=== PATIENT | female | born 1965 | race Caucasian/White ===

== ENCOUNTER 2020-02-10 10:08 | Emergency (ER) | payer OTHER, SELFPAY ==
--- NOTE | ~2020-02-10 | XR_ITS ---
EXAMINATION: XR chest 2V DATE: 02/10/2020 10:33 INDICATION: Posterior back pain. TECHNIQUE: Frontal and lateral views of the chest were obtained. COMPARISON: Chest 2 views 04/06/2019 FINDINGS: There is mild scarring at the lung apices. There is mild atelectasis in lingula. There are lucencies in the lungs, consistent with emphysema. No pleural effusion or pneumothorax. The heart siz e is normal. Surgical clips in the right upper quadrant are likely from cholecystectomy. IMPRESSION: 1. Emphysema. 2. Mild scarring at the lung apices and mild atelectasis in lingula. Reviewed, dictated and finalized at location A.
[2020-02-10 10:16] VITALS: BP 138/84; PULSE 110; RESP 16; TEMP 36.4; O2SAT 99
--- NOTE | 2020-02-10 10:27 | ED.GENADULT ---
HPI - General Adult General Chief complaint: Upper Respiratory Infection Stated complaint: Upper Back Pain Time Seen by Provider: 02/10/20 10:32 Source: patient and RN notes reviewed Mode of arrival: ambulatory Limitations: no limitations History of Present Illness HPI narrative: 54-year-old female presents with complaints of upper respiratory symptoms, chest wall, and upper back tenderness, and intermittent dry cough for the past 7 days. Augmentin for the past 17 days for Sinus Infection, in which she has 3 more days to take, Flonase, and Tylenol (last one 02/09/20) with some relief. Recently completed a Medrol dose pack. Intermittent dry cough without chest congestion. History of COPD and Pneumonia. Denies rhinorrhea and nasal congestion. Denies sore throat. No drooling, neck or throat swelling. No cardiac chest pain, wheezing, or shortness of breath. Exacerbation factor consist of wearing surgical mask. Denies nausea, vomiting, and abdominal pain. Tolerating liquids well. Remains active. The patient reports she have not been diagnosed with COVID-19. The patient reports she is not waiting for the results of a COVID-19 lab test. The patient reports she do not have fever, chills, weakness, fatigue, myalgia, or facial swelling. The patient reports she do not have a new or worsening cough or shortness of breath. Denies chest pain. The patient reports she do not have any rhinorrhea, congestion, sore throat, nausea, vomiting, abdominal pain, and diarrhea. Tolerating po intake well. Denies recent traveling. Denies concerns for COVID-19 or exposures been home since [id number] order except for essential household needs, working, and return home. At this time, patient is not suspected of having COVID-19. Some parts of this dictation were generated by voice recognition software and may contain typographical and/or grammatical inaccuracies. Related Data Home Medications Medication Instructions Recorded Confirmed albuterol sulfate 2 inh INHALATION DIRECTED 02/10/20 02/10/20 Allergies Allergy/AdvReac Type Severity Reaction Status Date / Time pseudoephedrine AdvReac Palpitation Verified 02/10/20 10:23 [From EBD[employer]nik[employer]] s Review of Systems Review of Systems: Narrative: CONSTITUTIONAL: Denies fever, chills, sweats. EYES: Denies visual changes, redness, discharge. ENT: Denies rhinorrhea, congestion, sore throat, otalgia. CARDIOVASCULAR: Denies chest pain, palpitations, edema. RESPIRATORY: Denies dyspnea, wheezing. Complains of intermittent dry cough. GASTROINTESTINAL: Denies abdominal pain, nausea, vomiting, diarrhea. GENITOURINARY: Denies dysuria, hematuria, abnormal discharge. SKIN: Denies rash or itching. MUSCULOSKELETAL: Denies joint pain, myalgia. Complains of diffused chest wall and upper back tenderness. NEUROLOGIC: Denies numbness or focal weakness. PSYCHIATRIC: Denies anxiety or depression. All systems reviewed & are unremarkable except as noted in HPI and below. [facility] Past Medical History Medical History (Updated 02/14/20 @ 23:25 by JULIAN Rowland) Acute infection of sinus Colon abnormality History of colon infection 44 years ago COPD (chronic obstructive pulmonary disease) Nicotine abuse Quite 5 years ago Pneumonia frequent Umbilical hernia X2 Surgical History Surgical History (Updated 02/14/20 @ 23:25 by JULIAN Rowland) History of cholecystectomy History of colonoscopy History of hernia surgery X2 umbilical last repaired 08/2019 or 10/04 per [facility] History of hysterectomy History of shoulder surgery bilateral History of tonsillectomy Hx of appendectomy Family History Family History (Updated 02/14/20 @ 23:27 by JULIAN Rowland) Father Hypertension ETOH abuse Diabetes mellitus Mother AAA (abdominal aortic aneurysm) Social History Social History (Updated 02/14/20 @ 23:28 by JULIAN Rowland) Smoking status: Former smoker T
== END 2020-02-10 11:04 | disposition home or self-care (01) ==
PROVIDERS: Emergency Provider Nurse Practitioner Family; PCP Internal Medicine
DX: M94.0 Chondrocostal junction syndrome [Tietze] (principal); J43.9 Emphysema, unspecified; Z87.891 Personal history of nicotine dependence; R03.0 Elevated blood-pressure reading, without diagnosis of hypertension
CPT/HCPCS: 71046; 99213; G0463

== ENCOUNTER 2022-07-11 14:26 | Emergency (ER) | payer OTHER, SELFPAY ==
--- NOTE | ~2022-07-11 | XR_ITS ---
XR chest 2V 07/11/2022 15:06 Indication: Cough Procedure: 2 view chest Comparison: 02/10/2020 Findings: Heart size normal. There are nodular infiltrates in the left lung base. There is retrocardi ac atelectasis. No pleural effusion, edema or pneumothorax. Impression: 1: Nodular infiltrates left lung base. Recommend follow-up CT chest to exclude parenchymal nodules. 2: Retrocardiac atelectasis. Reviewed, dictated and finalized at location B. Impression: 1: Nodular infiltrates left lung base. Recommend follow-up CT chest to exclude parenchymal nodules. 2: Retrocardiac atelectasis.
--- NOTE | 2022-07-11 14:35 | ED.URI ---
HPI - URI/Sore Throat General Chief Complaint: Back Pain/Injury Stated Complaint: check fluid on lungs Time Seen by Provider: 07/11/22 14:36 Source: patient and RN notes reviewed History of Present Illness HPI Narrative: patient is a 56-year-old female who presents to urgent care with complaints of possible fluid on the lungs . Patient states that she has had a history of pneumonia. States that she is having a mid back pain that started on Friday and a chronic cough since her diagnosis of COVID in May. Patient does have a history of COPD and has been using her inhalers and nebulizers. Denies any fever chest pain not to complaints. No distress noted. Patient aware of the plan of care. Some parts of this dictation were generated by voice recognition software and may contain typographical and/or grammatical inaccuracies. Related Data Home Medications Medication Instructions Recorded Confirmed albuterol sulfate 90 mcg/actuation 2 inh inhalation DIRECTED 02/10/20 02/10/20 aerosol inhaler Allergies Allergy/AdvReac Type Severity Reaction Status Date / Time pseudoephedrine AdvReac Palpitation Verified 02/10/20 10:23 [From [employer]] s Review of Systems Review of Systems: CONSTITUTIONAL: Denies fever, chills, or sweats. EYES: Denies visual changes, redness, or discharge. ENT: Denies rhinorrhea, congestion, sore throat, or otalgia. CARDIOVASCULAR: Denies chest pain, palpitations, or edema. RESPIRATORY: Productive cough without dyspnea GASTROINTESTINAL: Denies abdominal pain, nausea, vomiting, or diarrhea. GENITOURINARY: Denies dysuria or hematuria. SKIN: Denies rash or itching. MUSCULOSKELETAL: reports of midback pain NEUROLOGIC: Denies headache, numbness, or weakness. All other systems reviewed are negative, except as documented in HPI. [facility] Past Medical History Medical History (Updated 07/11/22 @ 15:23 by JULIAN Ventura) Acute infection of sinus Colon abnormality History of colon infection 44 years ago COPD (chronic obstructive pulmonary disease) Nicotine abuse Quite 5 years ago Pneumonia frequent Umbilical hernia X2 Surgical History Surgical History (Updated 02/14/20 @ 23:25 by JULIAN Rowland) History of cholecystectomy History of colonoscopy History of hernia surgery X2 umbilical last repaired 08/2019 or 10/04 per [facility] History of hysterectomy History of shoulder surgery bilateral History of tonsillectomy Hx of appendectomy Family History Family History (Updated 02/14/20 @ 23:27 by JULIAN Rowland) Father Hypertension ETOH abuse Diabetes mellitus Mother AAA (abdominal aortic aneurysm) Social History Social History (Updated 02/14/20 @ 23:28 by JULIAN Rowland) Smoking status: Former smoker Tobacco type: cigarettes Second hand tobacco smoke exposure: No Smoking end date: 09/15/14 Alcohol intake: current Alcohol use details: Socially Substance use: never Gender identity (if verbalized by the patient): Female Comments At the time of my signature, I reviewed and agree with the nursing past medical, surgical, social, and family history. There is no relevant family history pertinent to the patient complaint. Exam Narrative: GENERAL: This is a well-nourished, well-developed patient, in no apparent distress. HEAD: normocephalic, atraumatic. EYES: PERRL. Sclera clear/white. Vision is grossly intact. EARS: External ears normal, auditory canals clear and without drainage, TMs normal without perforation. Hearing grossly intact. NOSE: External nose normal with no obvious nasal discharge, nares without redness, no rhinorrhea. THROAT: Mucous membranes moist, posterior pharynx clear. moderate postnasal drainage NECK: Neck supple, non-tender without lymphadenopathy, masses or thyromegaly. CARDIOVASCULAR: Regular rate and rhythm RESPIRATORY: expiratory wheezes throughout with diminished right lower lobe SKIN
[2022-07-11 14:38] VITALS: BP 151/68; PULSE 80; RESP 20; TEMP 36.9; O2SAT 99
== END 2022-07-11 15:22 | disposition home or self-care (01) ==
PROVIDERS: Emergency Provider Nurse Practitioner Family; PCP Nurse Practitioner Adult Health
DX: R91.1 Solitary pulmonary nodule (principal); Z87.891 Personal history of nicotine dependence; J44.9 Chronic obstructive pulmonary disease, unspecified
CPT/HCPCS: 71046; 99213; G0463

== ENCOUNTER 2024-05-07 10:51 | Emergency (ER) | payer OTHER, SELFPAY ==
[2024-05-07 10:57] VITALS: BP 124/80; PULSE 83; RESP 16; TEMP 36.7; O2SAT 99
--- NOTE | 2024-05-07 11:06 | ED.FEMALEGU ---
HPI - Female Genitourinary General Chief complaint: Urogenital-Female Stated complaint: poss bladder infection Time Seen by Provider: 05/07/24 11:37 Source: patient and RN notes reviewed Mode of arrival: ambulatory Limitations: no limitations History of Present Illness HPI Narrative: 58-year-old female presents with multiple complaints. She reports urine frequency for about 6 weeks. Reports however she has been increasing her fluid intake by quite a bit. She reports general malaise and fatigue. She reports upper back discomfort. She reports some shortness of breath, cough. She reports history of COPD. She reports feeling sweaty. She reports she used her albuterol inhaler and nebulizer today. MD elicited complaint: other (urine frequency) Related Data Home Medications Medication Instructions Recorded Confirmed albuterol sulfate 90 mcg/actuation 2 inh inhalation DIRECTED 02/10/20 05/07/24 aerosol inhaler carbamazepine 100 mg 100 mg PO DAILY 05/07/24 05/07/24 tablet,extended release,12 hr omeprazole 20 mg capsule,delayed 20 mg PO DAILY 05/07/24 05/07/24 release Allergies Allergy/AdvReac Type Severity Reaction Status Date / Time pseudoephedrine AdvReac Palpitation Verified 05/07/24 11:21 [From Taz] s Review of Systems Review of Systems: CONSTITUTIONAL: Reports malaise, fatigue, sweats. Denies fever. CARDIOVASCULAR: Denies chest pain, palpitations, or edema. RESPIRATORY: Reports cough, dyspnea. GASTROINTESTINAL: Reports intermittent lower abdominal discomfort, denies abdominal pain, nausea, vomiting, diarrhea GENITOURINARY: Denies dysuria, urgency, suprapubic pressure. Denies flank pain or hematuria. Reports urine frequency SKIN: Denies rash or itching. MUSCULOSKELETAL: Reports upper back pain, myalgia. All systems reviewed & are unremarkable except as noted in HPI and below PMFSH Past Medical History Medical History (Updated 05/07/24 @ 11:48 by Kim Ortiz NP) Acute infection of sinus Colon abnormality History of colon infection 44 years ago COPD (chronic obstructive pulmonary disease) Nicotine abuse Quite 5 years ago Pneumonia frequent Umbilical hernia X2 Surgical History Surgical History (Updated 02/14/20 @ 23:25 by JULIAN Rowland) History of cholecystectomy History of colonoscopy History of hernia surgery X2 umbilical last repaired 08/2019 or 1/20 per Terri History of hysterectomy History of shoulder surgery bilateral History of tonsillectomy Hx of appendectomy Family History Family History (Updated 02/14/20 @ 23:27 by JULIAN Rowland) Father Hypertension ETOH abuse Diabetes mellitus Mother AAA (abdominal aortic aneurysm) Social History Social History (Updated 02/14/20 @ 23:28 by JULIAN Rowland) Smoking status: Former smoker Tobacco type: cigarettes Second hand tobacco smoke exposure: No Smoking end date: 09/15/14 Alcohol intake: current Alcohol use details: Socially Substance use: never Living arrangements: with family Occupation/Education: occupation Gender identity (if verbalized by the patient): Female Comments At time of signature, agree with nursing past medical, surgical, social and family history. There is no relevant family history pertinent to the presenting complaint Exam Narrative: GENERAL: Well-appearing, well-nourished, and in no acute distress. HEAD: Normocephalic, atraumatic. EYES: PERRLA, sclera clear ENT: Nares clear, turbinates pink, no rhinorrhea or epistaxis. Mucous membranes moist. TM pearly stout with sharp light reflex bilaterally; no tragal tenderness. Oropharynx without erythema or lesions. Tonsils not enlarged and without exudate. NECK: Supple. CHEST: No respiratory distress. Scattered expiratory wheeze, scattered rhonchi. No bony deformities, no asymmetry. Speaks in full sentences. HEART: Regular rate and rhythm. No murmur heard. Normal periph
[2024-05-07 11:15] LABS: EDUAAPPEAR Clear; EDUABILI Negative; EDUABLOOD Negative; EDUACOLOR1 Yellow; EDUAGLUCOSE Negative; EDUAKETONE Negative; EDUALEUKO Negative; EDUANITRATE Negative; EDUAPH 5.5; EDUAPROTEIN Negative; EDUASPGRAVITY 1.015; EDUAUROBILI 0.2
== END 2024-05-07 11:50 | disposition home or self-care (01) ==
PROVIDERS: Emergency Provider Nurse Practitioner
DX: J44.1 Chronic obstructive pulmonary disease with (acute) exacerbation (principal); Z87.891 Personal history of nicotine dependence
CPT/HCPCS: 81003; 99213; G0463

== ENCOUNTER 2024-11-23 14:30 | Emergency (ER) | payer OTHER, SELFPAY ==
--- NOTE | ~2024-11-23 | XR_ITS ---
EXAMINATION: XR chest 2V DATE: 11/23/2024 15:09 INDICATION: Wheezing. Back pain. TECHNIQUE: Frontal and lateral views of the chest were obtained. COMPARISON: Chest 2 views 07/11/2022 FINDINGS: There is no pneumonia, pleural effusion, or pneumothorax. The heart size is normal. There a re surgical clips in the abdomen. IMPRESSION: 1. No acute cardiopulmonary disease. Reviewed, dictated and finalized at location B.
[2024-11-23 14:39] VITALS: BP 151/88; PULSE 94; RESP 18; TEMP 36.7; O2SAT 97
--- NOTE | 2024-11-23 14:52 | ED_ITS ---
HPI - URI/Sore Throat General Chief Complaint: Upper Respiratory Infection Stated Complaint: Back Pain Time Seen by Provider: 11/23/24 14:57 Source: patient, RN notes reviewed and old records reviewed Mode of arrival: ambulatory Limitations: no limitations History of Present Illness HPI Narrative: 59 year old female who presents to [facility] care with complaints of having influenza 3 weeks ago and continues to have cough and pain in her back over left lower lung stout. Patient has history of COPD and did quit smoking 1 year ago. Patient reports that she has been using her albuterol nebulizer taking Benadryl and started on Prednisone at 10mg tabs. Patient reports that she has not had any recent fevers MD elicited complaint: cough and other (pain in left back) Related Data Home Medications ?Medication ?Instructions ?Recorded ?Confirmed ?Last Taken ?Type albuterol sulfate 90 mcg/actuation 2 inh inhalation DIRECTED 02/10/20 05/07/24 Unknown History aerosol inhaler carbamazepine 100 mg 100 mg PO DAILY 05/07/24 05/07/24 Unknown History tablet,extended release,12 hr omeprazole 20 mg capsule,delayed 20 mg PO DAILY 05/07/24 05/07/24 Unknown History release prednisone 10 mg tablet mg 11/23/24 Unknown History Allergies Allergy/AdvReac Type Severity Reaction Status Date / Time pseudoephedrine (From AdvReac Palpitation Verified 05/07/24 11:21 Sudafelisbet) s Review of Systems Review of Systems: CONSTITUTIONAL: Denies malaise, chills, sweats, or fever. EYES: Denies visual changes, redness, or discharge. ENT: Reports rhinorrhea, congestion, no sinus pain, no otalgia and no sore throat. CARDIOVASCULAR: Denies chest pain, palpitations, or edema. RESPIRATORY: Reports cough.? Denies acute dyspnea, reports pain in left back over lower lung area. GASTROINTESTINAL: Denies abdominal pain, nausea, vomiting, diarrhea SKIN: Denies rash or itching. MUSCULOSKELETAL: Denies myalgia. NEUROLOGIC: Denies headache. All systems reviewed & are unremarkable except as noted in HPI and below PMFSH Past Medical History Medical History Colon abnormality History of colon infection 44 years ago Nicotine abuse Quite 5 years ago Umbilical hernia X2 Pneumonia frequent Acute infection of sinus COPD (chronic obstructive pulmonary disease) Surgical History Surgical History History of hernia surgery X2 umbilical last repaired 08/2019 or 10/04 dre [facility] History of colonoscopy History of tonsillectomy History of hysterectomy History of shoulder surgery bilateral History of cholecystectomy Hx of appendectomy Family History Family History Father Hypertension ETOH abuse Diabetes mellitus Mother AAA (abdominal aortic aneurysm) Social History Social History (Updated 11/26/24 @ 16:25 by Park Hunter NP) Smoking status: Former smoker Tobacco type: cigarettes Second hand tobacco smoke exposure: No Additional smoking assessment comments: Reports that she quit 1 year ago Alcohol intake: current Alcohol use details: Socially Substance use: never Living arrangements: with family Occupation/Education: occupation Gender identity (if verbalized by the patient): Female Comments At time of signature, agree with nursing past medical, surgical, social and family history. There is no relevant family history pertinent to the presenting complaint Exam Narrative: GENERAL: Well-appearing, well-nourished, and in no acute distress. HEAD: Normocephalic EYES: PERRLA, conjunctivae clear ENT: Nares clear, turbinates edematous and erythematous, clear discharge. Mucous membranes moist. TM pearly stout with dull light reflex bilaterally; no tragal tenderness. Oropharynx erythematous without lesions. Tonsils not enlarged and without exudate, no drooling, no hoarseness, no trismus, uvula midline.post nasal drainage NECK: Supple. No lymphadenopathy CHEST: scattered wheezing on auscultation, breath sounds equal.+ wheezing,no rhonchi, rales, or stridor. No respiratory distress, speaks in full sentences.cough productive at times, SAO2 97% on room air HEART: Regular rate and rhythm. No murmur heard. SKIN: Warm, dry, no rash. NEURO: Alert and oriented x3. PSYCH: Normal mood and affect Course Course Emergency Course: Patient is aware of diagnosis, understands and agrees to treatment plan.? Anticipatory guidance given.? Patient agrees to follow-up as directed and is aware of reasons to seek care at the emergency department. Portions of this record may have been created with voice recognition software Level of Care: Express Care Visit Vital Signs Vital signs: Vital Signs Temperature 36.7 C 11/23/24 14:39 Pulse Rate 94 11/23/24 14:39 Respiratory Rate 18 11/23/24 14:39 Blood Pressure 151/88 H 11/23/24 14:39 Pulse Oximetry 97 11/23/24 14:39 Oxygen Delivery Room Air 11/23/24 14:39 Temperature 36.7 C 11/23/24 14:39 Pulse Rate 94 11/23/24 14:39 Respiratory Rate 18 11/23/24 14:39 Blood Pressure 151/88 H 11/23/24 14:39 Pulse Oximetry 97 11/23/24 14:39 Oxygen Delivery Room Air 11/23/24 14:39 Reviewed MDM - URI/Sore Throat MDM Narrative Medical decision making narrative: Differential diagnosis considered: Roy virus, strep pharyngitis, allergic rhinitis, upper respiratory tract infection, sinusitis, rhinosinusitis, nasopharyngitis. viral pharyngitis, otitis media, otitis externa, pneumonia, bronchitis, viral cough syndrome, viral syndrome, and influenza, COPD Exacerbation..? Exam findings show no acute concerns or changes; patient is non- toxic appearing and is in no distress.? Patient is appropriate for outpatient treatment and follow-up. Differential Diagnosis Differential diagnosis: Likely upper respiratory infection, viral infection, bronchitis and other (exacerbation of COPD) Medical Records Attestation: I reviewed the patient's medical records. Lab Data Attestation: I reviewed the patient's lab results. Imaging Data Attestation: I personally reviewed and interpreted this imaging study as follows: My impression: no acute cardiopulmonary disease Radiologist's impression: [place] [id number] XRay Report Signed Patient: Terri Fajardo : 1965 MR#: [id number] Age: 59 Acct:[id number] Loc: [facility] ADM Date: 11/23/24Attending Dr: Ordering Physician: Park Hunter APRN Date of Service: 11/23/24 Procedure(s): XR chest 2V Accession Number(s): [id number] cc: Park Hunter APRN; [facility] EXAMINATION: XR chest 2V DATE: 11/23/2024 15:09 INDICATION: Wheezing. Back pain. TECHNIQUE: Frontal and lateral views of the chest were obtained. COMPARISON: Chest 2 views 07/11/2022 FINDINGS: There is no pneumonia, pleural effusion, or pneumothorax. The heart si ze is normal. There are surgical clips in the abdomen. IMPRESSION: 1. No acute cardiopulmonary disease. Reviewed, dictated and finalized at location B. Please be advised this is a medical document. It is intended for [id number] communication. It is written in medical language and may contain unfamiliar abbreviations or verbiage. Medical documents are intended to carry relevant information, facts as evident, and the clinical opinion of the practitioner at the time of the encounter. This report may have been done utilizing a voice recognition system. Attempts have been made to correct errors. However, there may be uncorrected grammatical, spelling, and recognition errors present. The file time of this note does not necessarily represent the time of service. Dictated By: Danilo De La Vega MD 11/23/24 1512 Signed By: <Electronically signed by Danilo De La Vega MD in OV> Critical Care Time Critical Care Time Critical Care Time: No Discharge Plan Discharge Clinical Impression: COPD (chronic obstructive pulmonary disease) Qualifiers: COPD type: emphysema Emphysema type: unspecified Qualified Code(s): J43.9 - Emphysema, unspecified Patient Disposition: Home, Self-Care Condition: Stable Instructions: Antibiotic Form, COPD (Chronic Obstructive Pulmonary Disease) (ED) Additional Instructions: Increase fluids especially juices and water [id number] cough and cold medicine of your choice for your symptoms Recommend Mucinex daily Continue your inhaler/nebulizer as directed Steroids as directed--take with food heat to the face 20-30 minutes 4-6 times a day for pain Salt water gargles, throat lozenges or throat sprays as desired If your symptoms persist, change or worsen significantly before you can contact your personal physician then please, without delay, go to the emergency department for further evaluation. Follow-up with PCP in 7-10 days or sooner if needed Follow up with PCP soon in regards to your blood pressure which is elevated above threshold for referral. Blood pressure above 120/80 may indicate pre- hypertension. 151/88 Patient Language: Kazakh Prescriptions: New prednisone 20 mg tablet 40 mg PO DAILY 5 Days Qty: 10 0RF No Action albuterol sulfate 90 mcg/actuation HFA aerosol inhaler 2 inh INHALATION DIRECTED carbamazepine 100 mg tablet extended release 12 hr 100 mg PO DAILY omeprazole 20 mg capsule,delayed release(DR/EC) 20 mg PO DAILY prednisone 10 mg tablet Follow-up/Referrals: [facility] [Primary Care Provider] - Time of Disposition: 15:29 Quality [place] Coma Scale Eyes: Open Verbal: Oriented and Alert Motor: Follows Commands [place] Coma Total Score: 15
--- OUTSIDE RECORDS SUMMARY | 2024-11-23 16:25 | XMS_ITS | Encounter Summary ---
Author Organization [facility] Address [address] [place] [address] Phone Care Team Providers Care Lumber Material Handler Name Role Phone Venkat Carrion MD Primary Care Provider [phone] Soni Dougherty APRN Primary Care Provider [phone] Diamond Coffman APRN, DYNAMICS AX CONSULTANT Primary Care Pro vider Jagdish Hightower MD Unavailable Dominique Bernstein MD Primary Care Provider [phone] Reason for Visit * Reason Comments Medication Refill Encounter Details Date Type Department Care Team (Late st Contact Info) Description 12/09/2019 Refill [facility] [place] [address] Jagdish Hightower MD [address] [place] [address] Medication Refill Social History Tobacco Use Types Packs/Day Years Used Date Smoking Tobacco: Former Cigarettes 0.3 35 0 03/03/1981 - 03/03/2016 Smokeless Tobacco: Never Comments:down to 1-2 cigaret gabriele today Alcohol Use Standard Drinks/Week Comments Yes 0 (1 standard drink = 0.6 oz pur e alcohol) OCCASSIONALLY SOCIALLY PHQ-2 Answer Date Recorded PHQ-2 Score 0 05/28/2019 Comments No Sex and Gender Information Value Date Recorded Sex Assigned at Not on file Legal Sex Female 9:39 PM CDT Gender Identity Not on file Sexual Orientation Not on file documented as of this encounter Plan of Treatment Upcoming Encounters Date Type Department Care Team (Late st Contact Info) Description 12/03/2024 10:45 AM CDT Office Visit [facility] - Pulmonology & Sleep Medicine [facility] [address] [place] [address] Jagdish Hightower MD [address] [place] [address] documented as of this encounter Visit Diagnoses Not on filedocumented in this encounter Additional Health Concerns Infection Onset Date Last Indicated Resolved Time COVID - 19 06/26/2020 06/26/2020 06/28/2020 4:37 PM CDT COVID - 19 08/22/2020 08/22/2020 08/26/2020 6:00 PM HOME MANAGER COVID - 19 05/25/2021 05/25/2021 06/14/2021 12:1 6 AM CDT Assessment Noted Time PHQ-9 Depression Total Score: 0 09/29/19 20 1:04 PM HOME MANAGER documented as of this encounter Care Teams Lumber Material Handler Relationship Specialty Start Date End Date Venkat Carrion MD [address] [facility] [place] [address] PCP - General Family Medicine 07/27/15 02/20/22 Soni Dougherty APRN [address] [facility] [place] [address] PCP - General Advanced Practice Nurse 02/21/22 09/18/22 Diamond Coffman APRN, DYNAMICS AX CONSULTANT [address] [place] [id number] PCP - General Certified Nurse Practitioner 09/19/22 01/21/24 Dominique Bernstein MD [address] [address] PCP - General Family Medicine 01/22/24 Jagdish Hightower MD [address] [place] [address] Consulting Physician Pulmonary Disease 07/25/22 documented as of this encounter
--- OUTSIDE RECORDS SUMMARY | 2024-11-23 16:25 | XMS_ITS | Data Portability ---
Author Organization [facility] Address [address] [place] [address] Assessment No assessment recorded. Plan of Treatment Reminders Order Date Submit Date Provider Last Modified By Organization Details Last Modified Time Details Appointments SONG ALCANTAR T 30 2024 10:15A M Richard Sanchez MD Not available Not available Not available Lab glucos e, finger stick, blood 2023 024 [email or web address] In-Office Order, Internal Use Only DO Not Attach Compendium DO Not Attach Compendium, Do Not Delete/merge, [id number] 04/26/2024 13:03:37 HbA1c (hemog lobin A1c), blood 2023 024 [facility], [address] [place] [address], [facility], [place], [address], 01/30/2024 11:14:38 CMP, serum or plasma 2023 024 [facility], [address] [place] [address], [facility], [place], [address], 01/30/2024 06:19:30 TSH, ultra- sensit chrissy, serum 2023 024 [facility], [address] [place] [address], [facility], [place], [address], 01/30/2024 11:14:37 CBC w/ auto diff 2023 024 [facility], [address] [facility], [facility], [place], [address], 01/30/2024 06:19:31 Hepati tis C IgG Ab, qual, serum 2023 024 [facility], [address] [facility], [place], [address], 01/30/2024 11:14:36 HIV 1 + 2, meanin gful use set 2023 024 [facility], [address] [facility], [facility], [place], [address], 01/30/2024 11:14:39 Referral behavi oral health referr vt 2023 024 [facility] Oma Reynoso [facility], 4 [facility] , [address], [place], [address], 04/16/2024 11:00:55 gastro entero logist referr vt 2023 024 [email or web address] [address] Gianna Silverman MD, [address] [place], [address], 05/31/2024 10:31:20 Procedures None record ed. Surgeries None record ed. Imaging MAMMO, screen ing, digita l, bilate ral 2023 024 [email or web address] [facility], [address] [facility] , [place], [address], 06/18/2024 09:38:14 Medication Orders Medrol (Schuyler) 4 mg tablet s in a dose pack 2023 [facility], [address], [place], [address], 04/26/2024 13:03:37 colchi cine 0.6 mg tablet 2023 024 [facility] [place], [address], [place], [address], 04/26/2024 13:03:38 nicoti ne 7 mg/24 hr daily transd ermal patch [email or web address], [address] [place], [address], 01/29/2024 18:08:45 carbam azepin e ER 100 mg tablet ,exten ded releas e,12 hr 2023 [facility], [address] [place], [address], 01/29/2024 09:48:30 Ford Nasal 0.65 % spray aeroso l 2023 [facility] [address] [place], [address], 11/27/2023 15:16:54 Patient TargetsNo targets recorded. Patient Instructions Encounter Date Encounter Id Patient Instructions Last Modified By Organization Details Last Modified Time 11/27/2023 [id number] A healthy lifestyle: care instructions [email or web address] Not available 11/27/2023 15:16:41 Attending Physician Addendum I did not personally see or examine the patient with the resident. I was physically present to provide indirect supervision through entire encounter. I have reviewed the documentation and agree with the history, physical findings, work-up, and medical decision making as recorded. Jacqui Lowe MD [email or web address] Not available 11/27/2023 15:29:58 01/29/2024 [id number] Quitting Tobacco : Care Instructions [email or web address] Not available 01/29/2024 09:48:23 smoking cessatio n counseling, greater than 3 minutes up to 10 minutes [email or web address] Not available 01/29/2024 09:48:23 Attending Physician Attestation I did not personally see or examine the patient with the resident. I was physically present to provide indirect supervision through entire encounter. I have reviewed the documentation and agree with the history, physical findings, work-up, and medical decision making as recorded. Pati Taylor MD [email or web address] Not available 01/29/2024 10:19:05 04/26/2024 [id number] Attending Physician Attestation I did not personally see or examine the patient with the resident. I was physically present to provide indirect supervision through entire encounter. I have reviewed the documentation and agree with the history, physical findings, work-up, and medical decision making as recorded. 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 METAB OLIC PANEL (14) glucose 104 mg/dL 70-99 above high normal Not Available [facility] Department [address] [place] [address], [address], 01/30/2024 06:19:30 01/29/20 24 01/29/2024 COMP. METAB OLIC PANEL (14) BUN 17 mg/dL 6-24 Not Available [facility] [address] [place], [address], 01/30/2024 06:19:30 01/29/20 24 01/29/2024 COMP. METAB OLIC PANEL (14) creatinine 0.81 mg/dL 0.76-1 .27 Not Available [facility] [address] [place], [address], 01/30/2024 06:19:30 01/29/20 24 01/29/2024 COMP. METAB OLIC PANEL (14) eGFR 85 >=60 Units for eGFR value s are mL/mi n/1.7 3 The eGFR Calcu latio n has not been valid ated for patie nts under the age of 18. If test resul ts are displ ayed for a patie nt under the age of 18, disre eliezer that value . Not Available [facility] Department [address] [place], [address], 01/30/2024 06:19:30 01/29/20 24 01/29/2024 COMP. METAB OLIC PANEL (14) BUN/creatini ne ratio 21 9-23 Not Available [facility] Department [address] [place], [address], 01/30/2024 06:19:30 01/29/20 24 01/29/2024 COMP. METAB OLIC PANEL (14) sodium 143 mmol/ L 134-14 4 Not Available [facility] Department [address] [place] [address], [address], 01/30/2024 06:19:30 01/29/20 24 01/29/2024 COMP. METAB OLIC PANEL (14) potassium 4.0 mmol/ L 3.5-5. 2 Not Available [facility] Department [address] [place] [address], [address], 01/30/2024 06:19:30 01/29/20 24 01/29/2024 COMP. METAB OLIC PANEL (14) chloride 102 mmol/ L 96-106 Not Available [facility] Department [address] [place], [address], 01/30/2024 06:19:30 01/29/20 24 01/29/2024 COMP. METAB OLIC PANEL (14) carbon dioxide, total 25 mmol/ L 20-29 Not Available [facility] Department [address] [place] [address], [address], 01/30/2024 06:19:30 01/29/20 24 01/29/2024 COMP. METAB OLIC PANEL (14) calcium 10.1 mg/dL 8.7-10 .2 Not Available [facility] Department [address] [place] [address], [address], 01/30/2024 06:19:30 01/29/20 24 01/29/2024 COMP. METAB OLIC PANEL (14) protein, total 7.3 g/dL 6.0-8. 5 Not Available [facility] Department [address] [place], [address], 01/30/2024 06:19:30 01/29/20 24 01/29/2024 COMP. METAB OLIC PANEL (14) albumin 4.6 g/dL 3.8-4. 9 Not Available [facility] Department [address] [place], [address], 01/30/2024 06:19:30 01/29/20 24 01/29/2024 COMP. METAB OLIC PANEL (14) globulin, total 2.7 g/dL 1.5-4. 5 Not Available [facility] [address] [place], [address], 01/30/2024 06:19:30 01/29/20 24 01/29/2024 COMP. METAB OLIC PANEL (14) A/G ratio 2.0 1.2-2. 2 Not Available [facility] [address] [place], [address], 01/30/2024 06:19:30 01/29/20 24 01/29/2024 COMP. METAB OLIC PANEL (14) bilirubin, total 0.5 mg/dL 0.0-1. 2 Not Available [facility] Department [address] [place], [address], 01/30/2024 06:19:30 01/29/20 24 01/29/2024 COMP. METAB OLIC PANEL (14) alkaline phosphatase 75 IU/L 44-121 Not Available [facility] Department [address] [place], [address], 01/30/2024 06:19:30 01/29/20 24 01/29/2024 COMP. METAB OLIC PANEL (14) AST (SGOT) 14 IU/L 0-40 Not Available [facility] Department [address] [place], [address], 01/30/2024 06:19:30 01/29/20 24 01/29/2024 COMP. METAB OLIC PANEL (14) ALT (SGPT) 13 IU/L 0-32 Not Available [facility] Department [address] [place], [address], 01/30/2024 06:19:30 01/29/20 24 01/29/2024 CBC WITH DIFFE RENTI AL/PL ATELE T WBC 6.4 x10e3 /uL 3.4-10 .8 Not Available [facility] Department [address] [place], [address], 01/30/2024 06:19:31 01/29/2001/29/2024 CBC WITH DIFFE RENTI AL/PL ATELE T RBC 5.07 x10e6 /uL 3.77-5 .28 Not Available [facility] Department [address] [place], [address], 01/30/2024 06:19:31 01/29/2001/29/2024 CBC WITH DIFFE RENTI AL/PL ATELE T hemoglobin 16.0 g/dL 11.1-1 5.9 above high normal Not Available [facility] Department [address] [place], [address], 01/30/2024 06:19:31 01/29/2001/29/2024 CBC WITH DIFFE RENTI AL/PL ATELE T hematocrit 48.5 % 34.0-4 6.6 above high normal Not Available [facility] Department [address] [place], [address], 01/30/2024 06:19:31 01/29/2001/29/2024 CBC WITH DIFFE RENTI AL/PL ATELE T MCV 96 fL 79-97 Not Available [facility] Department [address] [place], [address], 01/30/2024 06:19:31 01/29/2001/29/2024 CBC WITH DIFFE RENTI AL/PL ATELE T MCH 31.6 pg 26.6-3 3.0 Not Available [facility] Department [address] [place], [address], 01/30/2024 06:19:31 01/29/20 24 01/29/2024 CBC WITH DIFFE RENTI AL/PL ATELE T MCHC 33.0 g/dL 31.5-3 5.7 Not Available [facility] [address] [place], [address], 01/30/2024 06:19:31 01/29/20 24 01/29/2024 CBC WITH DIFFE RENTI AL/PL ATELE T RDW 12.4 % 11.5-1 4.5 Not Available [facility] Department [address] [place], [address], 01/30/2024 06:19:31 01/29/2001/29/2024 CBC WITH DIFFE RENTI AL/PL ATELE T platelets 238 x10e3 /uL 150-45 0 Not Available [facility] Department [address] [place], [address], 01/30/2024 06:19:31 01/29/2001/29/2024 CBC WITH DIFFE RENTI AL/PL ATELE T neutrophils 49 % notest b. Not Available [facility] Department [address] [place], [address], 01/30/2024 06:19:31 01/29/20 24 01/29/2024 CBC WITH DIFFE RENTI AL/PL ATELE T lymphs 38 % notest b. Not Available [facility] Department [address] [place], [address], 01/30/2024 06:19:31 01/29/2001/29/2024 CBC WITH DIFFE RENTI AL/PL ATELE T monocytes 10 % notest b. Not Available [facility] Department [address] [place], [address], 01/30/2024 06:19:31 01/29/20 24 01/29/2024 CBC WITH DIFFE RENTI AL/PL ATELE T eos 2 % notest b. Not Available [facility] Department [address] [place], [address], 01/30/2024 06:19:31 01/29/2001/29/2024 CBC WITH DIFFE RENTI AL/PL ATELE T basos 1 % notest b. Not Available [facility] Department [address] [place], [address], 01/30/2024 06:19:31 01/29/2001/29/2024 CBC WITH DIFFE RENTI AL/PL ATELE T neutrophils (absolute) 3.1 x10e3 /uL 1.4-7. 0 Not Available [facility] Department [address] [place], [address], 01/30/2024 06:19:31 01/29/20 24 01/29/2024 CBC WITH DIFFE RENTI AL/PL ATELE T lymphs (absolute) 2.4 x10e3 /uL 0.7-3. 1 Not Available [facility] Department [address] [place], [address], 01/30/2024 06:19:31 01/29/2001/29/2024 CBC WITH DIFFE RENTI AL/PL ATELE T monocytes(ab solute) 0.6 x10e3 /uL 0.1-0. 9 Not Available [facility] Department [address] [place], [address], 01/30/2024 06:19:31 01/29/2001/29/2024 CBC WITH DIFFE RENTI AL/PL ATELE T eos (absolute) 0.1 x10e3 /uL 0.0-0. 4 Not Available [facility] Department [address] [place], [address], 01/30/2024 06:19:31 01/29/20 24 01/29/2024 CBC WITH DIFFE RENTI AL/PL ATELE T baso (absolute) 0.1 x10e3 /uL 0.0-0. 2 Not Available [facility] Department [address] [place], [address], 01/30/2024 06:19:31 01/29/20 24 01/29/2024 CBC WITH DIFFE RENTI AL/PL ATELE T immature granulocytes 0.2 % notest b. Not Available [facility] Department [address] [place], [address], 01/30/2024 06:19:31 01/29/20 24 01/29/2024 CBC WITH DIFFE RENTI AL/PL ATELE T immature grans (abs) 0.0 x10e3 /uL 0.0-0. 1 Not Available [facility] Department [address] [place], [address], 01/30/2024 06:19:31 01/29/20 24 01/29/2024 CBC WITH DIFFE RENTI AL/PL ATELE T NRBC 0 % 0-0 Not Available [facility] Department [address] [place], [address], 01/30/2024 06:19:31 01/29/2001/30/2024 INTER PRETA TION: interpretati on: Commen t Not infec rashid with HCV unles s early or acute infec tion is suspe cted (whic h may be delay ed in an immun ocomp romis ed indiv idual ), or other evide nce exist s to indic ate HCV infec tion. Not Available [facility] ([facility]) [address] [facility], [place], [address], 01/30/2024 11:14:35 01/29/20 24 01/30/2024 HCV ANTIB ALFREDITO RFX TO QUANT PCR HCV Ab NON REACTI VE nonrea ctive Not Available [facility] ([facility]) [address] [facility], [place], [address], 01/30/2024 11:14:36 01/29/20 24 01/30/2024 TSH RFX ON ABNOR MAL TO FREE T4 TSH 3.210 uIU/m L 0.450- 4.500 Not Available [facility] ([facility]) [address] [facility], [place], [address], 01/30/2024 11:14:37 01/29/20 24 01/30/2024 HEMOG LOBIN A1C hemoglobin A1C 5.9 % 4.8-5. 6 above high normal Predi abete s: 5.7 - 6.4 Diabe gabriele: >6.4 Glyce jane contr ol for adult s with diabe gabriele: <7.0 Not Available [facility] ([facility]) [address] [facility], [place], [address], 01/30/2024 11:14:38 01/29/20 24 01/30/2024 HIV AB/P2 4 AG WITH REFLE X HIV Ab/P24 Ag screen NON REACTI VE nonrea ctive HIV Negat chrissy HIV-1 /HIV- 2 antib odies and HIV-1 p24 antig en were NOT detec rashid. There is no labor atory evide nce of HIV infec tion. Not Available [facility] ([facility]) [address] [facility], [place], [address], 01/30/2024 11:14:39 04/26/20 24 04/26/2024 gluco se, finge rstic k, blood Blood Glucose: mg/dl 121 Not Available In-Off ice Order Internal Use Only DO Not Attach Compendium DO Not Attach Compendium, Do Not Delete/merge, [id number] 04/26/2024 13:02:07 Result Notes None recorded. Problems Name Problem SNOMED Code Status Onset Date Resolution Date Notes Provider Name and Address Organization Details Recorded Time Hospital inpatient stay within past 30 days 4306888301389 Active 2023 Dominique Bernstein MD Attn: Accounting ,[address] [facility] [place], [address] , [facility] 4 14:56:49 Obesity 705836581 Active 2023 Dominique Bernstein MD Attn: Accounting ,[address] [facility], [place], [address] , [facility] 14:56:50 Hyperlipid emia 12330334 Active 2023 Dominique Bernstein MD Attn: Accounting ,[address] [facility], [place], [address] , [facility] 14:56:52 Chronic obstructiv e pulmonary disease 83582086 Active 2023 Dominique Bernstein MD Attn: Accounting ,[address] [facility], [place], [address] , [facility] 14:56:54 Postviral cough 772410937 Active 2023 Dominique Bernstein MD Attn: Accounting ,[address] [facility], [place], [address] , [facility] 14:56:55 Pain of ear 563439936 Active 2023 Dominique Bernstein MD Attn: Accounting ,[address] [facility], [place], [address] , [facility] 14:56:56 Problem Notes None recorded. Procedures Surgical History Date Name Laterality Status Provider Name and Address Organization Details Recorded Time thyroidectomy completed Sparkle Ca MA [facility] 11/27/2023 14:19:51 Hysterectomy/fatoumata e vagina completed AD [facility] 11/27/2023 14:19:58 repair of shoulder completed AD Jackson [facility] 11/27/2023 14:20:32 Appendectomy completed AD Clement [facility] 11/27/2023 14:20:38 Hernia Repair completed AD [facility] 11/27/2023 14:20:53 Imaging Results None recorded. Procedure Notes None recorded. Medical Equipment None Reported. Allergies Allergen ID Allergen Name Allergen Category Reaction Reaction Severity Criticality Documentation Date Start Date Code Code System Note Provider Name and Address Organization Details Recorded Time 383600 acetamino phen / oxycodone medicatio n Not available Not available Not available 11/27/2023 27032 3 RxNorm Not Available Not Available Not Available 499952 aspirin medicatio n Not available Not available Not available 11/27/2023 1191 RxNorm Not Available Not Available Not Available Medications Name Sig Start Date Stop Date Status Note LastModified by Organization Details LastModified Time atorvastati n 40 mg tablet TAKE 1 TABLET BY MOUTH ONCE DAILY 01/28 completed Not Available Not Available Not Available prednisone 10 mg tablet active Not Available Not Available Not Available ipratropium 0.5 mg-albutero l 3 mg (2.5 mg base)/3 mL nebulizatio n soln USE 1 AMPULE IN NEBULIZER 4 TIMES DAILY active Not Available Not Available No t Available azithromyci n 250 mg tablet TAKE 2 TABLETS BY MOUTH ON DAY 1, AND THEN TAKE 1 TABLET BY MOUTH ONCE A DAY ON DAY 2 THROUGH DAY 5 active Not Available Not Available No t Available carbamazepi ne ER 100 mg tablet,exte nded release,12 hr TAKE 1 TABLET BY MOUTH EVERY 12 HOURS active Not Available Not Available No t Available prednisone 20 mg tablet TAKE 3 TABLETS BY MOUTH ONCE DAILY FOR 5 DAYS active Not Available Not Available No t Available sulfamethox azole 800 mg-trimetho prim 160 mg tablet TAKE 1 TABLET BY MOUTH TWICE DAILY FOR 7 DAYS 04/26 completed Not Available Not Available Not Available omeprazole 40 mg capsule,del ayed release TAKE 1 CAPSULE BY MOUTH ONCE DAILY 11/26 completed Not Available Not Available Not Available lorazepam 0.5 mg tablet 11/26 completed Not Available Not Available Not Available lidocaine 5 % topical patch APPLY 1 PATCH TOPICALLY ONCE DAILY (MAY WEAR UP TO 12 HOURS) active Not Available Not Available No t Available omeprazole 20 mg capsule,del ayed release TAKE 1 CAPSULE BY MOUTH ONCE DAILY active Not Available Not Available No t Available methylpredn isolone 4 mg tablets in a dose pack take 6 tabs orally on day 1, than take 5 tabs orally on day 2, then take 4 tabs orally on day 3, then take 3 tabs orally on day 4, then take 2 tabs orally on day 5, then take 1 tab orally on day 6 active Not Available Not Available No t Available albuterol sulfate HFA 90 mcg/actuati on aerosol inhaler INHALE TWO (2) PUFF(S) BY INHALATIO N ROUTE EVERY FOUR (4) HOURS NEEDED WHEEZING active Not Available Not Available No t Available colchicine 0.6 mg tablet Take 2 tablets on day 1 then 1 hour later take 1 tablet, then take 1 tablet daily for 6 additiona l day 2023 active Not Available Not Available Not Avai lable ondansetron 4 mg disintegrat ing tablet DISSOLVE 1 TABLET IN MOUTH FOR MODERATE NAUSEA OR VOMITING OR 2 TABLETS FOR SEVERE NAUSEA OR VOMITING TWICE DAILY NEEDED 11/26 completed Not Available Not Available Not Available cefdinir 300 mg capsule 11/26 completed Not Available Not Available Not Available metformin ER 500 mg tablet,exte nded release 24 hr TAKE 1 TABLET BY MOUTH ONCE DAILY 04/26 completed Not Available Not Available Not Available nicotine 7 mg/24 hr daily transdermal patch Apply 1 patch(es) every day by transderm al route for 14 days. 2023 active Not Available Not Available Not Avai lable Ford Nasal 0.65 % spray aerosol Take 2 sprays as needed by nasal route as needed for 30 days. 2023 active Not Available Not Available Not Avai lable nitrofurant oin monohydrate /macrocryst als 100 mg capsule TAKE 1 CAPSULE BY MOUTH TWICE DAILY 04/26 completed Not Available Not Available Not Available omeprazole 20 mg tablet,mauricio yed release take one capsule by mouth once daily 01/28 completed Not Available Not Available Not Available Wixela Inhub 250 mcg-50 mcg/dose powder for inhalation INHALE 1 PUFF IN THE MORNING AND AT BEDTIME active Not Available Not Available No t Available Vitals Date Recorded Body height Body mass index (BMI) Body weight Body temperature Respiratory rate Oxygen saturation Oxygen saturation in Arterial blood by Pulse oximetry Heart rate Systolic blood pressure Diastolic blood pressure Provider Name and Address Organization Details Last Updated DateTime 4 157.48 cm 30 kg/m2 34958.8 5 g 98 [degF] 17 /min 98 % 98 % 67 /min 123 mm[Hg] 74 mm[Hg] Sparkle CaAD encarnacion [facility] 4 14:07:44 Date Recorded Body height Body mass index (BMI) Body weight Body temperature Respiratory rate Oxygen saturation Oxygen saturation in Arterial blood by Pulse oximetry Heart rate Systolic blood pressure Diastolic blood pressure Provider Name and Address Organization Details Last Updated DateTime 4 157.48 cm 30.6 kg/m2 59102.2 8 g 97.6 [degF] 18 /min 98 % 98 % 68 /min 127 mm[Hg] 90 mm[Hg] Sparkle Youngshashank AD [facility] 4 09:06:50 Date Recorded Body height Body mass index (BMI) Body weight Respiratory rate Body temperature Heart rate Oxygen saturation Oxygen saturation in Arterial blood by Pulse oximetry Systolic blood pressure Diastolic blood pressure Provider Name and Address Organization Details Last Updated DateTime 4 157.48 cm 30.7 kg/m2 44394.5 2 g 16 /min 97.5 [degF] 94 /min 98 % 98 % 132 mm[Hg] 85 mm[Hg] Lauren Mcgraw MA [facility] 4 11:55:37 Social History Question Answer Notes LastModified by Organizat ion Details LastModified Time Tobacco Smoking Status Former Smoker Sparkle AD Ca [facility], [facility] 11/27/2023 14:19:34 What Is Your Level Of Alcohol Consumption? None Information not available 11/27/2023 What Was The Date Of Your Most Recent Tobacco Screening? 04/26/2024 [email or web address] Information not available 04/26/2024 Do You Use Any Illicit Or Recreational Drugs? No Information not available 11/27/2023 Do You Or Have You Ever Used Any Other Forms Of Tobacco Or Nicotine? No Information not available 11/27/2023 Sex: Female Functional Status None recorded. Mental Status None recorded. Family History Relationship Description Onset Age of this Age Resolved Age Notes LastModified by Organization Details LastModified Time Father Diabetes mellitus [email or web address] Not available 11/26 14:12:40 Father Heart disease [email or web address] Not available 11/26 14:12:47 Mother Cholestanol storage disease [email or web address] Not available 11/26 14:13:34 Paternal Grandmother Aneurysm [email or web address] Not available 14:15:57 Notes:01/29/24 Medical History Condition Response Other Y Thyroid Problems Y Gynecological History Statement/Question Response Age at Menarche 36 Current Control Method Hysterectom y Obstetrics History GPAL:G 2 P 0 0 0 0 Immunizations Vaccine Type Date Status Note Provider Nam e and Address Organization Details Recorded Time Tdap 11/27/2023 completed Jacqui Lowe MD Attn: Accounting,[address] [facility], [place], [address], [facility] 11/27/2023 15:29:36 Past Encounters Encounter ID Performer Location Encounter Start Date Encounter Closed Date Diagnosis/Indication Diagnosis SNOMED-CT Code Diagnosis ICD10 Code Diagnosis Note [id number] Jacqui Lwoe MD [place] [facility] 4 [facility] [address] [place] [address] 11/27/2023 13:49:22 12/01/2023 09:10:22 Obesity 616036872 E66.9 bmi 30Discusse d diet at length including healthier food options, increase vegetable and fiber intake, reduce salt intake, incorporat e yoga/stret mark practices and exercise 30 min 5 x per week to improve cardiovasc ular health. goal 15 lb weight loss Hyperlipidemia 90260968 E78.5 total cholestero l 227, LDL 150, non HDL 175, TG 126, HDL 52 (done @ [facility] 11/2023) recently failed atorvastat in due to muscle aches - failed multiple statinscar diology is working on trying to get the PCKs9 inhibitor Chronic ob structive pulmonary disease 32267648 J44.9 wixela in AM and PM + albuterol sees pulmonolog ist Dr Escobar ssed with patient to add tiotropium for long acting effect - pt expressed understand ing and will discuss with pulmonolog ist to change medication Prediabetes 355703492 R7 3.03 a1c 5.9 with metformin 500 mg po QD once dailyintol erant of metformin (gi s/e) will try weight loss and lifestyle mods Postviral cough 56599780 4 R05.3 post viral URI - recently had flu virus last week and continued cough with associated reminent of congestion likely back pressure to earnormal saline Pain of ear 515676384 H9 2.09 post viral URI - recently had flu virus last week and continued cough with associated reminent of congestion likely back pressure to earnormal saline Hospital i npatient stay within past 30 days [id number] 106 Z76.89 Was in hospital forsepsis + copd exacerbati on + PNA + SIRS criteriamu ltiple hospitaliz ations for COPD exacerbati onPatient has stopped smoking since the hospital CP + HLDseveral days of coughtotal cholestero l 227, LDL 150, non HDL 175, TG 126, HDL 52. 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 27 2023 <-- will work on getting PCKS9 inhibitor since pt is statin intolerant Ex-smoker 3053150 Z87.89 1 Recently quit smoking - 44 days without a cigarette per patientcon tinue on encourage Administra tion of diphtheria, pertussis, and tetanus vaccine 241229807 Z23 tdap [id number] PATI TAYLOR MD [place] 14 IM 4 [facility] [address] [place] [address] 01/29/2024 08:57:55 01/30/2024 11:37:22 Screening mammography 27447158 Z12.31 HIV screening 923628342 Z11.4 Hepatitis C screening 41 7575543 Z11.59 Screening for malignant neoplasm of colon 520101399 Z12.11 Obese 347108844 E66.9 bmi 30.6Discus sed diet at length including healthier food options, increase vegetable and fiber intake, reduce salt intake, incorporat e yoga/stret mark practices and exercise 30 min 5 x per week to improve cardiovasc ular health.cur rently in midst of quitting smoking and making adjustment s to regular plan - a1c- cmp- TSH w reflex Smoker 66177030 F17.200 previous 44 yr smokertrie d wellbutrin (changed mood) and chantix (made her feel funny) pt not agreeable to either medication Discussed risks of smoking, including vascular, cardiac, pulmonary and increased cancer risk. Pt demonstrat es a clear understand ing without further questions or concerns at this time. prefers to continue to try to quit herself without medication is open to patches - 7 mg patch qd x2wk; Info: stop cigarette use at tx onset Fatigue 28850575 R53.83 recently quit smokingtro uble sleeping cbc Mixed anxi ety and depressive disorder 052434101 F41.8 phq9 - 5 , gad7 - 4currently going through significan t life changes and recently quit smoking and feels irritable, angry, mood dis regulated, feels ready to talk to someone due to stress - [facility] Left trige viviana neuralgia [id number] 6250203 G50.0 likely dx with sharp stabbing intermitte nt pain in left jaw carbamazap ine Er 100 mg po bidfollow up in 4 weeks [id number] MD Anne JANSEN 14 4 [facility] [address] [place] [address] 04/26/2024 11:46:24 05/12/2024 08:51:18 Gout 42999358 M10.9 Likely gout with swelling of 1st MTP joint and painful range of motion. Can not take NSAID due to hx of melena. Does have diabetes but is currently diet and exercised controled. Will give colchicine and medrol dose schuyler. If no improvemen t by the end of the 5 days will return for follow up. Offered nasuea mediation but declines at this time. Reports she will call if she needs it. Handout on gout and prevention given to patient in office. Health Concerns Section Related Observation LastModified by Organization Detai ls LastModified Time None Recorded Concern Status LastModified by Organization Details LastModified Time None Recorded Advance Directives Directive None Recorded Payers Encounter Date Sequence Insurance Name Policy Number Policy Grant Covered Member ID Grant Member ID Guarantor Name 11/27/2023 1 [employer] [place] 2020 (MEDICAID REPLACEMENT - HMO) Terri Fajardo [id number] Terri Fajardo 01/29/2024 1 [employer] [place]AC[place] - [place]MO) Terri Fajardo [id number] Terri Fajardo 04/26/2024 1 [employer] [place]AC[place] - [place]MO) Terri Fajardo [id number] Terri Fajardo Notes Date Note Type Note Provider Name and Address Organization Details Recorded Time 4 text/html 58 yo M presents to clinic for follow up visit hospital and establish care. 1) weight loss -- preDM - reverse preDM. Patient cannot tolerater metformin was taking 500 mg po qd. Patient is motivated to lose 15 lbs. 2) HLD -- undercare cardiology 3) COPD -- under care pulmonology 4) post viral LEFT ear pain - no discharge, no fever. Pain with coughing. -- HOSPITAL VISIT --- Was in hospital forsepsis + copd exacerbation + PNA + SIRS criteriamultiple hospitalizations for COPD exacerbationPatient has stopped smoking since the hospital CP + HLDseveral days of coughtotal cholesterol 227, LDL 150, non HDL 175, TG 126, HDL 52. 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 Patient endorses chewing and occasionally has jaw pain while trying to eat - patient endorses density of food does not change jaw pain. Patient endorses sharp pain only on left side but feels fullness of right jaw (diagnosed with nodules in jaw which have been address/assessed as benign). Endorses tinnitis. Denies teeth clenching, night time bruxism, ear discharge, ear pain. 2) anxiety - currently going through significant life changes and recently quit smoking and feels irritable, angry, mood dis regulated, feels ready to talk to someone due to stress. Denies SI or SA. 3) difficulty with quitting smoking -- weight loss -- preDM - reverse preDM. Patient cannot tolerate metformin was taking 500 mg po qd. Patient is motivated to lose 15 lbs. HLD -- undercare cardiology - patient wanted to discuss not being able to tolerate a statin however under care of cardiology who will manage cholesterol and cardiac risk factors in trying to get patient PCKS9 inhibitor. COPD -- under care pulmonology post viral LEFT ear pain - no discharge, no fever. Pain with coughing. HOSPITAL VISIT --- Was in hospital forsepsis + copd exacerbation + PNA + SIRS criteriamultiple hospitalizations for COPD exacerbationPatient has stopped smoking since the hospital CP + HLDseveral days of coughtotal cholesterol 227, LDL 150, non HDL 175, TG 126, HDL 52. 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 Reports pain is so bad it is causing nausea. Has not vomited. No injury to the foot.Pain is worse with movement and weight bearing. It is a sharp pain. Tylenol has not helped the pain. Reports she can not take ibuprofen due to hx of melena after taking NSAIDs. She did take 1 diclofenac tablet not realizing it was an NSAID. No fever or chills. No nausea or vomiting. No recent illness. Denies diet high in red meat or alcohol. 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 Status 11/27/19 24 1 CLOSED Fetus Data First Name Last Name Admitted to NICU Weight (g) Sex Living Outcome Pediatric Complications Fetus ID Race Codes Race Delivery Type [id number] Nick Calculation Initial Nick Date Initial Exam Date Initial Exam Provider Initial Ultrasound Date Last Menstrual Period Date Ultra Sound Weeks Gestation 0 Eighteen To Twenty Week Nick Update Ultra Sound Date Fundal Height At Umbil Quickening Date Ultra Sound Latest Weeks Gestation Final Nick Confirmed By Final Nick Confirmed Date Final Nick Date Ultra Sound Latest Days Gestation 0 0 Menstrual History Last Menstrual Date Menses Monthly On Bcp Conception Prior Menses Frequency Hcg Plus Date Menarche Onset Age Delivery Information Delivery Date Delivery Type Labor Anesthesia Weeks Gestation Incision Type Labor Labor Length Hrs Delivered By Post Complications Tubal Sterilization Discharge Date Comments 4 Discharge Information Feeding Method Contraceptive Method Maternal HG B and HCT Levels Ob Episode Information Episode Created Date Number of Fetuses Patient Bloodtype Patient rh Status Prepregnancy Weight lbs Domestic Partner Domestic Partner Phone Father Name 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 Status 11/27/19 24 1 CLOSED Fetus Data First Name Last Name Admitted to NICU Weight (g) Sex Living Outcome Pediatric Complications Fetus ID Race Codes Race Delivery Type [id number] Nick Calculation Initial Nick Date Initial Exam Date Initial Exam Provider Initial Ultrasound Date Last Menstrual Period Date Ultra Sound Weeks Gestation 0 Eighteen To Twenty Week Nick Update Ultra Sound Date Fundal Height At Umbil Quickening Date Ultra Sound Latest Weeks Gestation Final Nick Confirmed By Final Nick Confirmed Date Final Nick Date Ultra Sound Latest Days Gestation 0 0 Menstrual History Last Menstrual Date Menses Monthly On Bcp Conception Prior Menses Frequency Hcg Plus Date Menarche Onset Age Delivery Information Delivery Date Delivery Type Labor Anesthesia Weeks Gestation Incision Type Labor Labor Length Hrs Delivered By Post Complications Tubal Sterilization Discharge Date Comments 9 Discharge Information Feeding Method Contraceptive Method Maternal HG B and HCT Levels
--- OUTSIDE RECORDS SUMMARY | 2024-11-23 16:25 | XMS_ITS | Encounter Summary ---
Author Organization [facility] Address [address] [place] [address] Phone Care Team Providers Care Wood Planer Name Role Phone Diamond Coffman APRN, CNP Primary Care Pro vider Jagdish Hightower MD Unavailable Dominique Bernstein MD Primary Care Provider [phone] Reason for Visit * Reason Comments Medication Refill Encounter Details Date Type Department Care Team (Late st Contact Info) Description 03/15/2023 Refill [facility] - Pulmonology & Sleep Medicine [facility] [address] [place] [address] Jagdish Hightower MD [address] [place] [address] Medication Refill Social History Tobacco Use Types Packs/Day Years Used Date Smoking Tobacco: Former Cigarettes 0.3 35 0 03/01/1984 - 03/03/2016 Smokeless Tobacco: Never Comments:last cig Alcohol Use Standard Drinks/Week Comments Not Currently 0 (1 standard drink = 0.6 oz pur e alcohol) has not drank in 3-4 years PHQ-2 Answer Date Recorded Total Score - Questions 1-9 0 01/13 Education Answer Date Recorded What is the highest level of school you have completed or the highest degree you have received? 10th grade 08/21/2021 Sexually Active Control Partners Comments Not Currently Male Comments No Sex and Gender Information Value Date Recorded Sex Assigned at Not on file Legal Sex Female 9:39 PM CDT Gender Identity Not on file Sexual Orientation Not on file documented as of this encounter Miscellaneous Notes * Telephone Encounter - Yessica Kyle RN - 03/17/2023 8:51 AM CDT Medication [facility] and [facility] standing order for pediatric and adult patients. documented in this encounter Plan of Treatment Upcoming Encounters Date Type Department Care Team (Late st Contact Info) Description 12/03/2024 10:45 AM CDT [facility] [address] [place] [address] Jagdish Hightower MD [address] [place] [address] documented as of this encounter Visit Diagnoses Not on filedocumented in this encounter Additional Health Concerns Assessment Noted Time PHQ-9 Depression Total Score: 0 01/31/20 21 2:42 PM CDT documented as of this encounter Care Teams Wood Planer Relationship Specialty Start Date End Date Diamond Coffman APRN, OIL BURNER JOURNEYMAN [address] [place] [address] PCP - General Certified Nurse Practitioner 09/19/22 01/21/24 Dominique Bernstein MD [address] [place] [address] [place] [address] PCP - General Family Medicine 01/22/24 Jagdish Hightower MD [address] [place] [address] Consulting Physician Pulmonary Disease 07/25/22 documented as of this encounter
--- OUTSIDE RECORDS SUMMARY | 2024-11-23 16:25 | XMS_ITS | Encounter Summary ---
Author Organization [facility] Address [address] [place] [address] Phone Care Team Providers Care Treasury Manager Name Role Phone Diamond Coffman APRN, CNP Primary Care Pro vider Jagdish Hightower MD Unavailable Dominique Bernstein MD Primary Care Provider [phone] Reason for Visit * Reason Comments Medication Refill Encounter Details Date Type Department Care Team (Late st Contact Info) Description 10/21/2022 Refill [facility] - Pulmonology & Sleep Medicine [facility] [address] [place] [address] Jagdish Hightower MD [address] [place] [address] Medication Refill Social History Tobacco [...] Medical Group - Pulmonology & Sleep Medicine [facility] [address] [place] [address] Jagdish Hightower MD [address] [place] [address] documented as of this encounter Visit Diagnoses Not on filedocumented in this encounter Additional Health Concerns Assessment Noted Time PHQ-9 Depression Total Score: 0 01/31/20 21 2:42 PM CDT documented as of this encounter Care Teams Treasury Manager Relationship Specialty Start Date End Date Diamond Coffman APRN, SENIOR INFORMATICA ETL DEVELOPER [address] [place] [address] PCP - General Certified Nurse Practitioner 09/19/22 01/21/24 Dominique Bernstein MD [address] [place] [address] [place] [address] PCP - General Family Medicine 01/22/24 Jagdish Hightower MD [address] [place] [address] Consulting Physician Pulmonary Disease 07/25/22 documented as of this encounter
--- OUTSIDE RECORDS SUMMARY | 2024-11-23 16:25 | XMS_ITS | Encounter Summary ---
Author Organization [facility] Address [address] [place] [address] Phone Care Team Providers Care Customer Sales Distributor Name Role Phone Diamond Coffman APRN, CNP Primary Care Pro vider Jagdish Hightower MD Unavailable Dominique Bernstein MD Primary Care Provider [phone] Reason for Visit * Reason Comments Medication Refill Encounter Details Date Type Department Care Team (Late st Contact Info) Description 11/24/2023 Refill [facility] - Pulmonology & Sleep Medicine [facility] [address] [place] [address] Zainab Hawknis APRN, BRENDA [address] [address] Medication Refill Social History Tobacco Use Types [...] encounter Miscellaneous Notes * Telephone Encounter - Nighat Oliver RN - 11/24/2023 10:07 AM CDT Medication(s) refilled and signed per [facility] Chronic Medication Refill Standing Order for Pediatricand Adult Patients. Requested Prescriptions Pending Prescriptions Disp Refills Wixela Inhub 250-50 MCG/ACT AEROSOL POWDER, BREATH ACTIVATED [Pharmacy Med Name: Wixela Inhub 250-50 MCG/DOSE Inhalation Aerosol Powder Breath Activated] 60 Each 0 Sig: INHALE 1 PUFF IN THE MORNING AND AT BEDTIME Inhaled Combinations Protocol Passed - 11/24/2023 10:00 AM Passed - Visit with relevant provider in past 12 months or upcoming 90 days Recent Visits Date Type Provider Dept 10/31/23 Office Visit Jagdish Hightower MD [facility] [address] 07/31/23 Office Visit Jagdish Hightower MD [facility] [address] 05/05/23 Office Visit Jagdish Hightower MD [facility] [address] 01/30/23 Office Visit Jagdish Hightower MD [facility] [address] Showing recent visits within past 365 days and meeting all other requirements Future Appointments Date Type Provider Dept 01/30/24 Appointment Jagdish Hightower MD [facility] [address] Showing future appointments within next 90 days and meeting all other requirements Passed - Active short-acting beta agonist prescription documented in this encounter Plan of Treatment Upcoming Encounters Date Type Department Care Team (Late st Contact Info) Description 12/03/2024 10:45 AM CDT Office Visit [facility] - Pulmonology & [facility] Medicine - [place] [address] [place] [address] Jagdish Hightower MD [address] [place] [address] documented as of this encounter Visit Diagnoses Not on filedocumented in this encounter Additional Health Concerns Assessment Noted Time PHQ-9 Depression Total Score: 0 01/31/20 21 2:42 PM CDT documented as of this encounter Care Teams Customer Sales Distributor Relationship Specialty Start Date End Date Diamond Coffman APRN, ELECTRONICS DEPARTMENT MANAGER [address] [place] [address] PCP - General Certified Nurse Practitioner 09/19/22 01/21/24 Dominique Bernstein MD [address] [facility] [address] PCP - General Family Medicine 01/22/24 Jagdish Hightower MD [address] [place] [address] Consulting Physician Pulmonary Disease 07/25/22 documented as of this encounter
--- OUTSIDE RECORDS SUMMARY | 2024-11-23 16:25 | XMS_ITS | Clinical Summary ---
Author Organization [facility] Address [address] [place] [address] Phone Care Team Providers Care Telegraphic Typewriter Repairer Name Role Phone Jagdish Hightower MD Unavailable Dominique Bernstein MD Primary Care Provider [phone] Allergies Active Allergy Reactions Criticality Noted Date Comments Aspirin Palpitations Patient states she is now taking aspirin every for COVID Oxycodone-Acetaminophen Hallucinations Medium 07/01/20 16 Pseudoephedrine Palpitations 06/02/2019 Medications Acetaminophen (TYLENOL PO) Take by mouth as needed. Active omeprazole (PriLOSEC) 40 MG CAPSULE DELAYED RELEASE Take 20 mg by mouth daily. Active ondansetron (ZOFRAN-ODT) 4 MG TABLET DISPERSIBLE Take 1 Tablet by mouth every 8 hours as needed for Nausea - 1st line. 15 Tablet 11/16/19 Active Additional Information Patient not taking.Reported on 07/25/2022 dicyclomine (BENTYL) 20 MG Tablet Take 1 Tablet by mouth every 6 hours as needed for Other. 120 Tablet 1 11/24/19 22 Active Additional Information Patient not taking.Reported on 05/17/2024 metFORMIN (GLUCOPHAGE-XR) 500 MG TABLET SR 24 HR TAKE 1 TABLET BY MOUTH ONCE DAILY FOR 90 DAYS 11/28/19 22 Active atorvastatin (LIPITOR) 40 MG TabletIndicatio ns:Hyperlipidem ia Take 40 mg by mouth nightly. Indications: High Amount of Fats in the Blood Active Wixela Inhub 250-50 MCG/ACT AEROSOL POWDER, BREATH ACTIVATED INHALE 1 PUFF IN THE MORNING AND AT BEDTIME 60 Each 11/24/19 24 Active albuterol 108 (90 Base) MCG/ACT Aerosol Solution TAKE TWO (2) PUFFS BY INHALATION EVERY FOUR (4) HOURS NEEDED FOR WHEEZING. 8.5 g 2 10/08/19 25 Active albuterol (PROVENTIL, VENTOLIN) (2.5 MG/3ML) 0.083% Nebulizer Soln 3 mL by Nebulization route every 4 hours as needed for Shortness of Breath. 360 mL 2 11/19/19 25 Active albuterol (PROVENTIL, VENTOLIN) (2.5 MG/3ML) 0.083% Nebulizer Soln USE 1 VIAL IN NEBULIZER EVERY 4 HOURS NEEDED FOR WHEEZING FOR UP TO 30 DAYS 025 Discontin ued(Reord er) Active Problems Problem Noted Date Diagnosed Date Other hyperlipidemia 06/22/2024 Centrilobular emphysema 06/29/2018 Nodule of right lung 03/26/2018 Tobacco use disorder 03/26/2018 Dysuria 12/26/2017 Colitis 10/03/2017 Functional diarrhea 04/23/2017 Sprain of right rotator cuff capsule 05/22/2016 Bronchitis 04/29/2016 Acute pain of left shoulder 04/05/2016 Gastroesophageal reflux disease without esophagi tis 11/30/2015 Anxiety 11/30/2015 Calculus of gallbladder with other cholecystitis without obstruction Diabetes mellitus Resolved Problems Problem Noted Date Diagnosed Date Resolved Date Screening for colon cancer 04/23/2017 0 01/25/2020 Screening for breast cancer 12/13/2016 01/25/2020 Nausea and vomiting 05/22/2016 01/25/20 20 Physical exam 11/30/2015 01/25/2020 Encounters Date Type Department Care Team Description 11/18/2024 Refill [facility] - Pulmonology & Sleep Medicine [facility] [address] [place] [address] Jagdish Hightower MD 10/07/2024 Refill [facility] - Pulmonology & Sleep Medicine - [place] [address] [place] [address] Jagdish Hightower MD Medication Refill from Last 3 Months Immunizations Immunization Administration Dates Next Due DTAP VACCINE 09/15/2008 Influenza Vaccine greater than 3 yrs 05/22/2012, 08/15/2008 Influenza Vaccine, Quadrivalent, PF 08/20/2017,0 05/23/2016 Influenza, Seasonal, Injectable, Undefined 05/22 Pneumococcal Vaccine Adult - 23 Valent 5 TB Skin Test 07/13/2019 TDAP Vaccine 07/15/2019 Family History Medical History Relation Name Comments No Known Problems Brother No Known Problems Daughter 1 No Known Problems Daughter 2 Diabetes Father Heart Attack Father Heart Disease Father Stroke Father Ovarian Cancer Maternal Grandmother Aneurysm Mother AAA Diabetes Paternal Grandfather Diabetes Paternal Grandmother Heart Disease Paternal Grandmother Relation Name Status Comments Brother Alive Daughter 1 Alive Daughter 2 Alive Father Maternal Grandfather Maternal Grandmother Mother Alive Paternal Grandfather Paternal Grandmother Social History Tobacco Use Types Packs/Day Years Used Date Smoking Tobacco: Former Cigarettes 0.3 35 0 03/01/1984 - 03/03/2016 Smokeless Tobacco: Never Tobacco Cessation:Counseling Given: No Comments:last cig Alcohol Use Standard Drinks/Week Comments [...] on file Sexual Orientation Not on file Last Filed Vital Signs Vital Sign Reading Time Taken Comments Blood Pressure 102/74 06/22/2024 9:50 AM CDT Pulse 76 06/22/2024 9:50 AM CDT Temperature 36.3 C (97.3 F) 05/17/2024 11:56 AM CDT Respiratory Rate 19 06/22/2024 9:50 AM CDT Oxygen Saturation 96% 06/22/2024 9:50 AM CDT Inhaled Oxygen Concentration - - Weight 79.4 kg (175 lb) 06/22/2024 9:50 AM CDT Height 157.5 cm (5' 2 ) 06/22/2024 9:50 AM CDT Body Mass Index 32.01 06/22/2024 9:50 AM CDT Plan of Treatment Upcoming Encounters Date Type Department Care Team (Late st Contact Info) Description 12/03/2024 10:45 AM CDT Office Visit [facility] - Pulmonology & [facility] Medicine [facility] [address] [place] [id number] Jagdish Hightower MD [address] [place] [phone] Health Maintenance Due Date Last Done Comments Diabetes: Eye Exam 1966 Diabetes: Foot Exam 1966 Hepatitis B Immunization (1 of 3 - 19+ 3-dose series) 1985 Pneumococcal Immunization (50+ years) (2 of 2 - PCV) 06/24/2016 06/24/2015 Cologuard 2016 Zoster Immunization (1 of 2) 2016 Immunochemical Fecal Occult Blood 10/05/2018 10/05/2017 Mammogram 02/17/2022 02/17/2021, 03/02/2018 Colonoscopy 10/07/2022 10/07/2017 Colorectal Cancer Screening 10/07/2022 Diabetes: Hemoglobin A1c 12/19/2022 06/20/2022 Influenza Immunization (#1) 2024 12/0 02/2017, 05/23/2016, 05/22/2012, Additional history exists SARS-COV-2 Immunization ( season) 2024 Diabetes: Nephropathy Screening 10/19/2024 10/19/2023, 11/16/2021, 08/22/2021, Additional history exists Respiratory Syncytial Virus (RSV) Immunization (Adult) (1 - 1-dose 75+ series) 2041 10/07/2017 Pneumococcal Immunization Combined Discontinued 06/24/2015 Hepatitis C Virus (HCV) Screening Completed 06/20/2022 DTaP/Tdap/Td Immunization Discontinued 2023, 07/15/2019, 09/15/2008 Meningococcal Immunization (ACWY) Aged Out No longer eligible based on patient's age to complete this topic Rotavirus Immunization Aged Out No lo nger eligible based on patient's age to complete this topic Medical Devices Implanted Type Area Gas Station Attendant Device Identifier Shelf Expiration Date Model / Serial / Lot Mesh Srg Ventralight St Sepra Echo Ps 4.5in Mfl Ltwt Abs Loprfl Strl Seprafilm Polyp Hydrogel Egan - [id number] Implanted:Qty: 1 on 06/04/2019 by Virgilio Ocampo MD at [facility] IMPLANT N/A: Abdomen [employer] 10/12/2020 [id number] / [id number] / [id number] System Fix 5mm Sorbafix 30 Abs Fastener Loprfl Hollow Core Atraumatic Blunt Tip Hernia Repair Lf - [id number] Implanted:Qty: 1 on 06/04/2019 by Virgilio Ocampo MD at [facility] IMPLANT N/A: Abdomen [employer] 07/12/2020 [id number] / [id number] / [id number] Procedures Procedure Name Priority Date/Time Associated Diagnosis Comments CMP (COMPREHENSIVE METABOLIC PANEL) STAT 10/19/2023 12:37 PM RN LPN CNA NORMA SCREENING BILATERAL DIGITAL W CAD W ALIYA Routine 02/17/2021 10:22 AM CDT Encounter for screening mammogram for malignant neoplasm of breast STOOL, OCCULT BLOOD, DIAGNOSTIC, VIA GUAIAC Routine 10/05/2017 7:49 AM RN LPN CNA from Last 3 Months or Most Recently Relevant to Health Maintenance Results * CMP (Comprehensive Metabolic Panel) (10/19/2023 12:37 PM RN LPN CNA) SODIUM 140 136 - 145 mmol/L 10/19/2023 1:11 PM RN LPN CNA [facility] POTASSIUM 4.8 3.5 - 5.1 mmol/L 10/19/2023 1:11 PM RN LPN CNA [facility] CHLORIDE 103 98 - 107 mmol/L 10/19/2023 1:11 PM RN LPN CNA [facility] CO2, VENOUS 29 22 - 30 mmol/L 10/19/2023 1:11 PM [facility] ANION GAP 12.8 <18.0 mmol/L 10/19/2023 1:11 PM [facility] GLUCOSE 94 70 - 99 mg/dL 10/19/2023 1:11 PM [facility] BUN 13 10 - 20 mg/dL 10/19/2023 1:11 PM [facility] CREATININE, BLOOD 0.82 0.60 - 1.00 mg/dL 10/19/2023 1:11 PM [facility] BUN/CREATININE RATIO 16 12 - 20 ratio 10/19/2023 1:11 PM [facility] TOTAL PROTEIN 7.3 6.3 - 8.2 g/dL 10/19/2023 1:11 PM [facility] ALBUMIN 4.3 3.5 - 5.0 g/dL 10/19/2023 1:11 PM [facility] A/G RATIO 1.4 1.0 - 2.2 10/19/2023 1:11 PM [facility] CALCIUM 9.4 8.7 - 10.5 mg/dL 10/19/2023 1:11 PM [facility] T BILI 0.5 0.2 - 1.2 mg/dL 10/19/2023 1:11 PM [facility] SGOT (AST) 13 5 - 34 U/L 10/19/2023 1:11 PM [facility] SGPT (ALT) 14 0 - 55 U/L 10/19/2023 1:11 PM [facility] ALKALINE PHOSPHATASE 65 40 - 150 U/L 10/19/2023 1:11 PM [facility] GFR, ESTIMATED >60 >=60 10/19/2023 1:11 PM [facility] Comment: Creatinine Clearance is the preferred criteria for selecting drug dose adjustments in renally impaired patients. The GFR is provided as additional pertinent clinical information. GFR is reported in mL/min/1.73 sq m. Calculation based on the Chronic Kidney Disease Epidemiology Collaboration (CKD- EPI) equation refit without adjustment for race. GFR, EST. >60 >=60 024 1:11 PM RN LPN CNA [facility] GFR, EST. NONAFRICAN >60 >=60 10/19/2023 1:11 PM RN LPN CNA [facility] Blood Venipuncture / Unknown 10/19/2023 12:37 PM RN LPN CNA 10/19/2023 12:41 PM RN LPN CNA us Loree Light Page PAC CHEMISTRY ORDERABLES Final R esult [facility] [address] [place] [address] * NORMA SCREENING BILATERAL DIGITAL W CAD W ALIYA (02/17/2021 10:22 AM CDT) Anatomical Region Laterality Modality breast Bilateral Mammography 02/17/2021 10:1 7 AM CDT Narrative 02/19/2021 11:25 AM CDT - NORMA SCREENING BILATERAL DIGITAL W CAD W ALIYA BILATERAL DIGITAL SCREENING MAMMOGRAM 3D/2D WITH CAD WITH MEDIOLATERAL OBLIQUE CRANIOCAUDAL: 02/17/2021 The study was acquired using digital technology and interpreted from soft copy. Current study was also evaluated with ICAD version 7.2. 2D digital mammographic views, as well as 3D digital tomosynthesis were performed in the CC and MLO projections. CLINICAL: Routine screening. Patient has no complaints. Previous breast lift. Patient reports a weight increase of 45 pounds. No personal history of cancer. No family history of breast cancer. COMPARISONS: Comparison is made to exams dated: 03/02/2018, 06/17/2015, and 06/11/2014 [facility]. BREAST TISSUE:The tissue of both breasts is predominantly fatty. FINDINGS: No significant masses, calcifications, or other findings are seen in either breast. There has been no significant interval change. IMPRESSION: BI-RAD 1 NEGATIVE There is no mammographic evidence of malignancy. A 1 year screening mammogram is recommended. The patient has been or will be contacted. The patient will be entered into a reminder system with a target due date of 1 year for her next screening exam. Electronically signed by: Anne rain/penrad:02/19/2021 10:33:56 Curriculum Facilitator: Laverne JETT (R)), [facility] letter sent: Normal Exam Reading location: [place] BI-RADS: 1 Negative Procedure Note Anne Diamond MD - 02/19/2021 - NORMA SCREENING BILATERAL DIGITAL W CAD W ALIYA BILATERAL DIGITAL SCREENING MAMMOGRAM 3D/2D WITH CAD WITH MEDIOLATERAL OBLIQUE CRANIOCAUDAL: 02/17/2021 The study was acquired using digital technology and interpreted from soft copy. Current study was also evaluated with ICAD version 7.2. 2D digital mammographic views, as well as 3D digital tomosynthesis were performed in the CC and MLO projections. CLINICAL: Routine screening. Patient has no complaints. Previous breast lift. Patient reports a weight increase of 45 pounds. No personal history of cancer. No family history of breast cancer. COMPARISONS: Comparison is made to exams dated: 03/02/2018, 06/17/2015, and 06/11/2014 [facility]. BREAST TISSUE:The tissue of both breasts is predominantly fatty. FINDINGS: No significant masses, calcifications, or other findings are seen in either breast. There has been no significant interval change. IMPRESSION: BI-RAD 1 NEGATIVE There is no mammographic evidence of malignancy. A 1 year screening mammogram is recommended. The patient has been or will be contacted. The patient will be entered into a reminder system with a target due date of 1 year for her next screening exam. Electronically signed by: Anne rain/penrad:02/19/2021 10:33:56 Curriculum Facilitator: Laverne GALAN (R)(Altag[place]), [facility] letter sent: Normal Exam Reading location: [place] BI-RADS: 1 Negative Venkat Carrion MD IMG MAMMO ORDERABLES Final Re sult * Stool, Occult Blood, Diagnostic (10/05/2017 7:49 AM RN LPN CNA) OCCULT BLOOD DIAG, GI BLEED Negative Negative 10/05/2017 9:53 AM RN LPN CNA [facility] Stool specimen (specimen) STOOL SPECIMEN / Unknown Non-Phlebotomy Collection / Unknown 10/05/2017 7:49 AM RN LPN CNA 10/05/2017 9:45 AM RN LPN CNA Ankush Luevano MD BODY FLUIDS & STOOLS ORD ERABLES Final Result [facility] [place] [address] from Last 3 Months or Most Recently Relevant to Health Maintenance Insurance MEDICAID [employer]ET[employer] BET[employer] Advance Directives Documents on File Type Date Recorded 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 PRE-ARREST: Use entire range of life support measures to stabilize the patient. * Full Code Date Activated Date Inactivated Comments 05/22/2016 1:31 PM 05/24/2016 6:06 PM CPR-Full Treat ment: FULL ARREST: Attempt Resuscitation/CPR wit intubation and mechanical ventilation. PRE-ARREST: Use entire range of life support measures to stabilize the patient. Care Teams Telegraphic Typewriter Repairer Relationship Specialty Start Date End Date Govas, Dominique, MD 4 [facility] [address] [address] PCP - General Family Medicine 01/22/24 Jagdish Hightower MD [address] [place] [phone] Consulting Physician Pulmonary Disease 07/25/22
--- OUTSIDE RECORDS SUMMARY | 2024-11-23 16:25 | XMS_ITS | Encounter Summary ---
Author Organization [facility] Address [address] [place] [address] Phone Care Team Providers Care Oil Recovery Operator Name Role Phone Venkat Carrion MD Primary Care Provider [phone] Soni Dougherty APRN Primary Care Provider [phone] Diamond Coffman APRN, ARCHERY EQUIPMENT REPAIRER Primary Care Pro vider Jagdish Hightower MD Unavailable Dominique Bernstein MD Primary Care Provider [phone] Reason for Visit * Reason Comments Medication Refill Encounter Details Date Type Department Care Team (Late st Contact Info) Description 02/27/2020 Refill [facility] [address] [facility] [place] [place] [address] Jagdish Hightower MD [address] [place] [address] Medication Refill Social History Tobacco [...] on file Sexual Orientation Not on file COVID-19 Exposure Response Date Recorded In the last month, have you been in contact with someone who was confirmed or suspected to have Coronavirus / COVID-19? No / Unsure 02/10/2020 8:35 AM CDT documented as of this encounter Plan of Treatment Upcoming Encounters Date Type Department Care Team (Late st Contact Info) Description 12/03/2024 10:45 AM CDT Office Visit [facility] - Pulmonology & Sleep Medicine [facility] [address] [place] [address] Jagdish Hightower MD [address] [place] [address] documented as of this encounter Visit Diagnoses Not on filedocumented in this encounter Additional Health Concerns Infection Onset Date Last Indicated Resolved Time COVID - 19 06/26/2020 06/26/2020 06/28/2020 4:37 PM CDT COVID - 19 08/22/2020 08/22/2020 08/26/2020 6:00 PM DIRECTOR OF ACADEMIC COVID - 19 05/25/2021 05/25/2021 06/14/2021 12:1 6 AM CDT Assessment Noted Time PHQ-9 Depression Total Score: 0 09/29/19 20 1:04 PM DIRECTOR OF ACADEMIC documented as of this encounter Care Teams Oil Recovery Operator Relationship Specialty Start Date End Date Venkat Carrion MD [address] [address] PCP - General Family Medicine 07/27/15 02/20/22 Soni Dougherty APRN [address] [address] PCP - General Advanced Practice Nurse 02/21/22 09/18/22 Diamond Coffman, EDELMIRA, ARCHERY EQUIPMENT REPAIRER [address] [place] [address] PCP - General Certified Nurse Practitioner 09/19/22 01/21/24 Dominique Bernstein MD [address] [facility] [place] [address] PCP - General Family Medicine 01/22/24 Jagdish Hightower MD [address] [place] [phone] Consulting Physician Pulmonary Disease 07/25/22 documented as of this encounter
--- OUTSIDE RECORDS SUMMARY | 2024-11-23 16:25 | XMS_ITS | Encounter Summary ---
Author Organization [facility] Address [address] [place] [address] Phone Care Team Providers Care Medicaid Nurse Name Role Phone Soni Dougherty APRN Primary Care Provider [phone] Diamond Coffman APRN, WIRE INSULATOR Primary Care Pro vider Jagdish Hightower MD Unavailable Dominique Bernstein MD Primary Care Provider Reason for Visit * Reason Comments Medication Refill Encounter Details Date Type Department Care Team (Late st Contact Info) Description 03/28/2022 Refill [facility] - Family Medicine [facility] [address] [place] [phone] Venkat Carrion MD [address] [address] Medication Refill Social History Tobacco Use Types Packs/Day Years Used Date Smoking Tobacco: Former Cigarettes 0.3 35 0 03/01/1984 - 03/03/2016 Smokeless Tobacco: Never Comments:down to 1-2 cigaret gabriele today Alcohol Use Standard Drinks/Week Comments Not Currently [...] Medical Group - Pulmonology & Sleep Medicine [facility] [address] [place] [address] Jagdish Hightower MD [address] [place] [address] documented as of this encounter Visit Diagnoses Not on filedocumented in this encounter Additional Health Concerns Assessment Noted Time PHQ-9 Depression Total Score: 0 01/31/20 21 2:42 PM CDT documented as of this encounter Care Teams Medicaid Nurse Relationship Specialty Start Date End Date Soni Dougherty APRN PCP - General Advanced Practice Nurse 02/21/22 09/18/22 Diamond Coffman APRN, WIRE INSULATOR [address] [place] [address] PCP - General Certified Nurse Practitioner 09/19/22 01/21/24 Dominique Bernstein MD [address] [facility] [place] [address] PCP - General Family Medicine 01/22/24 Jagdish Hightower MD [address] [place] [address] Consulting Physician Pulmonary Disease 07/25/22 documented as of this encounter
--- OUTSIDE RECORDS SUMMARY | 2024-11-23 16:25 | XMS_ITS | Data Portability ---
Author Organization [facility] EDMdesigner, Main Office Address [address] [place] [address] Assessment Encounter Date Assessment Date Assessment LastModified by Organization Details LastModified Time 06/30/2023 06/30/2023 D/w pt about her findings and further plan of care. Explained about different options for her. Will refer pt to Pain clinic. Meds as directed. OTC symptomatic Rx explained in detail. OTC heat pack as directed prn. Educated about alarming symptoms to monitor at home and call us back Or get checked in ED if any concerns. Cont f/u with Ortho as per schedule. F/u with PCP in 3-4 weeks. [email or web address] Not available 06/30/2023 11:25:24 Plan of Treatment Reminders Order Date Submit Date Provider Last Modified By Organization Details Last Modified Time Details Appointments None recorded. Lab ESR (erythrocyt e sedimentati on rate), [facility] [address] [place], [address], 3 14:33:13 C-reactive protein, quantitativ e, serum or plasma 2022 023 [facility] (Lab), [address] [place], [address], 3 08:19:37 DUTCH (antinuclea r antibodies) screen, ifa, serum 2022 023 [email or web address] [facility] (Lab), [address] [place], [address], 3 10:46:26 uric acid, serum or plasma 2022 023 [facility] (Lab), [address] [place], [address], 3 13:47:08 glycohemogl obin, total, blood [address] (Lab), [address] [place], [address], 3 07:59:58 BMP, serum or plasma [address] (Lab), [address] [place], [address], 3 07:59:58 lipid panel, serum [address] (Lab), [address] [place], [address], 3 07:59:58 vitamin B12 + folate, serum or blood [address] (Lab), [address] [place], [address], 3 09:55:57 amylase + lipase, serum [address] (Lab), [address] [place], [address], 3 15:18:58 magnesium, serum or plasma 2022 023 [facility] (Lab), [address] [place], [address], 3 16:02:14 CMP, serum or plasma 2022 023 [facility] (Lab), [address] [place], [address], 3 14:57:18 glycohemogl obin, total, blood 2022 023 [facility] (Lab), [address] [place], [address], 3 19:56:15 lipid panel, serum 2022 023 [facility] (Lab), [address] [place], [address], 3 15:22:07 Referral pain management referral 2022 023 [email or web address] Maaglis Cueto, [address] [place], [address], 3 12:07:40 physical therapist referral - *Please call pt to schedule* 2022 023 [facility], [address] [place], [address], 3 17:47:[address] referral 2022 023 [email or web address] Dionicio Purcell MD, [address] [place] [address], [address], 3 16:22:59 Procedures None recorded. Surgeries None recorded. Imaging US, thyroid - *Please call pt to schedule* 2022 023 [email or web address] Not available 4 09:17:14 US, thyroid - specialist said to have scanned in 3 mo, and if grown from 08/2022, surgical removal necessary. 2022 023 [facility] ([facility]), [address] [place], [address], 4 07:53:24 MAMMO, screening, bilateral - *Please call patient to schedule* 2022 023 [email or web address] Not available 08:43:38 Medication Orders cyclobenzap rine 10 mg tablet 2022 023 [facility] [place], [address], 11:16:13 diclofenac sodium 75 mg tablet,mauricio yed release 2022 023 [email or web address] [facility], [address] [place], [address], 11:21:38 lidocaine 5 % topical patch 2022 023 [facility], [address] [place], [address], 11:18:08 Patient TargetsNo targets recorded. Patient Instructions Encounter Date Encounter Id Patient Instructions Last Modified By Organization Details Last Modified Time 01/06/2023 [id number] FU in in 3 mo, sooner as needed. Not available 01/09/2023 08:04:50 04/02/2023 [id number] 3 mo for thyroid nodule, copd, dm, gerd, b12 def, anxiety, nausea, uti. Not available 04/02/2023 12:38:07 07/22/2023 [id number] 6 mo for thyroid nodule, copd, dm, gerd, b12 def, anxiety, nausea, uti. Right hand numbness Not available 07/22/2023 11:24:57 Reason for Referral Physical Therapist Referral for Backache *Please call pt to schedule* Referring Physician: [facility], Encounter Date: 04/02/2023 Adult Neurologist Referral for S kin lesion Referring Physician: [facility], Encounter Date: 04/02/2023 Pain Management Referral for Chronic neck pain Chronic neck and middle back pain Referring Physician: [facility], Encounter Date: 06/30/2023 Results Created Date Observation Date Name Description Value Unit Range Abnormal Flag Note LastModifiedBy Organization Detail LastModifiedTime 09/03/20 22 09/03/2022 URINA LYSIS COMPL ETE, IRIS pH 5.5 pH_un its 5.0-9. [address] [facility] (Lab) [address] [place], [address], 09/03/2022 20:50:39 09/03/20 22 09/03/2022 URINA LYSIS COMPL ETE, IRIS color dark-o range abnormal Not Available [facility] (Lab) [address] [place], [address], 09/03/2022 20:50:39 09/03/20 22 09/03/2022 URINA LYSIS COMPL ETE, IRIS appear clear Not Available [facility] (Lab) [address] [place], [address], 09/03/2022 20:50:39 09/03/20 22 09/03/2022 URINA LYSIS COMPL ETE, IRIS specific gravity 1.011 1.001- 1.[address] [facility] (Lab) [address] [place], [address], 09/03/2022 20:50:39 09/03/20 22 09/03/2022 URINA LYSIS COMPL ETE, IRIS leukocytes negati ve ronald/u L negati ve- Not Available [facility] (Lab) [address] [place], [address], 09/03/2022 20:50:39 09/03/20 22 09/03/2022 URINA LYSIS COMPL ETE, IRIS nitrite 1+ negati ve- abnormal Not Available [facility] (Lab) [address] [place], [address], 09/03/2022 20:50:39 09/03/20 22 09/03/2022 URINA LYSIS COMPL ETE, IRIS protein negati ve mg/dL negati ve- Not Available [facility] (Lab) [address] [place], [address], 09/03/2022 20:50:39 09/03/20 22 09/03/2022 URINA LYSIS COMPL ETE, IRIS glucose normal mg/dL normal - Not Available [facility] (Lab) [address] [place], [address], 09/03/2022 20:50:39 09/03/20 22 09/03/2022 URINA LYSIS COMPL ETE, IRIS ketones negati ve mg/dL negati ve- Not Available [facility] (Lab) [address] [place], [address], 09/03/2022 20:50:39 09/03/20 22 09/03/2022 URINA LYSIS COMPL ETE, IRIS urobilinogen 3 mg/dL normal - abnormal Not Available [facility] (Lab) [address] [place], [address], 09/03/2022 20:50:39 09/03/20 22 09/03/2022 URINA LYSIS COMPL ETE, IRIS bilirubin 1 mg/dL negati ve- abnormal Not Available [facility] (Lab) [address] [place], [address], 09/03/2022 20:50:39 09/03/20 22 09/03/2022 URINA LYSIS COMPL ETE, IRIS blood negati ve mg/dL negati ve- Not Available [facility] (Lab) [address] [place], [address], 09/03/2022 20:50:39 09/03/20 22 09/03/2022 URINA LYSIS COMPL ETE, IRIS white blood cells 0-8 /i??h pfi?? 0-8 Not Available [facility] (Lab) [address] [place], [address], 09/03/2022 20:50:39 09/03/20 22 09/03/2022 URINA LYSIS COMPL ETE, IRIS red blood cells 0-4 /i??h pfi?? 0-4 Not Available [facility] (Lab) [address] [facility] [place], [address], 09/03/2022 20:50:39 09/03/20 22 09/03/2022 URINA LYSIS COMPL ETE, IRIS bacteria none Not Available [facility] (Lab) [address] [place], [address], 09/03/2022 20:50:39 09/03/20 22 09/03/2022 URINA LYSIS COMPL ETE, IRIS mucous occasi onal /i??l pfi?? abnormal Not Available [facility] (Lab) [address] [place], [address], 09/03/2022 20:50:39 09/03/20 22 09/03/2022 URINA LYSIS COMPL ETE, IRIS squamous epithelial occasi onal /i??l pfi?? abnormal Not Available [facility] (Lab) [address] [place], [address], 09/03/2022 20:50:39 09/12/20 22 09/12/2022 PROTI ME W/INR protime 9.1 secon ds 9.5-11 .5 low Not Available [facility] (Lab) [address] [place], [address], 09/12/2022 13:18:34 09/12/20 22 09/12/2022 PROTI ME W/INR INR 0.9 INR INDIC ATION S 2.0 - 3.0 PROPH YLAXI S: VENOU S THROM BOSIS (HIGH RISK SURGE RY) AND SYSTE KAILEY EMBOL ISM (TISS UE HEART VALVE S, AMI VALVU LAR HEART DISEA SE AND ATRIA L FIBRI LLATI ON). TREAT MENT: VENOU S THROM BOSIS AND PULMO NARY EMBOL ISM BILEA FLET MECHA NICAL VALVE S IN AORTI C POSIT ION. 2.5 - 3.5 MECHA NICAL PROST HETIC HEART VALVE S (TILT ING DISK VALVE S AND BILEA FLET MECHA NICAL VALVE S IN MEENU L POSIT ION). PREVE NTION OF RECUR RENT MYOCA RDIAL INFAR CTION . ANTIP HOSPH OLIPI D SYNDR OME. Not Available [facility] (Lab) [address] [place], [address], 09/12/2022 13:18:34 09/12/20 22 09/12/2022 PLATE LET COUNT platelets 227 x10'3 /uL 150-40 0 Not Available [facility] (Lab) [address] [place], [address], 09/12/2022 13:14:41 09/26/19 23 09/26/2022 TSH thyroid-stim ulating hormone 2.110 uIU/m L 0.465- 4.680 Not Available [facility] (Lab) [address] [place], [address], 09/26/2022 20:51:26 09/26/19 23 09/26/2022 T4 FREE free T4 0.86 NG/dL 0.78-2 .19 Not Available [facility] (Lab) [address] [place], [address], 09/26/2022 20:51:07 09/26/19 23 09/26/2022 LIPID PANEL cholesterol 242 mg/dL 140-19 9 high NIH NEIL NSUS RECOM MENDA TION FOR KIRAN STERO L: ADULT CHILD LOW RISK: <200 <170 BORDE RLINE : <200- 239 ----- HIGH RISK: >240 >200 Not Available [facility] (Lab) [address] [place], [address], 09/26/2022 19:48:08 09/26/19 23 09/26/2022 LIPID PANEL triglyceride s 147 mg/dL 0-150 NIH NEIL NSUS REPOR T RECOM MENDA TION FOR TRIGL YCERI JOY: ADULT CHILD LOW RISK: <150 ----- BODER LINE: 150-1 99 ----- HIGH RISK: >200 ----- Not Available [facility] (Lab) [address] [place], [address], 09/26/2022 19:48:08 09/26/19 23 09/26/2022 LIPID PANEL HDL cholesterol 62 mg/dL 40- Not Available [facility] (Lab) [address] [place], [address], 09/26/2022 19:48:08 09/26/19 23 09/26/2022 LIPID PANEL LDL cholesterol, calculated 151 mg/dL 0-130 high NIH NEIL NSUS REPOR T RECOM MENDA TIONS FOR LDL: ADULT CHILD LOW RISK <130 <110 (OPTI MAL LDL) <100 ----- BORDE RLINE : 130-1 59 ----- HIGH RISK: >160 >130 A TRIGL YCERI DE RESUL T >400 INVAL IDATE S THE CALCU LATIO N FOR LDL FRACT IONAT ION - THE LDL RESUL T WILL NOT BE REPOR RASHID. Not Available [facility] (Lab) [address] [place], [address], 09/26/2022 19:48:08 01/11/20 23 01/10/2023 COMPR EHENS JACOB METAB OLIC PANEL sodium 141 mmol/ L 137-14 5 Not Available [facility] (Lab) [address] [place], [address], 01/10/2023 14:57:18 01/11/20 23 01/10/2023 COMPR EHENS JACOB METAB OLIC PANEL potassium 4.6 mmol/ L 3.5-5. 1 Not Available [facility] (Lab) [address] [place], [address], 01/10/2023 14:57:18 01/11/20 23 01/10/2023 COMPR EHENS JACOB METAB OLIC PANEL chloride 103 mmol/ L 98-107 Not Available [facility] (Lab) [address] [place], [address], 01/10/2023 14:57:18 01/11/20 23 01/10/2023 COMPR EHENS JACOB METAB OLIC PANEL carbon dioxide 30 mmol/ L 22-30 Not Available [facility] (Lab) [address] [place], [address], 01/10/2023 14:57:18 01/11/20 23 01/10/2023 COMPR EHENS JACOB METAB OLIC PANEL anion gap 12.6 mmol/ L 14-22 low Not Available [facility] (Lab) [address] [place], [address], 01/10/2023 14:57:18 01/11/20 23 01/10/2023 COMPR EHENS JACOB METAB OLIC PANEL glucose 92 mg/dL 70-99 Not Available [facility] (Lab) [address] [place], [address], 01/10/2023 14:57:18 01/11/20 23 01/10/2023 COMPR EHENS JACOB METAB OLIC PANEL BUN 14 mg/dL 8-19 Not Available [facility] (Lab) [address] [place], [address], 01/10/2023 14:57:18 01/11/20 23 01/10/2023 COMPR EHENS JACOB METAB OLIC PANEL creatinine 0.95 mg/dL 0.66-1 .25 Not Available [facility] (Lab) [address] [place], [address], 01/10/2023 14:57:18 01/11/20 23 01/10/2023 COMPR EHENS JACOB METAB OLIC PANEL GFR >60 Refer ence Range : [place] ge GFR Healt hy Adult : >60 mL/mi n/1.7 3 m2 Chron ic Kidne y Disea se: 15-60 mL/mi n/1.7 3 m2 Kidne y Failu re: <15/m L/min /1.73 m2 www.n iddk. nih.g ov The MDRD study equat ion has not been valid ated in child rip <18 years of age; pregn ant women ; the elder ly >85 years of age; or in some racia l or ethni c subgr oups, such as Hispa nics. Outsi de the valid ated mian eters , estim ated GFR is less accur ate, requi ring clini yonas judgm ent on a case- by-ca se basis . Clini yonas inter preta tion for other races and ages must be made by the clini mayda. The MDRD study equat ion has not been valid ated for the evalu ation of serum creat inine relat ed to nutri raymond l statu s or medic ation usage . For perso ns <18 years of age, a pedia tric GFR calcu lator is avail able on the [facility] websi te: https ://maeve power.theresa donald.o rg/pr ofess ional s/kdo qi/gf r_cal culat or Not Available [facility] (Lab) [address] [place], [address], 01/10/2023 14:57:18 01/11/20 23 01/10/2023 COMPR EHENS JACOB METAB OLIC PANEL alkaline phosphatase 61 U/L 38-126 Not Available [facility] (Lab) [address] [place], [address], 01/10/2023 14:57:18 01/11/20 23 01/10/2023 COMPR EHENS JACOB METAB OLIC PANEL alanine aminotransfe rase 22 U/L 0-35 Not Available [facility] (Lab) [address] [place], [address], 01/10/2023 14:57:18 01/11/20 23 01/10/2023 COMPR EHENS JACOB METAB OLIC PANEL aspartate aminotransfe rase 24 U/L 15-37 Not Available [facility] (Lab) [address] [place], [address], 01/10/2023 14:57:18 01/11/20 23 01/10/2023 COMPR EHENS JACOB METAB OLIC PANEL bilirubin, total 0.60 mg/dL 0.20-1 .30 Not Available [facility] (Lab) [address] [place], [address], 01/10/2023 14:57:18 01/11/20 23 01/10/2023 COMPR EHENS JACOB METAB OLIC PANEL calcium 9.8 mg/dL 8.4-10 .2 Not Available [facility] (Lab) [address] [place], [address], 01/10/2023 14:57:18 01/11/20 23 01/10/2023 COMPR EHENS JACOB METAB OLIC PANEL total protein 7.9 g/dL 6.3-8. 2 Not Available [facility] (Lab) [address] [place], [address], 01/10/2023 14:57:18 01/11/20 23 01/10/2023 COMPR EHENS JACOB METAB OLIC PANEL albumin 4.7 g/dL 3.4-5. 0 Not Available [facility] (Lab) [address] [place], [address], 01/10/2023 14:57:18 01/11/20 23 01/10/2023 COMPR EHENS JACOB METAB OLIC PANEL globulin 3.2 g/dL 2.6-4. 2 Not Available [facility] (Lab) [address] [place], [address], 01/10/2023 14:57:18 01/11/20 23 01/10/2023 COMPR EHENS JACOB METAB OLIC PANEL A/G ratio 1.5 ratio 1.0-2. 0 Not Available [facility] (Lab) [address] [place], [address], 01/10/2023 14:57:18 01/11/20 23 01/10/2023 LIPID PANEL cholesterol 235 mg/dL 140-19 9 high NIH NEIL NSUS RECOM MENDA TION FOR KIRAN STERO L: ADULT CHILD LOW RISK: <200 <170 BORDE RLINE : <200- 239 ----- HIGH RISK: >240 >200 Not Available [facility] (Lab) [address] [place], [address], 01/10/2023 15:22:07 01/11/20 23 01/10/2023 LIPID PANEL triglyceride s 136 mg/dL 0-150 NIH NEIL NSUS REPOR T RECOM MENDA TION FOR TRIGL YCERI JOY: ADULT CHILD LOW RISK: <150 ----- BODER LINE: 150-1 99 ----- HIGH RISK: >200 ----- Not Available [facility] (Lab) [address] [place], [address], 01/10/2023 15:22:07 01/11/20 23 01/10/2023 LIPID PANEL HDL cholesterol 55 mg/dL 40- Not Available [facility] (Lab) [address] [place], [address], 01/10/2023 15:22:07 01/11/20 23 01/10/2023 LIPID PANEL LDL cholesterol, calculated 153 mg/dL 0-130 high NIH NEIL NSUS REPOR T RECOM MENDA TIONS FOR LDL: ADULT CHILD LOW RISK <130 <110 (OPTI MAL LDL) <100 ----- BORDE RLINE : 130-1 59 ----- HIGH RISK: >160 >130 A TRIGL YCERI DE RESUL T >400 INVAL IDATE S THE CALCU LATIO N FOR LDL FRACT IONAT ION - THE LDL RESUL T WILL NOT BE REPOR RASHID. Not Available [facility] (Lab) [address] [place], [address], 01/10/2023 15:22:07 01/11/20 23 01/10/2023 VITAM IN B12 (ANGELICA GAETANO ) vb12 440 pg/mL 239-93 1 Not Available [facility] (Lab) [address] [place], [address], 01/10/2023 16:01:54 01/11/20 23 01/10/2023 FOLAT E, SERUM /PLAS MA folate 9.05 NG/mL 2.76-2 0.0 Not Available [facility] (Lab) [address] [place], [address], 01/10/2023 16:01:56 01/11/20 23 01/10/2023 AMYLA SE SERUM amylase 57 U/L 30-110 Not Available [facility] (Lab) [address] [place], [address], 01/10/2023 16:02:06 01/11/20 23 01/10/2023 LIPAS E SERUM lipase 103 U/L 23-300 Not Available [facility] (Lab) [address] [place], [address], 01/10/2023 16:02:10 01/11/20 23 01/10/2023 MAGNE SIUM magnesium 1.7 mg/dL 1.6-2. 3 Not Available [facility] (Lab) [address] [place], [address], 01/10/2023 16:02:14 01/11/20 23 01/10/2023 HEMOG LOBIN A1C HA1C 6.0 % 4.0-6. 0 Diabe gabriele Scree junior Crite jacobo: <5.7% Consi stent with absen ce of diabe gabriele 5.7-6 .4% Consi stent with incre ased risk for diabe gabriele (pred iabet es) >OR=6 .5% Consi stent with diabe gabriele REFER ENCE: Diabe gabriele Care 2016, 39(Martin ppl.1 ):s13 -s22 Not Available [facility] (Lab) [address] [place], [address], 01/10/2023 19:56:15 07/23/2007/23/2023 C REACT JACOB PROTE IN,UL TRA SENS C-reactive protein 0.13 mg/dL 0.0-0. [address] [facility] (Lab) [address] [place], [address], 07/23/2023 13:46:49 07/23/2007/23/2023 BASIC METAB OLIC PANEL sodium 139 mmol/ L 137-[address] [facility] (Lab) [address] [place], [address], 07/23/2023 13:47:04 07/23/2007/23/2023 BASIC METAB OLIC PANEL potassium 4.7 mmol/ L 3.5-5. [address] [facility] (Lab) [address] [place], [address], 07/23/2023 13:47:04 07/23/2007/23/2023 BASIC METAB OLIC PANEL chloride 103 mmol/ L 98-[address] [facility] (Lab) [address] [place], [address], 07/23/2023 13:47:04 07/23/2007/23/2023 BASIC METAB OLIC PANEL carbon dioxide 31 mmol/ L 22-[address] [facility] (Lab) [address] [place], [address], 07/23/2023 13:47:04 07/23/2007/23/2023 BASIC METAB OLIC PANEL anion gap 9.7 mmol/ L 14-22 low Not Available [facility] (Lab) [address] [place], [address], 07/23/2023 13:47:04 07/23/20 23 07/23/2023 BASIC METAB OLIC PANEL glucose 86 mg/dL 70-[address] [facility] (Lab) [address] [place], [address], 07/23/2023 13:47:04 07/23/20 23 07/23/2023 BASIC METAB OLIC PANEL BUN 14 mg/dL 8-19 Not Available [facility] (Lab) [address] [facility] [place], [address], 07/23/2023 13:47:04 07/23/20 23 07/23/2023 BASIC METAB OLIC PANEL creatinine 0.71 mg/dL 0.66-1 .25 Not Available [facility] (Lab) [address] [place], [address], 07/23/2023 13:47:04 07/23/2007/23/2023 BASIC METAB OLIC PANEL GFR >60 Refer ence Range : [place] ge GFR Healt hy Adult : >60 mL/mi n/1.7 3 m2 Chron ic Kidne y Disea se: 15-60 mL/mi n/1.7 3 m2 Kidne y Failu re: <15/m L/min /1.73 m2 www.n iddk. nih.g ov The MDRD study equat ion has not been valid ated in child rip <18 years of age; pregn ant women ; the elder ly >85 years of age; or in some racia l or ethni c subgr oups, such as [facility] nics. Outsi de the valid ated mian eters , estim ated GFR is less accur ate, requi ring clini yonas judgm ent on a case- by-ca se basis . Clini yonas inter preta tion for other races and ages must be made by the clini mayda. The MDRD study equat ion has not been valid ated for the evalu ation of serum creat inine relat ed to nutri raymond l statu s or medic ation usage . For perso ns <18 years of age, a pedia tric GFR calcu lator is avail able on the F websi te: https ://maeve w.theresa donald.o rg/pr ofess ional s/kdo qi/gf r_cal culat or Not Available [facility] (Lab) [address] [place], [address], 07/23/2023 13:47:04 07/23/2007/23/2023 BASIC METAB OLIC PANEL calcium 9.7 mg/dL 8.4-10 .2 Not Available [facility] (Lab) [address] [place] [address], [address], 07/23/2023 13:47:04 07/23/2007/23/2023 LIPID PANEL cholesterol 246 mg/dL 140-19 9 high NIH NEIL NSUS RECOM MENDA TION FOR KIRAN STERO L: ADULT CHILD LOW RISK: <200 <170 BORDE RLINE : <200- 239 ----- HIGH RISK: >240 >200 Not Available [facility] (Lab) [address] [place], [address], 07/23/2023 13:47:06 07/23/2007/23/2023 LIPID PANEL triglyceride s 122 mg/dL 0-150 NIH NEIL NSUS REPOR T RECOM MENDA TION FOR TRIGL YCERI JOY: ADULT CHILD LOW RISK: <150 ----- BODER LINE: 150-1 99 ----- HIGH RISK: >200 ----- Not Available [facility] (Lab) [address] [place], [address], 07/23/2023 13:47:06 07/23/20 23 07/23/2023 LIPID PANEL HDL cholesterol 53 mg/dL 40- Not Available [facility] (Lab) [address] [place], [address], 07/23/2023 13:47:06 07/23/20 23 07/23/2023 LIPID PANEL LDL cholesterol, calculated 169 mg/dL 0-130 high NIH NEIL NSUS REPOR T RECOM MENDA TIONS FOR LDL: ADULT CHILD LOW RISK <130 <110 (OPTI MAL LDL) <100 ----- BORDE RLINE : 130-1 59 ----- HIGH RISK: >160 >130 A TRIGL YCERI DE RESUL T >400 INVAL IDATE S THE CALCU LATIO N FOR LDL FRACT IONAT ION - THE LDL RESUL T WILL NOT BE REPOR RASHID. Not Available [facility] (Lab) [address] [place], [address], 07/23/2023 13:47:06 07/23/20 23 07/23/2023 URIC ACID SERUM uric acid 4.9 mg/dL 2.5-6. 2 Not Available [facility] (Lab) [address] [place], [address], 07/23/2023 13:47:08 07/23/2007/23/2023 SEDIM ENTAT ION RATE erythrocyte sedimentatio n rate 15 mm/HR 0-20 Not Available [facility] (Lab) [address] [place], [address], 07/23/2023 14:33:13 07/23/20 23 07/23/2023 HEMOG LOBIN A1C HA1C 5.9 % 4.0-6. 0 Diabe gabriele Scree junior Crite jacobo: <5.7% Consi stent with absen ce of diabe gabriele 5.7-6 .4% Consi stent with incre ased risk for diabe gabriele (pred iabet es) >OR=6 .5% Consi stent with diabe gabriele REFER ENCE: Diabe gabriele Care 2016, 39(Martin ppl.1 ):s13 -s22 Not Available [facility] (Lab) [address] [place], [address], 07/23/2023 18:00:27 07/23/20 23 07/25/2023 DUTCH BY IFA RFX TITER /ОЬЛГА DANIE antinuclear antibodies, ifa Negati ve Negat jacob <1:80 Borde rline 1:80 Posit jacob >1:80 ICAP nomen clatu re: AC-0 For more infor syed n about Hep-2 cell patte rns use ANApa ttern s.org , the offic ial websi te for the Inter natio nal Conse nsus on Antin uclea r Antib [place] (DUTCH) Patte rns (ICAP ). Perfo rmed at: CB - [facility] [address] [facility], [place] [id number] [facility]8 Lab Direc tor: Madi moeller PhD, Phone : [phone] Not Available [facility] (Lab) [address] [facility], [place], [address], 07/25/2023 09:14:10 09/02/20 22 08/30/2022 US, thyro id No observ ation record ed. [id number] Not Available 11/14/2022 00:42:47 09/17/19 23 09/17/2022 US-fn a W img 1st les [facility] [facility] [address] [place] [address] Patien t Name: KANDIS ARREOLA Access ion #: [id number] Sex: F : 1965 0 Locati on: RAD Attend ing Physic delmer: VERO MOHAN Orderi ng Physic delmer: VERO MOHAN Exam Date: 09/17/19 23 8:28 AM Exam Name: US FNA W IMG 1ST LES Admitt ing Diagno sis(es ): RADIOL OGY REPORT - FINAL EXAM: US FNA W IMG 1ST LES HISTOR Y: US FNA W IMG 1ST LES 56-yea r-old female with multin odular thyroi d, left thyroi d TI-RAD S 4 nodule measur ing up to 1.6 cm, right hemith yroide ctomy about 23 years ago for goiter . COMPAR MAYCO: Outsid e thyroi d ultras ound examin ation dated 2021. TECHNI QUE: EXPLAN ATION: The risks and benefi ts of FNA were discus sed with the patien t, includ ing risks of bleedi ng and infect ion. The patien t agreed to procee d and gave inform ed consen t. The skin of the left side of the neck was marked , and the patien t agreed that the left side was the correc t side. Time-o ut was perfor med. Page 1 of 2 [facility] Joe forman Name: KANDIS ARREOLA Access ion #: [id number] Sex: F : 1965 0 Exam Date: 09/17/19 8:28 AM Exam Name: US FNA W IMG 1ST LES Admitt ing Diagno sis(es ): PROCED URE: The skin of the left neck was prepar ed and draped steril symone with Betadi ne. 1% lidoca ine withou t epinep hrine was used to anesth etize the skin and subcut aneous tissue s. An 18 gauge needle was attach ed to a small syring e and advanc ed into the mixed solid- cystic mass under ultras ound guidan ce. A jabbin g motion was utiliz ed to perfor m FNA. This was repeat ed for a total of 3 passes . The FNA aspira gabriele were given to the pathol ogist who was presen t during the proced ure. Follow ing comple tion of the FNA, pressu re was held over the biopsy site. The skin was cleans ed, and a small bandag e placed . The patien t tolera rashid the proced ure well, and there were no immedi ate compli cation s. Multip le perman ent sonogr aphic images were obtain ed before and during the proced ure. IMPRES LULI: 1. Succes sful ultras ound-g uided FNA of the left thyroi d nodule . 2. Histop atholo gical analys is is yuly Quintana d and electr onical ly signed by: Miguelito mcallister MD Signed Date: 09/17/19 9:50 AM (CT) Dictat ed by: Miguelito mcallister MD (CT) (CT) Page 2 of 2 [id number] [facility] (Imaging) [address] [place], [address], 11/14/2022 00:42:47 01/17/2009/17/2022 US-fn a W img 1st les [facility] [address], [place] [address] [phone] Joe forman Name: KANDIS ARREOLA Access ion #: [id number] Sex: F : 1965 0 Locati on: RAD Attend ing Physic delmer: VERO MOHAN LE Orderi ng Physic delmer: VERO MOHAN Exam Date: 09/17/19 8:28 AM Exam Name: US FNA W IMG 1ST LES Admitt ing Diagno sis(es ): RADIOL OGY REPORT - FINAL WITH ADDEND UM ADDEND UM: Pathol ogy addend um: The patien t underw ent left thyroi d FNA on 2022, which was negati ve for atypic al or malign ant cells. Given these benign findin gs, recomm end follow -up thyroi d ultras ound examin ation in 1-2 years to re-joseph luate left thyroi d 2.3 cm nodule . Follow -up ultras ound examin ation should not be perfor med prior to Decemb er 2022. Create d and electr onical ly signed by: Miguelito mcallister MD Signed Date: 01/17/20 3:11 PM (CT) Dictat ed by: Miguelito mcallister MD (CT) (CT) Page 1 of 3 [facility] Joe t Name: MAXWELL KANDISRAMSES Stewart Access ion #: [id number] Sex: F : 1965 0 Exam Date: 09/17/19 8:28 AM Exam Name: US FNA W IMG 1ST LES Admitt ing Diagno sis(es ): Report _ID: [id number] EXAM: US FNA W IMG 1ST LES HISTOR Y: US FNA W IMG 1ST LES 56-yea r-old female with multin odular thyroi d, left thyroi d TI-RAD S 4 nodule measur ing up to 1.6 cm, right hemith yroide ctomy about 23 years ago for goiter . COMPAR MAYCO: Outsid e thyroi d ultras ound examin ation dated 2021. TECHNI QUE: EXPLAN ATION: The risks and benefi ts of FNA were discus sed with the patien t, includ ing risks of bleedi ng and infect ion. The patien t agreed to procee d and gave inform ed consen t. The skin of the left side of the neck was marked , and the patien t agreed that the left side was the correc t side. Time-o ut was perfor med. PROCED URE: The skin of the left neck was prepar ed and draped steril symone with Betadi ne. 1% lidoca ine withou t epinep hrine was used to anesth etize the skin and subcut aneous tissue s. An 18 gauge needle was attach ed to a small syring e and advanc ed into the mixed solid- cystic mass under ultras ound guidan ce. A jabbin g motion was utiliz ed to perfor m FNA. This was repeat ed for a total of 3 passes . The FNA aspira gabriele were given to the pathol ogist who was presen t during the proced ure. Follow ing comple tion of the FNA, fly panda was held Page 2 of 3 [facility] KANDIS ARREOLA Access ion #: [id number] Sex: F : 1965 0 Exam Date: 09/17/19 23 8:28 AM Exam Name: US FNA W IMG 1ST LES Admitt ing Diagno sis(es ): over the biopsy site. The skin was cleans ed, and a small bandag e placed . The patien t tolera rashid the proced ure well, and there were no immedi ate compli cation s. Multip le perman ent sonogr aphic images were obtain ed before and during the proced ure. IMPRES LULI: 1. Succes sful ultras ound-g uided FNA of the left thyroi d nodule . 2. Histop atholo gical analys is is yuly Quintana d and electr onical ly signed by: Miguelito mcallister MD Signed Date: 09/17/19 9:50 AM (CT) Dictat ed by: Miguelito mcallister MD (CT) (CT) Page 3 of 3 [email or web address] [facility] (Imaging) [address] [place], [address], 01/21/2023 16:47:39 02/04/2002/03/2023 MAMMO , scree junior, bilat eral [facility] [address] [facility] [address], [place] [address] [phone] Joe forman Name: KANDIS ARREOLA L Access ion #: [id number] Sex: F : 1965 4 Locati on: RAD Attend ing Physic delmer: Orderi ng Physic delmer: VERO MOHAN Exam Date: 023 12:34 PM Exam Name: MG SCRN BREAST ALIYA BILAT Admitt ing Diagno sis(es ): MAMMOG LILIA REPORT - FINAL EXAM: MG SCRN BREAST ALIYA BILAT HISTOR Y: routin e mammog davi 57-yea r-old female with no curren t breast compla ints. The patien t has a histor y of bilate ral breast reduct ion surger y in 2009. COMPAR MAYCO: None availa ble. TECHNI QUE: Bilate ral CC and MLO views of the breast s were perfor med. Digita l Mammog lilia images were obtain ed. CAD (compu ter assist ed detect ion) was utiliz ed. 3D Digita l breast tomosy nthesi s was perfor med and used in the interp retati on of images . FINDIN GS: The breast s are almost entire ly fatty. Page 1 of 2 [facility] Joe forman Name: KANDIS ARREOLA L Access ion #: [id number] Sex: F : 1965 4 Exam Date: 12:34 PM Exam Name: MG MONTELONGO BREAST ALIYA BILAT Admitt ing Diagno sis(es ): No masses , asymme tries, suspic ious calcif icatio ns, or reina ectura l distor tion are seen. IMPRES LULI: BIRADS 1: Assess ment comple te. Negati ve. Recomm end annual screen ing mammog liila. Accord ing to the [employer], yearly mammog eleanor are recomm ended starti ng at age 40 and contin uing as long as the woman is in good health . Clinic al Breast Exam should be part of the period ic health exam-a bout every 3 years for women in their 20s and 30s and every year for women 40 and over. Breast self-e xam is an option for women in their 20s. Any breast change noted on the breast self-e xam she would be report ed prompt ly to the [facility]. A negati ve mammog lilia report should not discou rage follow -up or biopsy of a clinic ally signif icant findin g and/or abnorm ality. Dense breast tissue may obscur e small neopla sms. This joe forman has been entere d into a mammog lilia remind er system with a target date for her next mammog davi. Create d and electr onical ly signed by: Miguelito mcallister MD Signed Date: 2:13 PM (CT) Dictat ed by: Miguelito mcallister MD DD: 023 2:13 PM (CT) DT: 023 2:13 PM (CT) Page 2 of 2 [email or web address] [facility] (Imaging) [address] [place], [address], 02/05/2023 08:43:38 04/02/20 23 02/12/2023 XR, thora cic spine , 3 view No observ ation record ed. [email or web address] Not Available 2022 11:07:35 09/18/19 24 US, head + neck, soft tissu e [facility] [address] [place] [address] Patiiliana t Name: KANDIS ARREOLA Access ion #: [id number] Sex: F : 1965 0 Dictat ed By: Scotty Rodrigues Attend ing Physic delmer: VERO MOHAN Orderi ng Physic delmer: VERO MOHAN LE Exam Date: 2023 12:50 PM Exam Name: US NECK/H EAD SOFT TISSUE Admitt ing Diagno sis(es ): ULTRAS OUND SOFT TISSUE HEAD AND NECK CLINIC AL INDICA TION: Thyroi d nodule s TECHNI QUE: Multip le real time sonogr aphic images of the thyroi d were obtain ed. FINDIN GS: Right thyroi d gland is surgic ally remove d. Left thyroi d lobe measur es 4 x 1.4 x 1.4 cm. There is a comple x cyst/s olid 1.8 x 1.4 x 1.3 cm left thyroi d midpol e nodule . There is a 1 cm left inferi or comple x nodule . These were previo usly biopsi ed on 09/17/19. These are grossl y stable when compar ed to the prior study. IMPRES LULI: 1. Previo usly biopsi ed stable TI RADS 4 left thyroi d nodule s. Contin ued follow -up in one year. Electr onical ly Signed by: Scotty Rodrigues at 2023 16:44: 22 PM Page 1 [email or web address] [facility] (Imaging) [address] [place], [address], 09/23/2023 11:45:05 Result Notes None recorded. Problems Name Problem SNOMED Code Status Onset Date Resolution Date Notes Provider Name and Address Organization Details Recorded Time Chronic obstructiv e pulmonary disease 27644606 Active 2021 Not Available [facility] 3 00:38:35 Nausea and vomiting 64001065 Active 2021 Not Available [facility] 3 00:38:35 Hypomagnes emia 817232424 Active 2021 Not Available [facility] 3 00:38:35 Steatosis of liver 073715728 Active 2021 Not Available [facility] 3 00:38:36 Gastroesop hageal reflux disease 844245555 Active 2021 Not Available [facility] 3 00:38:36 Gastropare sis syndrome 549354027 Active 2021 Not Available [facility] 3 00:38:36 Thyroid nodule 208489761 Active 2021 Not Available [facility] 3 00:38:36 Mass of thyroid gland 209567586 Active 2022 Not Available [facility] 3 00:38:36 Gastroesop hageal reflux disease without esophagiti s 590004718 Active 2021 Not Available [facility] 3 00:38:36 Hypertrigl yceridemia 188561824 Active 2021 Not Available [facility] 3 00:38:36 Diverticul itis 667412585 Active 2021 Not Available [facility] 3 00:38:36 Type 2 diabetes mellitus without complicati on 301473331 Active 2021 Not Available [facility] 3 00:38:37 Diverticul ar disease of colon 620548380 Active 2021 Not Available [facility] 3 00:38:37 Radiologic increased density of lung 244012561 Active 2021 Not Available [facility] 3 00:38:37 Nausea 299547867 Active 2021 Not Available [facility] 3 00:38:37 Acute urinary tract infection 663482339 Active 2021 Not Available [facility] 3 00:38:37 Gastritis 4310183 Active 2021 Not Available [facility] 3 00:38:37 Anxiety 06883391 Active 2021 Not Available [facility] 3 00:38:37 Hyperlipid emia 84140994 Active 2021 Not Available [facility] 3 00:38:38 Vitamin B12 deficiency (non anemic) 09801506 Active 2021 Not Available [facility] 3 00:38:38 Diabetes mellitus 12869444 Active 2021 Not Available [facility] 3 00:38:38 Smoker 53175199 Active 2021 Not Available [facility] 3 00:38:38 Hyperglyce jenna 02872337 Active 2021 Not Available [facility] 3 00:38:38 Hepatomega ly 36700282 Active 2021 Not Available [facility] 3 00:38:38 Cramp in lower limb 683356253 Active 2022 Diamond Mohan NP [address], [place], [address] , [place] [facility] 3 12:34:26 Abdominal pain 75263976 Active 2022 Diamond Mohan NP [address], [place], [address] , [place] [employer] [facility] 3 12:35:27 Skin lesion 75644054 Active 2022 Diamond Mohan NP [address], [place], [address] , [employer] [facility] 3 13:13:07 Backache 178922128 Active 2022 Diamond Mohan NP [address], [place], [address] , [place] [facility] 3 12:23:54 Degenerati on of thoracic interverte bral disc 32134559 Active 2022 Diamond Mohan NP [address], [place], [address] , [place] [facility] [place] [facility] 3 12:36:27 Degenerati on of cervical interverte bral disc 42283130 Active 2022 Diamond Mohan NP [address], [place], [address] , [employer] [facility] 3 12:36:34 Chronic thoracic back pain 1529586024166 03 Active 2022 Sancho Poole MD [address], [place], [address] , [employer] [place] [employer] [facility] 3 11:09:03 Chronic neck pain 0801560466101 Active 2022 Sancho Poole MD [address], [place], [address] , [employer] [facility] 3 11:09:13 Cervical radiculopa thy 80441514 Active 2022 Sancho Poole MD [address], [place], [address] , [employer] 3 11:09:26 Overweight 092453148 Active 2022 Sancho Poole MD [address], [place], [address] , [employer] 3 11:10:12 Ex-smoker 4533012 Active 2022 Sancho Poole MD [address], [place], [address] , [employer] 3 11:10:20 Neuropathy 822619753 Active 2022 Sancho Poole MD [address], [place], [address] , [employer] 3 11:25:02 Multiple joint pain 83573266 Active 2022 Diamond Mohan NP [address], [place], [address] , [employer] 3 11:14:48 Problem Notes None recorded. Procedures Surgical History Date Name Laterality Status Provider Name and Address Organization Details Recorded Time 09/15/19 Hernia Repair completed Not Available [facility] 11/14/2022 00:35:37 09/15/19 13 Cholecystectomy completed Not Available [facility] 11/14/2022 00:35:37 09/15/18 98 tonsilectomy/adeno ids completed Not Available [facility] 11/14/2022 00:35:37 09/15/18 81 Appendectomy completed Not Available [facility] 11/14/2022 00:35:37 Hysterectomy completed Not Available [facility] 11/14/2022 00:35:37 Imaging Results Imaging Date Name Status LastModified by Organiz ation Details LastModified Time 09/17/2022 US-fna W img 1st les completed [id number] [facility] (Imaging) [address] [place], [address], 11/14/2022 00:42:47 08/30/2022 US, thyroid completed [id number] Information not available 11/14/2022 00:42:47 09/17/2022 US-fna W img 1st les completed [email or web address] [facility] (Imaging) [address] [place], [address], 01/21/2023 16:47:39 02/03/2023 MAMMO, screening, bilateral completed [email or web address] [facility] (Imaging) [address] [place], [address], 02/05/2023 08:43:38 02/12/2023 XR, thoracic spine, 3 view completed [email or web address] Information not available 06/30/2023 11:07:35 09/18/2023 US, head + neck, soft tissue completed [email or web address] [facility] (Imaging) [address] [place], [address], 09/23/2023 11:45:05 Procedure Notes None recorded. Medical Equipment None Reported. Allergies Allergen ID Allergen Name Allergen Category Reaction Reaction Severity Criticality Documentation Date Start Date Code Code System Note Provider Name and Address Organization Details Recorded Time 07946 acetamino phen / hydrocodo ne medicatio n Not available Not available Not available 11/14/2022 27338 2 RxNorm Not Available [facility] 3 00:42:20 00139 Sudafed medicatio n Not available Not available Not available 11/14/2022 06312 2 RxNorm Not Available [facility] 3 00:42:20 32173 acetamino phen / oxycodone medicatio n Not available Not available Not available 11/14/2022 69145 3 RxNorm Not Available [facility] 3 00:42:20 Medications Name Sig Start Date Stop Date Status Note LastModified by Organization Details LastModified Time cyclobenza ottoniel 10 mg tablet Take 1 tablet every 12 hours by oral route as needed for 30 days. active Not Available Not Available No t Available fluticason e 250 mcg-salmet shawn 50 mcg/dose blistr powdr for inhalation INHALE 1 DOSE BY MOUTH TWICE DAILY 07/22 completed Not Available Not Available Not Available prednisone 10 mg tablet TAKE 1 TABLET BY MOUTH ONCE DAILY 09/03 completed Not Available Not Available Not Available albuterol sulfate 2.5 mg/3 mL (0.083 %) solution for nebulizati on USE 1 VIAL IN NEBULIZE R EVERY 4 HOURS NEEDED FOR WHEEZING FOR UP TO 30 DAYS active Not Available Not Available No t Available fluconazol e 150 mg tablet TAKE ONE TABLET BY MOUTH A ONE-TIME DOSE 11/27 completed Not Available Not Available Not Available sucralfate 1 gram tablet TAKE 1 TABLET BY MOUTH EVERY 6 HOURS 11/27 completed Not Available Not Available Not Available ciprofloxa danette 500 mg tablet Take 1 tablet every 12 hours by oral route for 10 days. 08/22 completed Not Available Not Available Not Available omeprazole 40 mg capsule,de layed release TAKE 1 CAPSULE BY MOUTH ONCE DAILY 01/22 completed Not Available Not Available Not Available tramadol 50 mg tablet Take 1 tablet every 6 hours by oral route. 08/22 completed Not Available Not Available Not Available ondansetro n 8 mg disintegra ting tablet DISSOLVE 1 TABLET IN MOUTH TWICE DAILY NEEDED FOR 10 DAYS 08/22 completed Not Available Not Available Not Available dicyclomin e 20 mg tablet TAKE 1 TABLET BY MOUTH EVERY 6 HOURS NEEDED active Not Available Not Available No t Available amitriptyl ine 10 mg tablet TAKE 1 TABLET BY MOUTH NIGHTLY 11/27 completed Not Available Not Available Not Available doxycyclin e monohydrat e 100 mg capsule TAKE 1 CAPSULE BY MOUTH TWICE DAILY 08/22 completed Not Available Not Available Not Available cyanocobal isaac (vit B-12) 1,000 mcg/mL injection solution Inject 1 mL every month by subcutan eous route. 07/22 completed Not Available Not Available Not Available lidocaine 5 % topical patch APPLY 1 PATCH TOPICALL Y ONCE DAILY (MAY WEAR UP TO 12 HOURS) 2022 active Not Available Not Available Not Avai lable nicotine 21 mg/24 hr daily transderma l patch Apply 1 patch every day by transder mal route for 100 days. 06/30 completed Not Available Not Available Not Available omeprazole 20 mg capsule,de layed release TAKE 1 CAPSULE BY MOUTH ONCE DAILY active Not Available Not Available No t Available diclofenac sodium 75 mg tablet,del ayed release Take 1 tablet every 12 hours by oral route as needed for 30 days. active Not Available Not Available No t Available hydroxyzin e HCl 25 mg tablet Take 1 tablet 3 times a day by oral route as needed. 07/22 completed Not Available Not Available Not Available cefuroxime axetil 500 mg tablet TAKE 1 TABLET BY MOUTH TWICE DAILY FOR 6 DAYS 08/22 completed Not Available Not Available Not Available albuterol sulfate HFA 90 mcg/actuat ion aerosol inhaler INHALE 2 PUFFS BY MOUTH EVERY 4 HOURS NEEDED FOR WHEEZING active Not Available Not Available No t Available ondansetro n 4 mg disintegra ting tablet DISSOLVE 1 TABLET IN MOUTH FOR MODERATE NAUSEA OR VOMITING OR 2 TABLETS FOR SEVERE NAUSEA OR VOMITING TWICE DAILY NEEDED 06/30 completed Not Available Not Available Not Available metformin ER 500 mg tablet,ext ended release 24 hr TAKE 1 TABLET BY MOUTH ONCE DAILY active Not Available Not Available No t Available sertraline 50 mg tablet Take 1 tablet every day by oral route. active Not Available Not Available No t Available amoxicilli n 875 mg-potassi um clavulanat e 125 mg tablet TAKE 1 TABLET BY MOUTH EVERY 12 HOURS FOR 7 DAYS 11/27 completed Not Available Not Available Not Available Zetia 10 mg tablet Take 1 tablet every day by oral route for 30 days. 05/21 completed Not Available Not Available Not Available rosuvastat in 10 mg tablet Take 1 tablet every day by oral route at bedtime for 30 days. 05/07 completed Not Available Not Available Not Available nitrofuran toin monohydrat e/macrocry stals 100 mg capsule Take 1 capsule every 12 hours by oral route. 09/17 completed Not Available Not Available Not Available Symbicort 160 mcg-4.5 mcg/actuat ion HFA aerosol inhaler INHALE 2 PUFFS BY MOUTH TWICE DAILY 01/06 completed Not Available Not Available Not Available GaviLyte-G 236 gram-22.74 gram-6.74 gram-5.86 gram oral solution TAKE DIRECTED 01/21 completed Not Available Not Available Not Available ketorolac 30 mg/mL injection solution Inject 1 mL every day by intraven ous route for 1 day. 09/03 completed Not Available Not Available Not Available Livalo 2 mg tablet Take by oral route for 90 days. 10/03 completed PA denied Not Available Not Available Not Available BinaxNOW COVID-19 Ag Self Test kit Use as Directed on the Package 05/31 completed Not Available Not Available Not Available Paxlovid 300 mg (150 mg x 2)-100 mg tablets in a dose pack TAKE DIRECTED 08/22 completed Not Available Not Available Not Available Vitals Date Recorded Body mass index (BMI) Body height Oxygen saturation Oxygen saturation in Arterial blood by Pulse oximetry Heart rate Respiratory rate Body temperature Body weight Systolic blood pressure Diastolic blood pressure Provider Name and Address Organization Details Last Updated DateTime 3 28.3 kg/m2 157.48 cm 95 % 95 % 88 /min 16 /min 98.2 [degF] 30149.8 2 g 114 mm[Hg] 78 mm[Hg] Not Available [facility] 3 00:37:01 Date Recorded Body height Body mass index (BMI) Body weight Body temperature Heart rate Respiratory rate Oxygen saturation Oxygen saturation in Arterial blood by Pulse oximetry Pain severity - 0-10 verbal numeric rating [Score] - Reported Systolic blood pressure Diastolic blood pressure Provider Name and Address Organization Details Last Updated DateTime 3 157.48 cm 30.1 kg/m2 16252.9 g 98 [degF] 75 /min 16 /min 98 % 98 % 2 130 mm[Hg] 84 mm[Hg] Diamond De Souza RN [facility] [employer] [facility] 3 12:07:09 Date Recorded Body height Body mass index (BMI) Body weight Body temperature Heart rate Oxygen saturation Oxygen saturation in Arterial blood by Pulse oximetry Systolic blood pressure Diastolic blood pressure Provider Name and Address Organization Details Last Updated DateTime 3 157.48 cm 27.4 kg/m2 39408.4 1 g 98.7 [degF] 80 /min 97 % 97 % 109 mm[Hg] 83 mm[Hg] Rita eMrrill MA [facility] [employer] [facility] 3 12:10:39 Date Recorded Body height Body mass index (BMI) Body weight Body temperature Heart rate Respiratory rate Oxygen saturation Oxygen saturation in Arterial blood by Pulse oximetry Systolic blood pressure Diastolic blood pressure Provider Name and Address Organization Details Last Updated DateTime 3 157.48 cm 26.9 kg/m2 91930.4 3 g 97.1 [degF] 82 /min 16 /min 98 % 98 % 110 mm[Hg] 78 mm[Hg] Antonio Sherwood [facility] [employer] [facility] 3 10:52:07 Date Recorded Body height Body mass index (BMI) Body weight Body temperature Heart rate Respiratory rate Oxygen saturation Oxygen saturation in Arterial blood by Pulse oximetry Pain severity - 0-10 verbal numeric rating [Score] - Reported Systolic blood pressure Diastolic blood pressure Provider Name and Address Organization Details Last Updated DateTime 3 157.48 cm 27.1 kg/m2 63290.4 2 g 96.6 [degF] 58 /min 16 /min 98 % 98 % 3 122 mm[Hg] 80 mm[Hg] Diamond De Souza RN [facility] [employer] [facility] 3 10:55:36 Social History Question Answer Notes LastModified by Organization Details LastModified Time Tobacco Smoking Status Former Smoker using patches instead Not Available [facility] 11/14/2022 00:35:01 Do You Have An Advance Directive? No Information not available 01/06/2023 What Is Your Level Of Alcohol Consumption? None MIGRATION.0301 [id number] Information not available 11/14/2022 What Is Your Level Of Caffeine Consumption? Moderate MIGRATION.0301 [id number] Information not available 11/14/2022 What Is Your Code Status? Full Code Information not available 01/06/2023 In The 14 Days Before Symptom Onset, Have You Had Close Contact With A Laboratory-confi rmed COVID-19 While That Case Was Ill? No Information not available 01/06/2023 In The 14 Days Before Symptom Onset, Have You Had Close Contact With A Person Who Is Under Investigation For COVID-19 While That Person Was Ill? No Information not available 01/06/2023 Are You Currently Employed? No Information not available 01/06/2023 What Type Of Diet Are You Following? REGULAR MIGRATION.0301 [id number] Information not available 11/14/2022 Which Illicit Or Recreational Drugs Have You Used? Gummies MIGRATION.0301 [id number] Information not available 11/14/2022 How Many Days Of Moderate To Strenuous Exercise, Like A Brisk Walk, Did You Do In The Last 7 Days? 3 Information not available 07/22/2023 On Those Days That You Engage In Moderate To Strenuous Exercise, How Many Minutes, On Average, Do You Exercise? 10 Information not available 07/22/2023 Have There Been Any Changes To Your Family Or Social Situation? No MIGRATION.0301 [id number] Information not available 11/14/2022 Do You Use Insect Repellent Routinely? No MIGRATION.0301 [id number] Information not available 11/14/2022 Where Do You Live? [place]LevelHouse MIGRATION.0301 [id number] Information not available 11/14/2022 Do You Have A Medical Power Of Public Health Veterinarian? No Information not available 01/06/2023 What Was The Date Of Your Most Recent Tobacco Screening? 01/02/2022 MIGRATION.0301 [id number] Information not available 11/14/2022 Do You Have Any Pets? Yes Dog-- Yorkie MIGRATION.0301 [id number] Information not available 11/14/2022 What Is Your Relationship Status? MIGRATION.0301 [id number] Information not available 11/14/2022 Do You Use Your Seat Belt Or Car Seat Routinely? Yes Information not available 01/06/2023 Do You Have Smoke And Carbon Monoxide Detectors In Your Home? Yes MIGRATION.0301 277996 Information not available 11/14/2022 Are You Passively Exposed To Smoke? No MIGRATION.0301 220910 Information not available 11/14/2022 Are There Any Smokers In Your House? No MIGRATION.0301 951601 Information not available 11/14/2022 How Much Tobacco Do You Smoke? 1 PPW MIGRATION.0301 887436 Information not available 11/14/2022 What Types Of Sporting Activities Do You Participate In? Walk Information not available 07/22/2023 Do You Feel Stressed (tense, Restless, Nervous, Or Anxious, Or Unable To Sleep At Night)? [id number] Information not available 01/06/2023 Do You Use Any Illicit Or Recreational Drugs? Yes MIGRATION.0301 657286 Information not available 11/14/2022 Do You Use Sunscreen Routinely? Yes MIGRATION.0301 385941 Information not available 11/14/2022 Have You Recently Traveled Abroad? No MIGRATION.0301 798639 Information not available 11/14/2022 Have You Used IV Drugs? No MIGRATION.0301 821917 Information not available 11/14/2022 Do You Or Have You Ever Used Any Other Forms Of Tobacco Or Nicotine? No MIGRATION.0301 664046 Information not available 11/14/2022 Sex: Female Functional Status Question Answer Note LastModified by Organizat ion Details LastModified Time What is your exercise level? Occasional Information not available 07/22/2023 Mental Status None recorded. Family History Relationship Description Onset Age of this Age Resolved Age Notes LastModified by Organization Details LastModified Time Father Diabetes mellitus MIGRATION.942 [id number] Not available 11/14/2022 00:35:41 Mother Aortic aneurysm MIGRATION.729 [id number] Not available 11/14/2022 00:35:41 Mother Osteoporosis MIGRATION.0 30 [id number] Not available 11/14/2022 00:35:41 Medical History Condition Response ANXIETY DISORDER Y DIABETES, TYPE Y Abdominal Pain Y Gynecological History Statement/Question Response If Post Menopausal, Age at Menopause 51 Date of Last Mammogram 02/03/2023 Date of Last Colonoscopy Most Recent Mammogram Most Recent Bone Density Obstetrics History GPAL:G 0 P 0 0 0 0 Past Encounters Encounter ID Performer Location Encounter Start Date Encounter Closed Date Diagnosis/Indication Diagnosis SNOMED-CT Code Diagnosis ICD10 Code Diagnosis Note [id number] [facility] [address] [facility] [address] , [place] [address] 11/27/2021 00:00:00 11/27/2021 13:41:25 [id number] [facility] [address] , [place] [address] 12/04/2021 00:00:00 12/04/2021 10:39:53 [id number] _ATHENA_M IGRATION_ DEFAULT_1 _1 , 01/02/2022 00:00:00 01/02/2022 11:37:06 [id number] [facility] [address] [place] [address] y , [place] [address] 01/21/2022 00:00:00 01/21/2022 09:12:49 [id number] [facility] [address] [place] [address] [place] [address] 02/05/2022 00:00:00 02/05/2022 10:16:20 [id number] [facility] [address] [place] [address] [place] [address] 02/12/2022 00:00:00 02/12/2022 20:43:52 [id number] [facility] [address] [place] [address] [place] [address] 02/19/2022 00:00:00 02/19/2022 10:31:07 [id number] [facility] [address] [place] [address] [place] [address] 02/26/2022 00:00:00 02/26/2022 10:44:12 [id number] [facility] [address] [facility] [place] [address] 03/19/2022 00:00:00 03/19/2022 11:07:18 [id number] [facility] [address] , [place] [address] 04/23/2022 00:00:00 04/23/2022 13:30:02 [id number] [facility] [address] , [place] [address] 05/23/2022 00:00:00 05/23/2022 11:12:58 [id number] [facility] [address] [facility] [address] , [place] [address] 05/31/2022 00:00:00 05/31/2022 18:13:31 [id number] [facility] [place] [address] [facility] [address] , [place] [address] 07/04/2022 00:00:00 07/04/2022 10:45:36 [id number] [facility] [place] [address] [place] [address] y , [place] [address] 08/05/2022 00:00:00 08/05/2022 13:28:02 [id number] [facility] [address] [address] 09/03/2022 00:00:00 09/03/2022 17:02:03 [id number] [facility] [address] [address] 09/17/2022 00:00:00 09/17/2022 15:54:37 [id number] Diamond Mohan NP [facility] Family [address] [address] 01/06/2023 11:47:34 01/06/2023 13:02:01 Chronic obstructive pulmonary disease 84826397 J44.9 Albuterol Neb, albuterol inhaler.Luciano torres Gastroesop hageal reflux disease 111906156 K21.[address] Marah Stokes. Mass of thyroid gland 23 7541049 E04.9 US, thyroid needed. If enlarged will need to get surgical removal of lesions. Pt will need new referral to new surgeon if removal of anything needed. Type 2 jan betes mellitus without complication 537636839 E11.9 metformin ER 500 mg po daily. Hyperlipidemia 26188047 E78.5 low fat diet. Anxiety 31678564 F41.9 Hydroxyzin e HCL 25 mg po tid prn. Still anxious and tearful regarding health. Vitamin B1 2 deficiency (non anemic) 59619451 E53.8 B12 supplement Nausea and vomiting 1692 1999 R11.2 ondansetro n 4 mg.Omepraz ole 40 mg Cramp in lower limb 4499 32601 R25.2 Magnesium level. Abdominal pain 77321244 R10.9 Always- Back on dicyclomin e 20 mg po q 6 hours Screening for malignant neoplasm of breast 678739850 Z12.39 Mammogram ordered. [id number] Diamond Mohan NP [facility] [address] [address] 04/02/2023 11:53:50 04/02/2023 12:42:25 Chronic obstructive pulmonary disease 04430342 J44.9 Albuterol Neb, albuterol inhaler.Wi xelaSmokin g cessation. Type 2 jan betes mellitus without complication 744584691 E11.9 metformin ER 500 mg po daily. Gastroesop hageal reflux disease 830290174 K21.[address] Marah Stokes.Om eprazole 20 mg from 40 mg on 01/22/23 Vitamin B1 2 deficiency (non anemic) 78224759 E53.8 B12 supplement Smoker 98184905 F17.200 Anxiety 77135536 F41.9 Hydroxyzin e HCL 25 mg po tid prn. Still anxious and tearful regarding health. Nausea 310956382 R11.0 Off the zofran. treating with peppermint . Backache 224750590 M54.9 Referring to PT.Pt states she has been to chiro before.Sci atica bilateral at times. Skin lesion 96897506 L98 .9 Derm referral requested per pt case to get few lesions looked at. Hyperlipidemia 97690697 E78.5 low fat diet. 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 Has specialist appt 09/2023 Degenerati on of cervical intervertebral disc 24236339 M50.30 not interested in surgery. Has specialist appt 09/2023 [id number] Sancho Poole MD [address] [address] 06/30/2023 10:46:06 06/30/2023 11:34:49 Chronic thoracic back pain 0160786201 19859 M54.6 Chronic neck pain 224328 9726 107 M54.2 Cervical radiculopathy 41072318 M54.12 Degenerati on of thoracic intervertebral disc 25180428 M51.34 Ex-smoker 9810439 Z87.89 1 Overweight 985234490 E66 .3 Type 2 jan betes mellitus without complication 725752742 E11.9 Neuropathy 092938081 G62 .9 [id number] Diamond Mohan NP [address] [address] 07/22/2023 10:45:08 07/22/2023 11:25:41 Chronic obstructive pulmonary disease 61511684 J44.9 Albuterol Neb, albuterol inhaler.Wi xelaSmokin g cessation. Type 2 jan betes mellitus without complication 472307233 E11.9 metformin ER 500 mg po daily. Gastroesop hageal reflux disease 064173240 K21.[address] Marah Stokes.Om eprazole 20 mg from 40 mg on 01/22/23 Vitamin B1 2 deficiency (non anemic) 73695160 E53.8 B12 supplement Smoker 88934446 F17.200 cessation encouraged . 1 ppd Anxiety 73080997 F41.9 Hydroxyzin e HCL 25 mg po tid prn. Nausea 750314472 R11.0 Off the zofran. treating with peppermint . Backache 330622223 M54.9 Referring to PT.Pt states she has been to chiro before.Sci atica bilateral at times. Hyperlipidemia 63622828 E78.5 low fat diet. Degenerati on of thoracic intervertebral disc 90826268 M51.34 not interested in surgery. Has specialist appt 09/2023 Degenerati on of cervical intervertebral disc 33103838 M50.30 not interested in surgery. Has specialist appt 09/2023 Multiple joint pain 3567 8005 M25.50 seeing pain management .Will get arthritis panel. Thyroid nodule 696101977 E04.1 Health Concerns Section Related Observation LastModified by Organization Detai ls LastModified Time None Recorded Concern Status LastModified by Organization Details LastModified Time None Recorded Advance Directives Directive N: Payers Encounter Date Sequence Insurance Name Policy Number Policy Grant Covered Member ID Grant Member ID Guarantor Name 01/06/2023 1 [employer] [place] 2020 (MEDICAID REPLACEMENT - HMO) Terri Arreola [id number] Terri Arreola 04/02/2023 1 [employer] [place] REPLAC[place] - [place]MO) Terri Arreola [id number] Terri Arreola 06/30/2023 1 [employer] [place] 2020 [place]PLAC[place] - [place]MO) Terri Arreola [id number] Terri Arreola 07/22/2023 1 [employer] [place]AC[place] - [place]MO) Terri Arreola [id number] Terri Arreola Notes Date Note Type Note Provider Name and Address Organization Details Recorded Time 01/06/2023 text/html Here for 3 mo nelson up. Recently filed for disability. States she doesn't feel good. Feeling in an attack with stomach. Last week started green foamy vomit. Started back on dicyclomine tid-qid. Seeing GI. States she has a hard time eating. Has been trying to avoid carbs, sugar, fats. Only on liquids right now. Has been on 4 mg bid of zofran for the past 2 years.States she feels like she is worse because her nutrients are off from not being able to eat. States she is not bouncing back from Covid. Feeling like she was getting better, but then covid, and now everything going downhill. COPD- Dr. Hightower- on meds.GERD- Feeling hungry but getting sick when she does eat. Had 'severe' case of gastritis via scope. No stricture. Dr. Marah Stokes. Has been on zofran.Lipid- Raised in Sep 2022.Muscle aches- having cramps in muscles, legs, toes. Hard to function with muscle spasms.Thyroid- Will need new US thyroid- told to get in 3 mo, but last imaging done August 2022. Ahmed- lung doctor for physical formDoesn't have psych- has a disability form for mental health. Diamond Mohan NP [address] [facility], [place], [address], [employer] 01/09/2023 08:06:03 04/02/2023 text/html Here for follow up. Still having shoulder, neck and back pain.Having trouble walking at times. Has been from lower back pain.Down on weight 15 lbs. Changed diet. Drinking only water.Still forgetful and wheezing at times. TUna, cheese, milk., iced coffee. Tried protein shake- hurts stomach.Using natural supplements. Diamond Mohan NP [address] [facility], [address], [place], [address], [employer] 04/02/2023 12:40:36 06/30/2023 text/html ACV: C/o chronic middle back & neck area pain for last few yrs. Pt denies any trauma/injury in the past. Pt had few x-rays done in 02/04 and has done about 9 sessions of PT for it. Her pain over shoulders got better, but her neck and middle back area pain is still there. Pt is taking otc pain med for this, but its not helping her. Denies any workman's comp. For last month, she is getting random tingling and numbness over her Rt UE and few times over her Lt LE. Denies any incontinence. Pt has seen Ortho for her Rt shoulder pain and is doing well with it. H/o smoking in the past. Sancho Poole MD [address] [facility], [address], [place], [address], [employer] [facility] [employer] 06/30/2023 11:27:15 07/22/2023 text/html Here for follow up. Having hip right side pain. Lower back. Having pain into lower legs and right lateral hand. No longer having pain in back around bra strap. Did not get labs done- plans to get done this week Started back on bentyl- has been helping since restarted.Can't eat a lot of veggies as it flares colon. Always feeling hungry.Has been fasting intermittently to avoid gaining weight. Has been starving one time, and then too full and bloating. She is aware she doesn't eat right. Loves broccoli, but very gassy. Diamond Mohan, JIN [address] [facility], [facility] [address], [place], [address], [place] [employer] 07/22/2023 11:25:31 OBGyn Episode No OBEpisode recorded.
--- OUTSIDE RECORDS SUMMARY | 2024-11-23 16:25 | XMS_ITS | Referral Summary ---
Author Organization [facility] Address [address] [place] [address] Care Team Providers Care Cash Control Specialist Name Role Phone Augustus Diamond Hull DRILL PRESS OPERATOR HELPER Primary Care Provider + Dominique Bernstein MD Unavailable Carloz Padilla NP Unavailable [phone] Allergies Active Allergy Reactions Criticality Noted Date Comments Aspirin Palpitations Low 02/21/2022 Patient states she is now taking aspirin every for COVID Hydrocodone-Acetaminophe n Other (See comments) Low 02/21/2022 Oxycodone Oxycodone-Acetaminophen Hallucinations Medium 07/01/20 16 Pseudoephedrine Unknown Lkprotl-Fby-Gjp Reductase Inhibitors Muscle pain High 10/22/2023 Could not get out of bed Specifically tried Lipitor and Zocor Medications fluticasone propion-salmeteroL (Wixela Inhub) 250-50 mcg/dose diskus inhaler Inhale 1 puff 2 (two) times a day 08/28/20 21 Active acetaminophen (TYLENOL) 500 mg tablet Take by mouth as needed Active amitriptyline (ELAVIL) 10 mg tablet Take 1 tablet (10 mg total) by mouth nightly 30 tablet 11 09/24/19 22 Active Additional Information Patient not taking.Reported on 11/27/2023 dicyclomine (BENTYL) 20 mg tablet Take 1 tablet (20 mg total) by mouth every 6 (six) hours as needed (Crampy abdominal pain) 20 tablet 11/06/19 22 Active Additional Information Patient not taking.Reported on 11/27/2023 ondansetron ODT (ZOFRAN-ODT) 4 mg disintegrating tablet Dissolve 1 tablet for mild to moderate nausea or vomiting or 2 tablets for severe nausea or vomiting oral twice a day as needed. 15 tablet 06/06/20 Active Additional Information Patient not taking.Reported on 11/27/2023 omeprazole (PriLOSEC) 20 mg capsule Take 1 capsule (20 mg total) by mouth daily 01/24/20 23 Active nicotine (NICODERM CQ) 21 mg nicotine 21 mg/24 hr daily transdermal patch Active metFORMIN XR (GLUCOPHAGE XR) 500 mg 24 hr tablet Take 1 tablet (500 mg total) by mouth daily with breakfast 11/28/19 Active LORazepam (ATIVAN) 0.5 mg tabletIndications: anxiety Take 1 tablet (0.5 mg total) by mouth every 8 (eight) hours as needed for anxiety for up to 3 days 9 tablet 10/23/19 Active Additional Information Patient not taking.Reported on 11/27/2023 nicotine polacrilex (NICORETTE) 2 mg gum Chew 1 each (2 mg total) as needed for smoking cessation 100 each 1 10/23/19 Active Additional Information Patient not taking.Reported on 11/27/2023 albuterol HFA (PROVENTIL HFA,VENTOLIN HFA,PROAIR HFA) 90 mcg/actuation inhaler Inhale 2 puffs every 6 (six) hours as needed for wheezing 1 each 10/23/19 24 Active atorvastatin (LIPITOR) 40 mg tablet Take 1 tablet (40 mg total) by mouth daily 30 tablet 11 10/24/19 24 Active Additional Information Patient not taking.Reported on 11/27/2023 evolocumab (REPATHA) syringe syringeIndications :hypercholesterole jenna,With intolerance to statins Inject 1 mL (140 mg total) under the skin every 14 (fourteen) days 2 mL 11 11/05/19 24 Active Additional Information Patient not taking.Reported on 11/27/2023 Active Problems Patient Care Coordination No te Formatting of this note migh t be different from the original. Thyroid nodule Problem Noted Date Diagnosed Date Hypertension 11/24/2023 Chest pain 10/23/2023 Pneumonia of both lower lobes due to infectious organism 10/21/2023 Hyperlipidemia 10/21/2023 Palpitations 10/21/2023 Sepsis, due to unspecified o rganism, unspecified whether acute organ dysfunction present 10/20/2023 Thyroid nodule 09/26/2022 COPD with acute exacerbation 02/21/2022 Irritable bowel syndrome with diarrhea T2DM (type 2 diabetes mellitus) 02/21/2022 Mixed simple and mucopurulent chronic bronchitis 09/21/2021 Recurrent ventral hernia 06/01/2019 Gastroesophageal reflux disease without esophagi tis 11/30/2015 Impingement syndrome of shoulder region 10/19/19 16 Arthralgia of shoulder 10/18/2015 Resolved Problems Problem Noted Date Diagnosed Date Resolved Date SIRS (systemic inflammatory response syndrome) 10/21/2023 10/21/2023 Immunizations Immunization Administration Dates Next Due Influenza, Trivalent, Preservative Free, Intramu scular 08/15/2008 Social History Tobacco Use Types Packs/Day Years Used Date Smoking Tobacco: Former Cigarettes Smokeless Tobacco: Never Tobacco Cessation:Counseling Given: Not Answered Alcohol Use Standard Drinks/Week Comments Yes 0 (1 standard drink = 0.6 oz pur e alcohol) [facility] Utilities Answer Date Recorded In the past 12 months has [employer], gas, oil, or water [employer] threatened to shut off services in your home? No 10/21/2023 Social Connection and Isolat ion Panel [NHANES] Answer Date Recorded In a typical week, how many times do you talk on the phone with family, friends, or neighbors? More than three times a week 10/21/2023 How often do you get togethe r with friends or relatives? More than three times a week 10/21/2023 How often do you attend chur ch or yarsanism services? Never 10/21/2023 Do you belong to any clubs o r organizations such as adventist groups, unions, fraternal or athletic groups, or school groups? No 10/21/2023 How often do you attend meet ings of the clubs or organizations you belong to? Never 10/21/2023 Are you , , di vorced, , never , or living with a partner? 10/21/2023 Overall Financial Resource Strain (CARDIA) Answe r Date Recorded How hard is it for you to pa y for the very basics like food, housing, medical care, and heating? Not hard at all 10/21/2023 Hunger Vital Sign Answer Date Recorded Within the past 12 months, y ou worried that your food would run out before you got the money to buy more. Never true 10/21/19 24 Within the past 12 months, t he food you bought just didn't last and you didn't have money to get more. Never true 10/21/2023 PRAPARE - Transportation Answer Date Re corded In the past 12 months, has l ack of transportation kept you from medical appointments or from getting medications? No 02/2024 In the past 12 months, has l ack of transportation kept you from meetings, work, or from getting things needed for daily living? No 10/21/2023 Housing Stability Vital Sign Answer Papi e Recorded In the last 12 months, was t here a time when you were not able to pay the mortgage or rent on time? No 10/21/2023 In the last 12 months, how many places have you lived? 1 10/21/2023 In the last 12 months, was t here a time when you did not have a steady place to sleep or slept in a usp (including now)? No 10/21/2023 Personal Safety Answer Date Recorded Have you ever been in or are you currently in a harmful physical or emotional relationship or is someone making you feel afraid or unsafe? Denies 10/20/2023 Education Answer Date Recorded What is the highest level of school you have completed or the highest degree you have received? 10th grade 10/21/2023 Comments No Sex and Gender Information Value Date Recorded Sex Assigned at Not on file Legal Sex Female 1:02 AM COST ESTIMATING MANAGER Gender Identity Not on file Sexual Orientation Not on file Last Filed Vital Signs Vital Sign Reading Time Taken Comments Blood Pressure 101/70 11/27/2023 9:48 AM CDT Pulse 70 11/27/2023 9:48 AM CDT Temperature 36.1 C (96.9 F) 10/23/2023 7:35 AM COST ESTIMATING MANAGER Respiratory Rate 18 11/27/2023 9:48 AM CDT Oxygen Saturation 94% 10/23/2023 8:34 AM COST ESTIMATING MANAGER Inhaled Oxygen Concentration - - Weight 74.4 kg (164 lb) 11/27/2023 9:48 AM CDT Height 152.4 cm (5') 11/27/2023 9:48 AM CDT Body Mass Index 32.03 11/27/2023 9:48 AM CDT Plan of Treatment Not on file Procedures Procedure Name Priority Date/Time Associated Diagnosis Comments EGFR Routine 10/23/2023 3:15 AM COST ESTIMATING MANAGER LIPID PANEL Routine 10/21/2023 3:19 AM COST ESTIMATING MANAGER from Last 3 Months or Most Recently Relevant to Health Maintenance Results * eGFR (10/23/2023 3:15 AM COST ESTIMATING MANAGER) eGFR 87 mL/min/1. 73 m2 [facility] P[facility] ([place]) Comment: Interpretive Data Reference Interval Normal >/= 90 mL/min/1.73m2 Mildly decreased* 60 - 89 mL/min/1.73m2 Mildly to moderately decreased 45 - 59 mL/min/1.73m2 Moderately to severely decreased 30 - 44 mL/min/1.73m2 Severely decreased 15 - 29 mL/min/1.73m2 Kidney Failure < 15 mL/min/1.73m2 *Relative to young adult level Estimated glomerular filtration rate is determined by the 2020 CKD-EPI equation recommended by the National Kidney Foundation (A Unifying Approach to GFR Estimation: Recommendations of the NKF-ASK Task Force on Reassessing the Inclusion of Race in Diagnosing Kidney Disease, JASN 202). The CKD-EPI equation should not be used for patients with unstable renal function and has not been validated in children and those over 70. Current interpretive data was last reviewed 2021. Blood 10/23/2023 3:15 AM COST ESTIMATING MANAGER 10/23/2023 4:54 AM COST ESTIMATING MANAGER us Ashia Balderas MD LAB BLOOD ORDERABLES Fi nal Result [facility]IG[facility] P[facility] ([place]) 1 [facility] Department [place] [address] * (ABNORMAL) Lipid panel (10/21/2023 3:19 AM COST ESTIMATING MANAGER) Cholesterol 227(H) 30 - 199 mg/dL [facility]IG[facility] P[facility] ([place]) Comment: Interpretive Data Ages < or = 19 years Acceptable: <170 mg/dL Borderline high: 170-199 mg/dL High: >or= 200 mg/dL Ages > or = 20 years Desirable: <200 mg/dL Borderline high: 200-239 mg/dL High: >or= 240 mg/dL Literature References: 1. Expert Panel on Integrated Guidelines for Cardiovascular Health and Risk Reduction in Children and Adolescents. Pediatrics 2011;128:S213 2. NCEP Expert Panel. Circulation 2004;110:227 Current Interpretive Data was last revised on 2018. Triglycerides 126 <=149 mg/dL [facility] PEREYRA ([place]) Comment: Interpretive Data Ages < or = 9 years Acceptable: <75 mg/dL Borderline high: 75-99 mg/dL High: >or= 100 mg/dL Ages 10 to 20 years Acceptable: <90 mg/dL Borderline high: 90-129 mg/dL High: >or= 130 mg/dL Ages > or = 20 years Desirable: <150 mg/dL Borderline high: 150-199 mg/dL High: 200-499 mg/dL Very high: >or= 499 mg/dL Literature References: 1. Expert Panel on Integrated Guidelines for Cardiovascular Health and Risk Reduction in Children and Adolescents. Pediatrics 2011;128:S213 2. NCEP Expert Panel. Circulation 2004;110:227 Current Interpretive Data was last revised on 2018. HDL 52 >=40 mg/dL [facility] PERE[facility] ([place]) Comment: Interpretive Data Ages < or = 19 years Acceptable: >45 mg/dL Borderline low: 40-45 mg/dL Low: <40 mg/dL Ages > or = 20 years Desirable: >or= 60 mg/dL Low: <40 mg/dL Literature References: 1. Expert Panel on Integrated Guidelines for Cardiovascular Health and Risk Reduction in Children and Adolescents. Pediatrics 2011;128:S213 2. NCEP Expert Panel. Circulation 2004;110:227 Current Interpretive Data was last revised on 2018. LDL, calculated 150(H) <=129 mg/dL [facility] PERE[facility] ([place]) Comment: Interpretive Data Ages < or = 19 years Acceptable: <110 mg/dL Borderline high: 110-129 mg/dL High: >or= 130 mg/dL Ages > or = 20 years Optimal: <100 mg/dL Near optimal: 100-129 mg/dL Borderline high: 130-159 mg/dL High: >160 mg/dL Literature References: 1. Expert Panel on Integrated Guidelines for Cardiovascular Health and Risk Reduction in Children and Adolescents. Pediatrics 2011;128:S213 2. NCEP Expert Panel. Circulation 2004;110:227 Current Interpretive Data was last revised on 2018. Non-HDL Cholesterol 175 mg/dL [facility] ([place]) Comment: Interpretive Data Ages < or = 19 years Acceptable: <120 mg/dL Borderline high: 120-144 mg/dL High: >145 mg/dL Ages > or = 20 years When triglycerides are >200 mg/dL, Non-HDL cholesterol is a secondary target of therapy with treatment goals that are 30 mg/dL greater than the LDL cholesterol target. Literature References: 1. Expert Panel on Integrated Guidelines for Cardiovascular Health and Risk Reduction in Children and Adolescents. Pediatrics 2011;128:S213 2. NCEP Expert Panel. Circulation 2004;110:227 Current Interpretive Data was last revised on 2018. Chol/HDL ratio 4 PRISCILA PEREYRA ([place]) Blood 10/21/2023 3:19 AM COST ESTIMATING MANAGER 10/21/2023 7:55 AM COST ESTIMATING MANAGER Baldemar Smith MD LAB BLOOD ORDERABLES Final Re sult [facility] ([place]) 1 [facility] [place] [address] from Last 3 Months or Most Recently Relevant to Health Maintenance Insurance [facility] Advance Directives For more information, please contact: [phone] * Full Code (Latest Code Status on File) Date Activated Date Inactivated Comments 10/20/2023 7:39 PM 10/23/2023 3:17 PM Care Teams Cash Control Specialist Relationship Specialty Start Date End Date Diamond Coffman NP [address] [facility] [place] [address] PCP - General Nurse Practitioner 01/28/23 Dominique Bernstein MD [address] [facility] [address] [place] [address] Resident Family Medicine 10/23/23 Carloz Padilla NP [address] [facility] [address] [place] [address] Nurse Practitioner Cardiovascular Disease 10/23/23
--- OUTSIDE RECORDS SUMMARY | 2024-11-23 16:25 | XMS_ITS | Clinical Summary ---
Author Organization [facility] Address [address] [place] [id number] Care Team Providers Care Health Advocate Name Role Phone Augustus Diamond Hull MERCHANT SEAMAN Primary Care Provider + Dominique Bernstein MD Unavailable [phone] Carloz Padilla NP Unavailable [phone] Allergies Active Allergy Reactions Criticality Noted Date Comments Aspirin Palpitations Low 02/21/2022 Patient states she is now taking aspirin every for COVID Hydrocodone-Acetaminophe n Other (See comments) Low 02/21/2022 Oxycodone Oxycodone-Acetaminophen Hallucinations Medium 07/01/20 16 Pseudoephedrine Unknown Hjbhezg-Oqc-Obl Reductase Inhibitors Muscle pain High 10/22/2023 Could [...] Influenza, Trivalent, Preservative Free, Intramu scular 08/15/2008 Surgical History Surgery Date Site/Laterality Comments CHOLECYSTECTOMY gallbladder removed ROTATOR CUFF REPAIR Rotator cuff repair CARPAL TUNNEL RELEASE Carpal tunnel release HERNIA REPAIR Hernia repair APPENDECTOMY Appendectomy THYROIDECTOMY Thyroidectomy TONSILLECTOMY Tonsillectomy ROTATOR CUFF REPAIR Left Rotator cuff repair Medical History Medical History Date Comments Arthritis Arthritis; Comme nts: [facility] 04/10/2016 - Hx Other Medical Hysterectomy pl anned; Comments: [facility] 04/10/2016 - Anxiety Diverticulitis Hypercholesteremia Gastric reflux Emphysema of lung (HCC) Thyroid disease Family History Medical History Relation Name Comments Alcohol abuse Other 1 Cervical cancer Other 1 Cancer, cerv ical; Diabetes Other 1 Heart disease Other 1 Diabetes type II Other 2 Diabetes me llitus type 2; Hyperlipidemia Other 3 High choleste rol; Heart failure Other 4 Congestive hea rt failure; Hypertension Other 5 Hypertension; Osteoporosis Other 6 Osteoporosis; Stroke Other 7 Stroke; Thyroid disease Other 8 Thyroid diso rder; Relation Name Status Comments Other 1 Other 2 Other 3 Other 4 Other 5 Other 6 Other 7 Other 8 Social History Tobacco Use Types Packs/Day Years Used Date Smoking Tobacco: Former Cigarettes Smokeless Tobacco: Never Tobacco Cessation:Counseling Given: Not Answered Alcohol Use Standard Drinks/Week Comments Yes 0 (1 standard drink = 0.6 oz pur e alcohol) [facility] Utilities Answer Date Recorded In the past 12 months has [facility] [employer], gas, oil, or water [employer] threatened to shut off services in your [...] often do you attend chur ch or yazdanism services? Never 10/21/2023 Do you belong to any clubs o r organizations such as baptism groups, unions, fraternal or athletic groups, or [...] place to sleep or slept in a chcf (including now)? No 10/21/2023 Personal Safety Answer [...] on file Legal Sex Female 1:02 AM ORTHOTIC TECHNICIAN Gender Identity Not on file Sexual Orientation Not on file Obstetrics History Last Filed Vital Signs Vital Sign Reading Time Taken Comments Blood Pressure 101/70 11/27/2023 9:48 AM CDT Pulse 70 11/27/2023 9:48 AM CDT Temperature 36.1 C (96.9 F) 10/23/2023 7:35 AM ORTHOTIC TECHNICIAN Respiratory Rate 18 11/27/2023 9:48 AM CDT Oxygen Saturation 94% 10/23/2023 8:34 AM ORTHOTIC TECHNICIAN Inhaled Oxygen Concentration - - Weight 74.4 kg (164 lb) 11/27/2023 9:48 AM CDT Height 152.4 cm (5') 11/27/2023 9:48 AM CDT Body Mass Index 32.03 11/27/2023 9:48 AM CDT Plan of Treatment Health Maintenance Due Date Last Done Comments Albumin Creatinine Ratio, Urine 1966 Colon Cancer Screening-Colonoscopy 1966 Depression Screening 1966 Hepatitis C Screening 1966 Dilated Eye Exam 1966 Foot Exam 1966 Hepatitis B Screening 1984 Regular Well Visit/Exam 18-64 1984 Pneumococcal vaccine <65 (2 of 2 - PCV) 06/24/2016 06/24/2015 Zoster Vaccine (1 of 2) 2016 Hemoglobin A1C 12/19/2022 06/20/2022 Breast Cancer Screening-Mammogram 02/04/2024 02/03/2023, 02/17/2021, 02/17/2021, Additional history exists Influenza Vaccine (#1) 2024 7, 05/23/2016, 05/22/2012, Additional history exists Lipid Panel 10/21/2024 10/21/2023, 06/20/2022 eGFR 10/23/2024 10/23/2023, 02/03/2024, 10/21/2023, Additional history exists DTaP/Tdap/Td Vaccine (3 - Td or Tdap) 07/15/2029 07/15/2019, 09/15/2008 Procedures Procedure Name Priority Date/Time Associated Diagnosis Comments EGFR Routine 10/23/2023 3:15 AM ORTHOTIC TECHNICIAN LIPID PANEL Routine 10/21/2023 3:19 AM ORTHOTIC TECHNICIAN from Last 3 Months or Most Recently Relevant to Health Maintenance Results * eGFR (10/23/2023 3:15 AM ORTHOTIC TECHNICIAN) eGFR 87 mL/min/1. 73 m2 [facility] ([place]) Comment: Interpretive Data Reference Interval Normal >/= [...] of Race in Diagnosing Kidney Disease, JASN 2020). The CKD-EPI equation should not be used for patients with unstable renal function and has not been validated in children and those over 70. Current interpretive data was last reviewed 2021. Blood 10/23/2023 3:15 AM ORTHOTIC TECHNICIAN 10/23/2023 4:54 AM ORTHOTIC TECHNICIAN us Ashia Balderas MD LAB BLOOD ORDERABLES Fi nal Result [facility] ([place]) 1 [facility] Department [place] [address] * (ABNORMAL) Lipid panel (10/21/2023 3:19 AM ORTHOTIC TECHNICIAN) Cholesterol 227(H) 30 - 199 mg/dL PAIGE [...] 2018. Non-HDL Cholesterol 175 mg/dL [facility] PEREYRA ([place]) Comment: Interpretive Data Ages < or = [...] on 2018. Chol/HDL ratio 4 PRISCILA PEREYRA ([place]) Blood 10/21/2023 3:19 AM ORTHOTIC TECHNICIAN 10/21/2023 7:55 AM ORTHOTIC TECHNICIAN Baldemar Smith MD LAB BLOOD ORDERABLES Final Re sult [facility] ([place]) 1 [facility] Department [place] [address] from Last 3 Months or Most Recently Relevant to Health Maintenance Insurance [facility] AETNA [facility] AETNA [facility] Advance Directives For more information, please contact: [phone] * Full Code (Latest Code Status on File) Date Activated Date Inactivated Comments 10/20/2023 7:39 PM 10/23/2023 3:17 PM Care Teams Health Advocate Relationship Specialty Start Date End Date Diamond Coffman NP [address] [facility] [place] [address] PCP - General Nurse Practitioner 01/28/23 Dominique Bernstein MD [address] [place] [address] [address] [place] [address] Resident Family Medicine 10/23/23 Carloz Padilla NP [address] [place] [address] [address] [place] [address] Nurse Practitioner Cardiovascular Disease 10/23/23
--- OUTSIDE RECORDS SUMMARY | 2024-11-23 16:25 | XMS_ITS | Encounter Summary ---
Author Organization [facility] Address [address] [place] [address] Phone Care Team Providers Care Heater Helper Forge Name Role Phone Venkat Carrion MD Primary Care Provider [phone] Soni Dougherty APRN Primary Care Provider [phone] Diamond Coffman APRN, ACDS BLOCK 1 OPERATOR Primary Care Pro vider Jagdish Hightower MD Unavailable Dominique Bernstein MD Primary Care Provider [phone] Reason for Visit * Reason Comments Medication Refill Encounter Details Date Type Department Care Team (Late st Contact Info) Description 07/08/2020 Refill [facility]UL[facility] [address] [facility] [place] [address] Jagdish Hightower MD [address] [place] [address] Medication Refill Social History Tobacco [...] have Coronavirus / COVID-19? No / Unsure 07/02/2020 10:15 AM CDT documented as of this encounter Plan of Treatment Upcoming Encounters Date Type Department Care Team (Late st Contact Info) Description 12/03/2024 10:45 AM CDT Office Visit [facility] - Pulmonology & Sleep Medicine [facility] [address] [place] [address] Jagdish Hightower MD [address] [place] [address] documented as of this encounter Visit Diagnoses Not on filedocumented in this encounter Additional Health Concerns Infection Onset Date Last Indicated Resolved Time COVID - 19 08/22/2020 08/22/2020 08/26/2020 6:00 PM RED CAP COVID - 19 05/25/2021 05/25/2021 06/14/2021 12:1 6 AM CDT Assessment Noted Time PHQ-9 Depression Total Score: 0 09/29/19 20 1:04 PM RED CAP documented as of this encounter Care Teams Heater Helper Forge Relationship Specialty Start Date End Date Venkat Carrion MD [address] [address] PCP - General Family Medicine 07/27/15 02/20/22 Soni Dougherty APRN [address] [address] PCP - General Advanced Practice Nurse 02/21/22 09/18/22 Diamond Coffman APRN, ACDS BLOCK 1 OPERATOR [address] [place] [address] PCP - General Certified Nurse Practitioner 09/19/22 01/21/24 Dominique Bernstein MD [address] [place] [address] [address] PCP - General Family Medicine 01/22/24 Jagdish Hightower MD [address] [place] [address] Consulting Physician Pulmonary Disease 07/25/22 documented as of this encounter
--- OUTSIDE RECORDS SUMMARY | 2024-11-23 16:25 | XMS_ITS | Encounter Summary ---
Author Organization [facility] Address [address] [place] [address] Phone Care Team Providers Care Special Education Math Teacher Name Role Phone Diamond Coffman APRN, CNP Primary Care Pro vider Jagdish Hightower MD Unavailable Dominique Bernstein MD Primary Care Provider [phone] Reason for Visit * Reason Comments Medication Refill Encounter Details Date Type Department Care Team (Late st Contact Info) Description 11/18/2022 Refill [facility] - Pulmonology & Sleep Medicine [facility] [address] [place] [address] Jagdish Hightower MD [address] [place] [address] Medication Refill Social History Tobacco [...] Exposure Response Date Recorded In the last 10 days, have yo u been in contact with someone who was confirmed or suspected to have Coronavirus/COVID-19? No / Unsure 10/29/2022 10:04 AM COOK SPECIALTY documented as of this encounter Miscellaneous Notes * Telephone Encounter - Yessica Kyle RN - 11/19/2022 9:01 AM [facility] SPECIALTY Medication refused due to duplicate request. Reviewed to ensure medication was already refilled at same pharmacy currently requesting refill. SPECIALTY documented in this encounter Plan of Treatment Upcoming Encounters Date Type Department Care Team (Late st Contact Info) Description 12/03/2024 10:45 AM CDT Office Visit [facility] - Pulmonology & Sleep Medicine - [place] [address] [place] [address] Jagdish Hightower MD [address] [place] [address] documented as of this encounter Visit Diagnoses Not on filedocumented in this encounter Additional Health Concerns Assessment Noted Time PHQ-9 Depression Total Score: 0 01/31/20 21 2:42 PM CDT documented as of this encounter Care Teams Special Education Math Teacher Relationship Specialty Start Date End Date Diaomnd Coffman APRN, WHEAT COMBINE DRIVER [address] [place] [address] PCP - General Certified Nurse Practitioner 09/19/22 01/21/24 Dominique Bernstein MD [address] [place] [address] [place] [address] PCP - General Family Medicine 01/22/24 Jagdish Hightower MD [address] [place] [address] Consulting Physician Pulmonary Disease 07/25/22 documented as of this encounter
--- OUTSIDE RECORDS SUMMARY | 2024-11-23 16:26 | XMS_ITS | Encounter Summary ---
Author Organization [facility] Address [address] [place] [address] Phone Care Team Providers Care Forklift Technician Name Role Phone Venkat Carrion MD Primary Care Provider [phone] Soni Dougherty APRN Primary Care Provider [phone] Diamond Coffman APRN, PRODUCT SALES ENGINEER Primary Care Pro vider Jagdish Hightower MD Unavailable Dominique Bernstein MD Primary Care Provider [phone] Reason for Visit * Reason Onset Date Comments Medication Refill 09/06/2020 Encounter Details Date Type Department Care Team (Late st Contact Info) Description 09/06/2020 Refill [facility] - Family Medicine [facility] [address] [place] [address] Venkat Carrion MD [address] [address] Medication Refill Social History Tobacco Use Types [...] have Coronavirus / COVID-19? No / Unsure 08/22/2020 1:34 PM CASE PICKER documented as of this encounter Plan of Treatment Upcoming Encounters Date Type Department Care Team (Late st Contact Info) Description 12/03/2024 10:45 AM CDT Office Visit [facility] - Pulmonology & Sleep Medicine [facility] [address] [place] [address] Jagdish Hightower MD [address] [place] [address] documented as of this encounter Visit Diagnoses Not on filedocumented in this encounter Additional Health Concerns Infection Onset Date Last Indicated Resolved Time COVID - 19 05/25/2021 05/25/2021 06/14/2021 12:1 6 AM CDT Assessment Noted Time PHQ-9 Depression Total Score: 0 09/29/19 20 1:04 PM CASE PICKER documented as of this encounter Care Teams Forklift Technician Relationship Specialty Start Date End Date Venkat Carrion MD [address]2 [facility] [place] [address] PCP - General Family Medicine 07/27/15 02/20/22 Soni Dougherty APRN [address]2 [facility] [place] [address] PCP - General Advanced Practice Nurse 02/21/22 09/18/22 Diamond Coffman APRN, PRODUCT SALES ENGINEER [address] [place] [address] PCP - General Certified Nurse Practitioner 09/19/22 01/21/24 Dominique Bernstein MD [address] [address] PCP - General Family Medicine 01/22/24 Jagdish Hightower MD [address] [place] [address] Consulting Physician Pulmonary Disease 07/25/22 documented as of this encounter
--- OUTSIDE RECORDS SUMMARY | 2024-11-23 16:26 | XMS_ITS | Encounter Summary ---
Author Organization [facility] Address [address] [place] [address] Phone Care Team Providers Care Consulting Project Director Name Role Phone Venkat Carrion MD Primary Care Provider [phone] Soni Dougherty APRN Primary Care Provider [phone] Diamond Coffman APRN, GENERAL LABOR Primary Care Pro vider Jagdish Hightower MD Unavailable Dominique Bernstein MD Primary Care Provider [phone] Reason for Visit * Reason Comments Medication Refill Encounter Details Date Type Department Care Team (Late st Contact Info) Description 01/20/2021 Refill [facility] - Pulmonology & Sleep Medicine [facility] [address] [place] [address] Jagdish Hightower MD [address] [place] [address] Medication Refill Social History Tobacco [...] have Coronavirus / COVID-19? No / Unsure 01/23/2021 3:39 PM CDT documented as of this encounter Plan of Treatment Upcoming Encounters Date Type Department Care Team (Late st Contact Info) Description 12/03/2024 10:45 AM CDT Office Visit [facility] - Pulmonology & Sleep Medicine [facility] [address] [place] [address] Jagdish Hightower MD [address] [place] [address] documented as of this encounter Visit Diagnoses Not on filedocumented in this encounter Additional Health Concerns Infection Onset Date Last Indicated Resolved Time COVID - 19 05/25/2021 05/25/2021 06/14/2021 12:1 6 AM CDT Assessment Noted Time PHQ-9 Depression Total Score: 0 09/29/19 20 1:04 PM COMMERCIAL CARPET INSTALLER documented as of this encounter Care Teams Consulting Project Director Relationship Specialty Start Date End Date Venkat Carrion MD [address]2 [facility] [place] [address] PCP - General Family Medicine 07/27/15 02/20/22 Soni Dougherty APRN [address] [facility] [place] [address] PCP - General Advanced Practice Nurse 02/21/22 09/18/22 Diamond Coffman APRN, GENERAL LABOR [address] [place] [address] PCP - General Certified Nurse Practitioner 09/19/22 01/21/24 Dominique Bernstein MD [address] [address] PCP - General Family Medicine 01/22/24 Jagdish Hightower MD [address] [place] [address] Consulting Physician Pulmonary Disease 07/25/22 documented as of this encounter
--- OUTSIDE RECORDS SUMMARY | 2024-11-23 16:26 | XMS_ITS | Encounter Summary ---
Author Organization [facility] Address [address] [place] [address] Phone Care Team Providers Care Wood Engraver Name Role Phone Venkat Carrion MD Primary Care Provider [phone] Soni Dougherty APRN Primary Care Provider [phone] Diamond Coffman APRN, DAM WORKER Primary Care Pro vider Jagdish Hightower MD Unavailable Dominique Bernstein MD Primary Care Provider Reason for Visit * Reason Comments Medication Refill Encounter Details Date Type Department Care Team (Late st Contact Info) Description 04/09/2021 Refill [facility] - Pulmonology & Sleep Medicine [facility] [address] [place] [address] Jagdish Hightower MD [address] [place] [address] Medication Refill Social History Tobacco Use Types Packs/Day Years Used Date Smoking Tobacco: Light Smoker Cigarettes 0.3 35 Started: 984; Last attempted to quit: 03/03/2016 Smokeless Tobacco: Never Comments:down to 1-2 cigaret gabriele today Alcohol Use Standard Drinks/Week Comments Yes 0 (1 standard drink = 0.6 oz pur e alcohol) OCCASSIONALLY SOCIALLY PHQ-2 Answer Date Recorded Total Score - Questions 1-9 0 01/13 Sexually Active Control Partners Comments Not Currently [...] have Coronavirus / COVID-19? No / Unsure 03/30/2021 8:52 AM CDT documented as of this encounter Plan of Treatment Upcoming Encounters Date Type Department Care Team (Late st Contact Info) Description 12/03/2024 10:45 AM CDT Office Visit [facility] - Pulmonology & Sleep Medicine [facility] [address] [place] [address] Jagdish Hightower MD [address] [place] [address] documented as of this encounter Visit Diagnoses Not on filedocumented in this encounter Additional Health Concerns Infection Onset Date Last Indicated Resolved Time COVID - 19 05/25/2021 05/25/2021 06/14/2021 12:1 6 AM CDT Assessment Noted Time PHQ-9 Depression Total Score: 0 01/31/20 21 2:42 PM CDT documented as of this encounter Care Teams Wood Engraver Relationship Specialty Start Date End Date Venkat Carrion MD #[address] [address] PCP - General Family Medicine 07/27/15 02/20/22 Soni Dougherty APRN #[address] [address] PCP - General Advanced Practice Nurse 02/21/22 09/18/22 Diamond Coffman APRN, DAM WORKER [address] [place] [address] PCP - General Certified Nurse Practitioner 09/19/22 01/21/24 Dominique Bernstein MD [address] [facility] [address] [place] [address] PCP - General Family Medicine 01/22/24 Jagdish Hightower MD [address] [place] [address] Consulting Physician Pulmonary Disease 07/25/22 documented as of this encounter
== END 2024-11-23 15:35 | disposition home or self-care (01) ==
PROVIDERS: Emergency Provider Registered Nurse
DX: J43.9 Emphysema, unspecified (principal); Z87.891 Personal history of nicotine dependence
CPT/HCPCS: 71046; 99213; G0463

== ENCOUNTER 2025-03-14 12:09 | Emergency (ER) | payer OTHER, SELFPAY ==
--- OUTSIDE RECORDS SUMMARY | 2025-03-14 12:11 | XMS_ITS | Encounter Summary ---
Author Organization [facility] Address [address] [place] [address] Phone Care Team Providers Care Hand Tapper Name Role Phone Diamond Coffman APRN, CNP Primary Care Pro vider Jagdish Hightower MD Unavailable Dominique Bernstein MD Primary Care Provider [phone] Reason for Visit * Reason Comments Medication Refill Encounter Details Date Type Department Care Team (Late st Contact Info) Description 11/18/2022 Refill [facility] - Pulmonology & Sleep Medicine [facility] [address] [place] [address] Jagdish Hightower MD [address] [place] [address] Medication Refill Social History Tobacco [...] Coronavirus/COVID-19? No / Unsure 10/29/2022 10:04 AM EDGE INKER documented as of this encounter Miscellaneous Notes * Telephone Encounter - Yessica Kyle RN - 11/19/2022 9:01 AM EDGE INKER Medication refused due to duplicate request. Reviewed to ensure medication was already refilled at same pharmacy currently requesting refill. INKER documented in this encounter Plan of Treatment Upcoming Encounters Date Type Department Care Team (Late st Contact Info) Description 06/10/2025 10:45 AM CDT Office Visit [facility] - Pulmonology & Sleep Medicine - [place] [address] [place] [address] Jagdish Hightower MD [address] [place] [address] documented as of this encounter Visit Diagnoses Not on filedocumented in this encounter Additional Health Concerns Assessment Noted Time PHQ-9 Depression Total Score: 0 01/31/20 21 2:42 PM CDT documented as of this encounter Care Teams Hand Tapper Relationship Specialty Start Date End Date Diamond Coffman APRN, CREDIT SPECIALIST [address] [place] [address] PCP - General Certified Nurse Practitioner 09/19/22 01/21/24 Dominique Bernstein MD [address] [place] [address] [place] [address] PCP - General Family Medicine 01/22/24 Jagdish Hightower MD [address] [place] [address] Consulting Physician Pulmonary Disease 07/25/22 documented as of this encounter
--- OUTSIDE RECORDS SUMMARY | 2025-03-14 12:11 | XMS_ITS | Clinical Summary ---
Author Organization [facility] Address [address] [place] [address] Phone Care Team Providers Care Electronic Components Assembler Name Role Phone Jagdish Hightower MD Unavailable Dominique Bernstein MD Primary Care Provider [phone] Allergies Active Allergy Reactions Criticality Noted Date [...] Nausea - 1st line. 15 Tablet 11/16/19 22 Active dicyclomine (BENTYL) 20 MG Tablet Take 1 Tablet by mouth every 6 hours as needed for Other. 120 Tablet 1 11/24/19 22 Active Additional Information Patient not taking.Reported on 05/17/2024 metFORMIN (GLUCOPHAGE-XR ) 500 MG TABLET SR 24 HR TAKE 1 TABLET BY MOUTH ONCE DAILY FOR 90 DAYS 11/28/19 22 Active atorvastatin (LIPITOR) 40 MG TabletIndicati ons:Hyperlipid emia Take 40 mg by mouth nightly. Indications: High Amount of Fats in the Blood Active Wixela Inhub 250-50 MCG/ACT AEROSOL POWDER, BREATH ACTIVATED INHALE 1 PUFF IN THE MORNING AND AT BEDTIME 60 Each 11/24/19 24 Active albuterol 108 (90 Base) MCG/ACT Aerosol Solution TAKE TWO (2) PUFFS BY INHALATION EVERY FOUR (4) HOURS NEEDED FOR WHEEZING. 18 g 2 02/09/20 25 Active albuterol (PROVENTIL, VENTOLIN) (2.5 MG/3ML) 0.083% Nebulizer Soln THREE (3) ML BY NEBULIZATION ROUTE EVERY FOUR (4) HOURS NEEDED FOR SHORTNESS OF BREATH. 360 mL 2 02/15/20 25 Active albuterol (PROVENTIL, VENTOLIN) (2.5 MG/3ML) 0.083% Nebulizer Soln 3 mL by Nebulization route every 4 hours as needed for Shortness of Breath. 360 mL 2 11/19/19 25 025 Discontinued Active Problems Problem Noted Date Diagnosed Date [...] Encounters Date Type Department Care Team Description 02/12/2025 Refill [facility] - Pulmonology & Sleep Medicine - [place] [address] [place] [address] Jagdish Hightower MD Medication Refill 02/07/2025 Refill [facility] - Pulmonology & Sleep Medicine - [place] [address] [place] [address] Jagdish Hightower MD Medication Refill 02/04/2025 Results Follow-Up [facility] - Pulmonology & Sleep Medicine - [place] [address] [place] [address] Jagdish Hightower MD Complete PFT W + W/O Bronchodilator 01/26/2025 3:49 PM CDT - 01/26/2025 11:59 PM CDT Hospital [facility] Mammography [address] [place] [address] Dominique Bernstein MD Discharge Disposition: Discharged to home or Selfcare 01/26/2025 2:27 PM CDT - 01/26/2025 3:48 PM CDT Hospital Encounter [facility] Respiratory Therapy [address] [place] [address] Jagdish Hightower MD Discharge Disposition: Discharged to home or Selfcare 01/26/2025 Travel 12/24/2024 Transcribe Orders [facility] Central Scheduling [address] [place] [address] Dominique Bernstein MD Visit for screening mammogram (Primary Dx) from Last 3 Months Immunizations Immunization Administration Dates Next Due DTAP VACCINE 09/15/2008 Influenza Vaccine greater than 3 yrs 05/22/2012, 08/15/2008 Influenza Vaccine, Quadrivalent, PF 08/20/2017,0 05/23/2016 Influenza, Seasonal, Injectable, Undefined 05/22 Influenza,Split Virus,Trivalent,Injectable,PF (Deferred: Other) Pneumococcal Vaccine Adult - 23 Valent 5 [...] Sign Reading Time Taken Comments Blood Pressure 140/98 12/03/2024 10:51 AM CDT Pulse 75 12/03/2024 10:51 AM CDT Temperature 36.3 C (97.3 F) 05/17/2024 11:56 AM CDT Respiratory Rate 19 06/22/2024 9:50 AM CDT Oxygen Saturation 98% 12/03/2024 10:51 AM CDT Inhaled Oxygen Concentration - - Weight 81.6 kg (180 lb) 12/03/2024 10:51 AM CDT Height 157.5 cm (5' 2) 12/03/2024 10:51 AM CDT Body Mass Index 32.92 12/03/2024 10:51 AM CDT Plan of Treatment Upcoming Encounters Date Type Department Care Team (Late st Contact Info) Description 06/10/2025 10:45 AM CDT Office Visit [facility] - Pulmonology & [facility] Medicine [facility] [address] [place] [address] Jagdish Hightower MD [address] [place] [address] Health Maintenance Due Date Last Done Comments Diabetes: Eye Exam 1966 Diabetes: Foot Exam 1966 Hepatitis B Immunization (1 of 3 - 19+ 3-dose series) 1985 Cologuard 2011 Pneumococcal Immunization (50+ years) (2 of 2 - PCV) 06/24/2016 06/24/2015 Zoster Immunization (1 of 2) 2016 Immunochemical Fecal Occult Blood 10/05/2018 10/05/2017 Colonoscopy 10/07/2022 10/07/2017 Colorectal Cancer Screening 10/07/2022 Diabetes: Hemoglobin A1c 12/19/2022 06/20/2022 SARS-COV-2 Immunization ( season) 2024 Diabetes: Nephropathy Screening 10/19/2024 10/19/2023, 11/16/2021, 08/22/2021, Additional history exists Influenza Immunization (Season Ended) 2025 08/20/2017, 05/23/2016, 05/22/2012, Additional history exists Mammogram 01/26/2026 01/26/2025, 0601/2021, 03/02/2018 Respiratory Syncytial Virus (RSV) Immunization (Adult) (1 - 1-dose 75+ series) 2041 Pneumococcal Immunization Combined Discontinued 06/24/2015 Hepatitis C Virus (HCV) Screening Completed 06/20/2022 DTaP/Tdap/Td Immunization Discontinued 2023, 07/15/2019, 09/15/2008 Human Papillomavirus (HPV) Immunization Aged Out No longer eligible based on patient's age to complete this topic Meningococcal Immunization (ACWY) Aged Out No longer eligible based on patient's age to complete this topic Rotavirus Immunization Aged Out No lo nger eligible based on patient's age to complete this topic Medical Devices Implanted Type Area Front Attendant Device Identifier Shelf Expiration Date Model / Serial / Lot Mesh Srg Ventralight St Sepra Echo Ps 4.5in Mfl Ltwt Abs Loprfl Strl Seprafilm Polyp Hydrogel [place] - [id number] Implanted:Qty: 1 on 06/04/2019 by Virgilio Ocampo MD at [facility] IMPLANT N/A: Abdomen [employer] 10/12/2020 [id number] / [id number] / [id number] System Fix 5mm Sorbafix 30 Abs Fastener Loprfl Hollow Core Atraumatic Blunt Tip Hernia Repair Lf - [id number] Implanted:Qty: 1 on 06/04/2019 by Virgilio Ocampo MD at [facility] IMPLANT N/A: Abdomen [employer] 07/12/2020 [id number] / [id number] / [id number] Procedures Procedure Name Priority Date/Time Associated Diagnosis Comments [facility] SCREENING BILATERAL DIGITAL W CAD W ALIYA Routine 01/26/2025 4:11 PM CDT Visit for screening mammogram COMPLETE PFT W + W/O BRONCHODILATOR Routine 01/26/2025 Centrilobular emphysema (HCC) CMP (COMPREHENSIVE METABOLIC PANEL) STAT 10/19/2023 12:37 PM SCRAP DEALER STOOL, OCCULT BLOOD, DIAGNOSTIC, VIA GUAIAC Routine 10/05/2017 7:49 AM SCRAP DEALER from Last 3 Months or Most Recently Relevant to Health Maintenance Results * [facility] SCREENING BILATERAL DIGITAL W CAD W ALIYA (01/26/2025 4:11 PM CDT) Anatomical Region Laterality Modality breast Bilateral Mammography 01/26/2025 4:09 PM CDT Narrative 01/28/2025 10:39 AM CDT - [facility] SCREENING BILATERAL DIGITAL W CAD W ALIYA BILATERAL DIGITAL SCREENING MAMMOGRAM 3D/2D WITH CAD WITH MEDIOLATERAL OBLIQUE CRANIOCAUDAL: 01/26/2025 The study was acquired using digital technology and interpreted from soft copy. Current study was also evaluated with ICAD version 7.2. 2D digital mammographic views, as well as 3D digital tomosynthesis were performed in the CC and MLO projections. CLINICAL: Routine screening. Patient has no complaints. She reports a 15 pound decrease in weight since last mammogram. No personal history of cancer. No family history of breast cancer. COMPARISONS: Comparison is made to exams dated: 02/17/2021, 03/02/2018, and 06/17/[address] [facility]. BREAST TISSUE:The breasts are almost entirely fatty. FINDINGS: No significant masses, calcifications, or other findings are seen in either breast. There has been no significant interval change. IMPRESSION: NEGATIVE There is no mammographic evidence of malignancy. A 1 year screening mammogram is recommended. A letter will be sent to the patient with these results. The patient will be entered into a reminder system with a target due date of 1 year for her next screening exam. Electronically signed by: Anne Diamond M.D. ll/penrad:01/27/2025 21:23:55 Fingerprint Expert(s): RT Brandon(R)(M), [facility] letter sent: Normal Exam Reading location: [place] Mammogram BI-RADS: Category 1: Negative Procedure Note Anne Diamond MD - 01/28/2025 - [facility] SCREENING BILATERAL DIGITAL W CAD W ALIYA BILATERAL DIGITAL SCREENING MAMMOGRAM 3D/2D WITH CAD WITH MEDIOLATERAL OBLIQUE CRANIOCAUDAL: 01/26/2025 The study was acquired using digital technology and interpreted from soft copy. Current study was also evaluated with ICAD version 7.2. 2D digital mammographic views, as well as 3D digital tomosynthesis were performed in the CC and MLO projections. CLINICAL: Routine screening. Patient has no complaints. She reports a 15 pound decrease in weight since last mammogram. No personal history of cancer. No family history of breast cancer. COMPARISONS: Comparison is made to exams dated: 02/17/2021, 03/02/2018, and 06/17/[address] [facility]. BREAST TISSUE:The breasts are almost entirely fatty. FINDINGS: No significant masses, calcifications, or other findings are seen in either breast. There has been no significant interval change. IMPRESSION: NEGATIVE There is no mammographic evidence of malignancy. A 1 year screening mammogram is recommended. A letter will be sent to the patient with these results. The patient will be entered into a reminder system with a target due date of 1 year for her next screening exam. Electronically signed by: Anne Diamond M.D. ll/penrad:01/27/2025 21:23:55 Fingerprint Expert(s): RT Brandon(R)(M), [facility] letter sent: Normal Exam Reading location: [place] Mammogram BI-RADS: Category 1: Negative Dominique Bernstein MD IMG MAMMO ORDERABLES Final Re sult * Complete PFT W + W/O Bronchodilator (01/26/2025) FVC 2.82 L FVC %Predicted 99 % FVC Post-Bronchodila tor 2.87 (L) FEV1 1.66 L FEV1 %Predicted 72 % FEV1 Post-Bronchodila tor 1.67 (L) FEV1/FVC 74 % FEF 25-75% 29 L/sec TLC 5.81 L TLC %Predicted 124 (Pleth) (L) RV 1.09 L RV %Predicted 151 (Pleth) (L) Airway Resistance 3.68 cmH2O/L/s DLCO 17.08 ml/min/mmH g DLCO %Predicted 78 (ml/min/mm Hg) Jagdish Hightower MD PFT ORDERABLES Final Result * CMP (Comprehensive Metabolic Panel) (10/19/2023 12:37 PM SCRAP DEALER) SODIUM 140 136 - 145 mmol/L 10/19/2023 1:11 PM SCRAP DEALER [facility] POTASSIUM 4.8 3.5 - 5.1 mmol/L 10/19/2023 1:11 PM SCRAP DEALER [facility] CHLORIDE 103 98 - 107 mmol/L 10/19/2023 1:[address] [facility] CO2, VENOUS 29 22 - 30 mmol/L 10/19/2023 1:[address] [facility] ANION GAP 12.8 <18.0 mmol/L 10/19/2023 1:[address] [facility] GLUCOSE 94 70 - 99 mg/dL 10/19/2023 1:[address] [facility] BUN 13 10 - 20 mg/dL 10/19/2023 1:[address] [facility] CREATININE, BLOOD 0.82 0.60 - 1.00 mg/dL 10/19/2023 1:[address] [facility] BUN/CREATININE RATIO 16 12 - 20 ratio 10/19/2023 1:[address] [facility] TOTAL PROTEIN 7.3 6.3 - 8.2 g/dL 10/19/2023 1:[address] [facility] ALBUMIN 4.3 3.5 - 5.0 g/dL 10/19/2023 1:[address] [facility] A/G RATIO 1.4 1.0 - 2.2 10/19/2023 1:[address] [facility] CALCIUM 9.4 8.7 - 10.5 mg/dL 10/19/2023 1:[address] [facility] T BILI 0.5 0.2 - 1.2 mg/dL 10/19/2023 1:[address] [facility] SGOT (AST) 13 5 - 34 U/L 10/19/2023 1:[address] [facility] SGPT (ALT) 14 0 - 55 U/L 10/19/2023 1:[address] [facility] ALKALINE PHOSPHATASE 65 40 - 150 U/L 10/19/2023 1:[address] [facility] GFR, ESTIMATED >60 >=60 10/19/2023 1:[address] [facility] Comment: Creatinine Clearance is the preferred criteria for selecting drug dose adjustments in renally impaired patients. The GFR is provided as additional pertinent clinical information. GFR is reported in mL/min/1.73 sq m. Calculation based on the Chronic Kidney Disease Epidemiology Collaboration (CKD- EPI) equation refit without adjustment for race. GFR, EST. >60 >=60 024 1:[address] [facility] GFR, EST. NONAFRICAN >60 >=60 10/19/2023 1:[address] [facility] Blood Venipuncture / Unknown 10/19/2023 12:37 PM SCRAP DEALER 10/19/2023 12:41 PM SCRAP DEALER Loree Light Page PAC CHEMISTRY ORDERABLES Final R esult Performing Organization Address City/[facility]/ZIP Co de Phone Number [facility] [address] [place] [address] * Stool, Occult Blood, Diagnostic (10/05/2017 7:49 AM SCRAP DEALER) OCCULT BLOOD DIAG Negative Negative 10/05/2017 9:53 AM SCRAP DEALER [facility] Stool specimen (specimen) STOOL SPECIMEN / Unknown Non-Phlebotomy Collection / Unknown 10/05/2017 7:49 AM SCRAP DEALER 10/05/2017 9:45 AM SCRAP DEALER Ankush Luevano MD BODY FLUIDS & STOOLS ORD ERABLES Final Result Performing Organization Address [facility] Co de Phone Number [facility] [address] [place] [address] from Last 3 Months or Most Recently Relevant to Health Maintenance Insurance [address] [address] MEDICAID [employer] Advance Directives Documents on File Type Date Recorded Patient Teacher Vocal Expl anation Power of Sergeant At Arms for Health Care 10/06/2017 9:51 AM POA-HC [...] measures to stabilize the patient. Care Teams Electronic Components Assembler Relationship Specialty Start Date End Date Dominique Bernstein MD [address] [place] [address] PCP - General Family Medicine 01/22/24 Jagdish Hightower MD [address] [place] [address] Consulting Physician Pulmonary Disease 07/25/22
--- OUTSIDE RECORDS SUMMARY | 2025-03-14 12:11 | XMS_ITS | Encounter Summary ---
Author Organization [facility] Address [address] [place] [address] Phone Care Team Providers Care Supervisor Fish Bait Processing Name Role Phone Diamond Coffman APRN, CNP Primary Care Pro vider Jagdish Hightower MD Unavailable Dominique Bernstein MD Primary Care Provider [phone] Reason for Visit * Reason Comments Medication Refill Encounter Details Date Type Department Care Team (Late st Contact Info) Description 10/21/2022 Refill [facility] - Pulmonology & Sleep Medicine [facility] [address] [place] [address] Jagdish Hightower MD [address] [place] [address] Medication Refill Social History Tobacco [...] Medical Group - Pulmonology & Sleep Medicine [facility] #2 [place] [address] Jagdish Hightower MD [address] [place] [address] documented as of this encounter Visit Diagnoses Not on filedocumented in this encounter Additional Health Concerns Assessment Noted Time PHQ-9 Depression Total Score: 0 01/31/20 21 2:42 PM CDT documented as of this encounter Care Teams Supervisor Fish Bait Processing Relationship Specialty Start Date End Date Diamond Coffman APRN, PLUGGER MAN [address] [place] [address] PCP - General Certified Nurse Practitioner 09/19/22 01/21/24 Dominique Bernstein MD [address] [place] [address] [place] [address] PCP - General Family Medicine 01/22/24 Jagdish Hightower MD [address] [place] [address] Consulting Physician Pulmonary Disease 07/25/22 documented as of this encounter
--- OUTSIDE RECORDS SUMMARY | 2025-03-14 12:11 | XMS_ITS | Encounter Summary ---
Author Organization [facility] Address [address] [place] [address] Phone Care Team Providers Care Armature Varnisher Name Role Phone Jagdish Hightower MD Unavailable Dominique Bernstein MD Primary Care Provider [phone] Encounter Details Date Type Department Care Team (Latest Contact Info) Description 02/04/2025 Results Follow-Up [facility] - Pulmonology & Sleep Medicine - [employer] [address] [place] [address] Jagdish Hightower MD [address] [place] [address] Complete PFT W + W/O Bronchodilator Social History Tobacco Use Types Packs/Day Years [...] Group - Pulmonology & Sleep Medicine [facility] #[address] [place] [address] Jagdish Hightower MD [address] [place] [address] documented as of this encounter Visit Diagnoses Not on filedocumented in this encounter Additional Health Concerns Assessment Noted Time PHQ-9 Depression Total Score: 0 01/31/20 21 2:42 PM CDT documented as of this encounter Care Teams Armature Varnisher Relationship Specialty Start Date End Date Dominique Brenstein MD [address] [place] [address] [place] [address] PCP - General Family Medicine 01/22/24 Jagdish Hightower MD [address] [place] [address] Consulting Physician Pulmonary Disease 07/25/22 documented as of this encounter
--- OUTSIDE RECORDS SUMMARY | 2025-03-14 12:11 | XMS_ITS | Encounter Summary ---
Author Organization [facility] Address [address] [place] [address] Phone Care Team Providers Care Clinical Outcomes Manager Name Role Phone Diamond Coffman APRN, CNP Primary Care Pro vider Jagdish Hightower MD Unavailable Dominique Bernstein MD Primary Care Provider [phone] Reason for Visit * Reason Comments Medication Refill Encounter Details Date Type Department Care Team (Late st Contact Info) Description 11/24/2023 Refill [facility] - Pulmonology & Sleep Medicine [facility] #2 [place] [address] Zainab Hawkins APRN, BRENDA [address] [address] Medication Refill Social History Tobacco Use Types [...] Jagdish Hightower MD [facility] [address] 07/31/23 Office Visit Jagdish Hightower MD [facility] [address] 05/05/23 Office Visit Jagdish Hightower MD [facility] [address] 01/30/23 Office Visit Jagdish Hightower MD [facility] [address] Showing recent visits within past 365 days and meeting all other requirements Future Appointments Date Type Provider Dept 01/30/24 Appointment Jagdish Hightower MD [facility] [address] Showing future appointments within next 90 days and meeting all other requirements Passed - Active short-acting beta agonist prescription documented in this encounter Plan of Treatment Upcoming Encounters Date Type Department Care Team (Late st Contact Info) Description 06/10/2025 10:45 AM CDT [facility] Visit [facility] - [facility]monology & [facility] Medicine - [place] [address] [place] [address] Jagdish Hightower MD [address] [place] [address] documented as of this encounter Visit Diagnoses Not on filedocumented in this encounter Additional Health Concerns Assessment Noted Time PHQ-9 Depression Total Score: 0 01/31/20 21 2:42 PM CDT documented as of this encounter Care Teams Clinical Outcomes Manager Relationship Specialty Start Date End Date Diamond Coffman APRN, DAMPER WORKER [address] [place] [address] PCP - General Certified Nurse Practitioner 09/19/22 01/21/24 Dominique Bernstein MD [address] [facility] [place] [address] [place] [address] PCP - General Family Medicine 01/22/24 Jagdish Hightower MD [address] [place] [address] Consulting Physician Pulmonary Disease 07/25/22 documented as of this encounter
--- OUTSIDE RECORDS SUMMARY | 2025-03-14 12:11 | XMS_ITS | Encounter Summary ---
Author Organization [facility] Address [address] [place] [address] Phone Care Team Providers Care Adjunct History Instructor Name Role Phone Venkat Carrion MD Primary Care Provider [phone] Soni Dougherty APRN Primary Care Provider [phone] Diamond Coffman APRN, PAGE TECHNICIAN Primary Care Pro vider Jagdish Hightower MD Unavailable Dominique Bernstein MD Primary Care Provider [phone] Reason for Visit * Reason Comments Medication Refill Encounter Details Date Type Department Care Team (Late st Contact Info) Description 07/08/2020 Refill [facility] P[facility] #1 [facility] [place] [address] Jagdish Hightower MD [address] [place] [address] Medication Refill Social History Tobacco [...] Medical Group - Pulmonology & Sleep Medicine [facility] #2 [place] [address] Jagdish Hightower MD [address] [place] [address] documented as of this encounter Visit Diagnoses Not on filedocumented in this encounter Additional Health Concerns Infection Onset Date Last Indicated Resolved Time COVID - 19 08/22/2020 08/22/2020 08/26/2020 6:00 PM BUSINESS EMPLOYMENT SPECIALIST COVID - 19 05/25/2021 05/25/2021 06/14/2021 12:1 6 AM CDT Assessment Noted Time PHQ-9 Depression Total Score: 0 09/29/19 20 1:04 PM BUSINESS EMPLOYMENT SPECIALIST documented as of this encounter Care Teams Adjunct History Instructor Relationship Specialty Start Date End Date Venkat Carrion MD [address] [address] PCP - General Family Medicine 07/27/15 02/20/22 Soni Dougherty APRN [address] [address] PCP - General Advanced Practice Nurse 02/21/22 09/18/22 Diamond Coffman APRN, PAGE TECHNICIAN [address] [place] [address] PCP - General Certified Nurse Practitioner 09/19/22 01/21/24 Dominique Bernstein MD [address] [place] [address] [address] PCP - General Family Medicine 01/22/24 Jagdish Hightower MD [address] [place] [address] Consulting Physician Pulmonary Disease 07/25/22 documented as of this encounter
--- OUTSIDE RECORDS SUMMARY | 2025-03-14 12:11 | XMS_ITS | Encounter Summary ---
Author Organization [facility] Address [address] [place] [address] Phone Care Team Providers Care Syruper Name Role Phone Soni Dougherty APRN Primary Care Provider [phone] Diamond Coffman APRN, INSURANCE WRITER Primary Care Pro vider Jagdish Hightower MD Unavailable Dominique Bernstein MD Primary Care Provider [phone] Reason for Visit * Reason Comments Medication Refill Encounter Details Date Type Department Care Team (Late st Contact Info) Description 03/28/2022 Refill [facility] - Family Medicine [facility] #2 [place] [address] Venkat Carrion MD [address] [address] Medication Refill Social History Tobacco Use Types [...] - Pulmonology & Sleep Medicine [facility] #2 [place] [address] Jagdish Hightower MD [address] [place] [address] documented as of this encounter Visit Diagnoses Not on filedocumented in this encounter Additional Health Concerns Assessment Noted Time PHQ-9 Depression Total Score: 0 01/31/20 21 2:42 PM CDT documented as of this encounter Care Teams Syruper Relationship Specialty Start Date End Date Soni Dougherty APRN PCP - General Advanced Practice Nurse 02/21/22 09/18/22 Diamond Coffman APRN, INSURANCE WRITER [address] [place] [address] PCP - General Certified Nurse Practitioner 09/19/22 01/21/24 Dominique Bernstein MD [address] [facility] [place] [address] PCP - General Family Medicine 01/22/24 Jagdish Hightower MD [address] [place] [address] Consulting Physician Pulmonary Disease 07/25/22 documented as of this encounter
--- OUTSIDE RECORDS SUMMARY | 2025-03-14 12:11 | XMS_ITS | Encounter Summary ---
Author Organization [facility] Address [address] [place] [address] Phone Care Team Providers Care Case Assembler Name Role Phone Diamond Coffman APRN, CNP Primary Care Pro vider Jagdish Hightower MD Unavailable Dominique Bernstein MD Primary Care Provider [phone] Reason for Visit * Reason Comments Medication Refill Encounter Details Date Type Department Care Team (Late st Contact Info) Description 03/15/[address] [facility] - Pulmonology & Sleep Medicine [facility] [address] [place] [address] Jagdish Hightower MD [address] [place] [address] Medication Refill Social History Tobacco [...] AM CDT Medication refilled and signed per [facility] medication standing order for pediatric and adult patients. documented in this encounter Plan of Treatment Upcoming Encounters Date Type Department Care Team (Late st Contact Info) Description 06/10/2025 10:45 AM CDT [facility] [address] [place] [phone] Jagdish Hightower MD [address] [place] [phone] documented as of this encounter Visit Diagnoses Not on filedocumented in this encounter Additional Health Concerns Assessment Noted Time PHQ-9 Depression Total Score: 0 01/31/20 21 2:42 PM CDT documented as of this encounter Care Teams Case Assembler Relationship Specialty Start Date End Date Diamond Coffman APRN, CUSTOM FURRIER [address] [place] [address] PCP - General Certified Nurse Practitioner 09/19/22 01/21/24 Dominique Bernstein MD [address] [place] [address] [place] [address] PCP - General Family Medicine 01/22/24 Jagdish Hightower MD [address] [place] [address] Consulting Physician Pulmonary Disease 07/25/22 documented as of this encounter
--- OUTSIDE RECORDS SUMMARY | 2025-03-14 12:11 | XMS_ITS | Encounter Summary ---
Author Organization [facility] Address [address] [place] [address] Phone Care Team Providers Care Medical Collector Name Role Phone Jagdish Hightower MD Unavailable Dominique Bernstein MD Primary Care Provider [phone] Reason for Referral * Radiology Services (Routine) - Closed Specialty Diagnoses / Procedures Referred By Keya forman Referred To Contact Radiology Diagnoses Visit for screening mammogram Procedures NORMA SCREENING BILATERAL DIGITAL W CAD W ALIYA Dominique Bernstein MD [address] [place] [address] [address] [place] [address] Phone: tel: fax: Referral ID Status Reason Start Date Expiration Date Visits Re quested Visits Authorized [id number] Closed 12/24/2024 1 1 Encounter Details Date Type Department Care Team (Late st Contact Info) Description 12/24/2024 Transcribe Orders [facility] Scheduling [address] [place] [address] Dominique Bernstein MD [address] [place] [address] [address] [place] [address] Visit for screening mammogram (Primary Dx) Social History Tobacco Use Types Packs/Day Years [...] Description 06/10/2025 10:45 AM CDT [facility] [address] [place] [address] Jagdish Hightower MD [address] [place] [address] documented as of this encounter Results * [facility] SCREENING BILATERAL DIGITAL W CAD W ALIYA (01/26/2025 4:11 PM CDT) Anatomical Region Laterality Modality breast Bilateral Mammography 01/26/2025 4:09 PM CDT Narrative 01/28/2025 10:39 AM CDT - NORMA SCREENING BILATERAL DIGITAL [...] to exams dated: 02/17/2021, 03/02/2018, and 06/17/2015 [facility]. BREAST TISSUE:The breasts are almost entirely fatty. [...] signed by: Anne Diamond M.D. ll/penrad:01/27/2025 21:23:55 Manager Of Internal Audit(s): RT Brandon(R)(M), [facility] letter sent: Normal Exam Reading location: [place] [...] to exams dated: 02/17/2021, 03/02/2018, and 06/17/2015 [facility]. BREAST TISSUE:The breasts are almost entirely fatty. [...] next screening exam. Electronically signed by: Anne rain/kassi:01/27/2025 21:23:55 Manager Of Internal Audit(s): RT Brandon(R)(M), [facility] letter sent: Normal Exam Reading location: [place] Mammogram BI-RADS: Category 1: Negative Dominique Bernstein MD IMG MAMMO ORDERABLES Final Re sult documented in this encounter Visit Diagnoses Diagnosis Visit for screening mammogram- Primary Other screening mammogram Visit for screening mammogram Other screening mammogram documented in this encounter Additional Health Concerns Assessment Noted Time PHQ-9 Depression Total Score: 0 01/31/20 21 2:42 PM CDT documented as of this encounter Care Teams Medical Collector Relationship Specialty Start Date End Date Dominique Bernstein MD 4 [facility] [address] [address] PCP - General Family Medicine 01/22/24 Jagdish Hightower MD [address] [place] [address] Consulting Physician Pulmonary Disease 07/25/22 documented as of this encounter
--- OUTSIDE RECORDS SUMMARY | 2025-03-14 12:12 | XMS_ITS | Encounter Summary ---
Author Organization [facility] Address [address] [place] [address] Phone Care Team Providers Care Wet Mixer Name Role Phone Venkat Carrion MD Primary Care Provider [phone] Soni Dougherty APRN Primary Care Provider [phone] Diamond Coffman APRN, QUALITY ASSURANCE CLERK Primary Care Pro vider Jagdish Hightower MD Unavailable Dominique Bernstein MD Primary Care Provider [phone] Reason for Visit * Reason Onset Date Comments Medication Refill 09/06/2020 Encounter Details Date Type Department Care Team (Late st Contact Info) Description 09/06/2020 Refill [facility] - Family Medicine [facility] [address] [place] [phone] Venkat Carrion MD [address] [address] Medication Refill Social History Tobacco Use Types [...] COVID-19? No / Unsure 08/22/2020 1:34 PM IT PROJECT LEAD documented as of this encounter Plan of Treatment Upcoming Encounters Date Type Department Care Team (Late st Contact Info) Description 06/10/2025 10:45 AM CDT Office Visit [facility] - Pulmonology & Sleep Medicine [facility] [address] [place] [address] Jagdish Hightower MD [address] [place] [address] documented as of this encounter Visit Diagnoses Not on filedocumented in this encounter Additional Health Concerns Infection Onset Date Last Indicated Resolved Time COVID - 19 05/25/2021 05/25/2021 06/14/2021 12:1 6 AM CDT Assessment Noted Time PHQ-9 Depression Total Score: 0 09/29/19 20 1:04 PM IT PROJECT LEAD documented as of this encounter Care Teams Wet Mixer Relationship Specialty Start Date End Date Venkat Carrion MD #[address] [facility] [place] [address] PCP - General Family Medicine 07/27/15 02/20/22 Soni Dougherty APRN #[address] [facility] [place] [address] PCP - General Advanced Practice Nurse 02/21/22 09/18/22 Diamond Coffman APRN, QUALITY ASSURANCE CLERK [address] [place] [address] PCP - General Certified Nurse Practitioner 09/19/22 01/21/24 Dominique Bernstein MD [address] [address] PCP - General Family Medicine 01/22/24 Jagdish Hightower MD [address] [place] [phone] Consulting Physician Pulmonary Disease 07/25/22 documented as of this encounter
--- OUTSIDE RECORDS SUMMARY | 2025-03-14 12:12 | XMS_ITS | Referral Summary ---
Author Organization [facility] Address [address] [place] [address] Care Team Providers Care Tool Radial Drill Press Set Up Operator Name Role Phone Augustus Diamond Hull HOT BLAST WORKER Primary Care Provider + Dominique Bernstein MD Unavailable [phone] Carloz Padilla NP Unavailable [phone] Allergies Active Allergy Reactions Criticality Noted Date Comments Aspirin Palpitations Low 02/21/2022 Patient states she is now taking aspirin every for COVID Hydrocodone-Acetaminophe n Other (See comments) Low 02/21/2022 Oxycodone Oxycodone-Acetaminophen Hallucinations Medium 07/01/20 16 Pseudoephedrine Unknown Skwptdb-Yje-Afp Reductase Inhibitors Muscle pain High 10/22/2023 Could [...] total) by mouth daily with breakfast 11/28/19 22 Active LORazepam (ATIVAN) 0.5 mg tabletIndications: anxiety [...] drink = 0.6 oz pur e alcohol) [facility] Utilities Answer Date Recorded In the past 12 months has [employer] electric, gas, oil, or water [employer] threatened to shut off services in your [...] often do you attend chur ch or samaritan services? Never 10/21/2023 Do you belong to any clubs o r organizations such as sabianist groups, unions, fraternal or athletic groups, or [...] place to sleep or slept in a group home (including now)? No 10/21/2023 Personal Safety Answer [...] on file Legal Sex Female 1:02 AM SAFETY DEPOSIT BOXES CUSTODIAN Gender Identity Not on file Sexual Orientation Not on file Last Filed Vital Signs Vital Sign Reading Time Taken Comments Blood Pressure 101/70 11/27/2023 9:48 AM CDT Pulse 70 11/27/2023 9:48 AM CDT Temperature 36.1 C (96.9 F) 10/23/2023 7:35 AM SAFETY DEPOSIT BOXES CUSTODIAN Respiratory Rate 18 11/27/2023 9:48 AM CDT Oxygen Saturation 94% 10/23/2023 8:34 AM SAFETY DEPOSIT BOXES CUSTODIAN Inhaled Oxygen Concentration - - Weight 74.4 kg (164 lb) 11/27/2023 9:48 AM CDT Height 152.4 cm (5') 11/27/2023 9:48 AM CDT Body Mass Index 32.03 11/27/2023 9:48 AM CDT Plan of Treatment Not on file Procedures Procedure Name Priority Date/Time Associated Diagnosis Comments EGFR Routine 10/23/2023 3:15 AM SAFETY DEPOSIT BOXES CUSTODIAN LIPID PANEL Routine 10/21/2023 3:19 AM SAFETY DEPOSIT BOXES CUSTODIAN from Last 3 Months or Most Recently Relevant to Health Maintenance Results * eGFR (10/23/2023 3:15 AM SAFETY DEPOSIT BOXES CUSTODIAN) eGFR 87 mL/min/1. 73 m2 [facility] ([place]) Comment: Interpretive Data Reference Interval Normal >/= [...] last reviewed 2021. Blood 10/23/2023 3:15 AM SAFETY DEPOSIT BOXES CUSTODIAN 10/23/2023 4:54 AM SAFETY DEPOSIT BOXES CUSTODIAN us Ashia Balderas MD LAB BLOOD ORDERABLES Fi nal Result [facility] ([place]) [address] [place] [address] * (ABNORMAL) Lipid panel (10/21/2023 3:19 AM SAFETY DEPOSIT BOXES CUSTODIAN) Cholesterol 227(H) 30 - 199 mg/dL [facility] [...] 2018. LDL, calculated 150(H) <=129 mg/dL [facility] ([place]) Comment: Interpretive Data Ages < or [...] 2018. Non-HDL Cholesterol 175 mg/dL [facility] ([place]) Comment: Interpretive Data Ages < or = [...] on 2018. Chol/HDL ratio 4 [facility] ([place]) Blood 10/21/2023 3:19 AM SAFETY DEPOSIT BOXES CUSTODIAN 10/21/2023 7:55 AM SAFETY DEPOSIT BOXES CUSTODIAN Baldemar Smith MD LAB BLOOD ORDERABLES Final Re sult [facility] ([place]) [address] [place] [address] from Last 3 Months or Most Recently Relevant to Health Maintenance Insurance [facility] [facility] Advance Directives For more information, please contact: [phone] * Full Code (Latest Code Status on File) Date Activated Date Inactivated Comments 10/20/2023 7:39 PM 10/23/2023 3:17 PM Care Teams Tool Radial Drill Press Set Up Operator Relationship Specialty Start Date End Date Diamond Coffman NP PCP - General Nurse Practitioner 01/28/23 Dominique Bernstein MD [address] [place] [address] [address] [place] [address] Resident Family Medicine 10/23/23 Carloz Padilla NP [address] [place] [address] [address] [place] [address] Nurse Practitioner Cardiovascular Disease 10/23/23
--- OUTSIDE RECORDS SUMMARY | 2025-03-14 12:12 | XMS_ITS | Data Portability ---
Author Organization [facility]ITALQuocBel[facility] Address [address] [place] [address] Care Team Providers Care Student Development Dean Name Role Phone SHEEHANSHANKARYASMINE Primary Care Provider Assessment No assessment recorded. Plan of Treatment Reminders Order Date Submit Date Provider Last Modified By Organization Details Last Modified Time Details Appointments None record ed. Lab CBC w/ auto diff 2024 025 [email or web address] [facility], [address] [place] [address], [address], 5 16:10:45 CMP, serum or plasma 2024 025 smarshallma [facility], [address] [place] [address], [address], 5 16:10:45 TSH, ultra- sensit chrissy, serum 2024 025 smarshallma [facility], [address] [place] [address], [address], 5 16:10:45 lipid panel, serum 2024 025 smarshallma [facility], [address] [place] [address], [address], 5 16:10:45 glucos e, finger stick, blood 2023 024 [email or web address] In-Office Order, Internal Use Only DO Not Attach Compendium DO Not Attach Compendium, Do Not Delete/merge, [id number] 4 13:03:37 HbA1c (hemog lobin A1c), blood 2023 024 [facility], [address] [place] [address], [facility] 2, [place], [address], 4 11:14:38 CMP, serum or plasma 2023 024 [facility], [address] [place] [address] 2, [place], [address], 4 06:19:30 TSH, ultra- sensit chrissy, serum 2023 024 [facility], [address] [place] [address] 2, [place], [address], 4 11:14:37 CBC w/ auto diff 2023 024 [facility], [address] [place] [address] 2, [place], [address], 4 06:19:31 Hepati tis C IgG Ab, qual, serum 2023 024 [facility], [address] [place] [address] 2, [place], [address], 4 11:14:36 HIV 1 + 2, meanin gful use set 2023 024 [facility], [address] [place] [address] 2, [place], [address], 4 11:14:39 Referral behavi oral health referr al 2023 024 [email or web address], [address] [place] [address] , Elizabeth [address], [place], [address], 4 11:00:55 gastro entero logist referr al 2023 024 [email or web address] Gianna Silverman MD, [address] [facility] [address], [place], [address], 4 10:31:20 Procedures None record ed. Surgeries None record ed. Imaging MAMMO, screen ing, digita l, bilate ral 2023 024 [email or web address] [facility], [address] [facility] , [place], [address], 4 09:38:14 Medication Orders dicycl omine 20 mg tablet 2024 025 [place] [address], [place], [address], 5 17:34:08 omepra zole 20 mg tablet ,delay ed releas e 2024 025 [facility], [facility] [address], [place], [address], 5 17:34:08 Medrol (Schuyler) 4 mg tablet s in a dose pack 2023 024 [place] [address], [place], [address], 5 15:06:15 colchi cine 0.6 mg tablet 2023 024 [place] [address], [place], [address], 5 16:13:50 nicoti ne 7 mg/24 hr daily transd ermal patch 2023 024 [facility], [address] [facility], [place], [address], 5 16:15:54 carbam azepin e ER 100 mg tablet ,exten ded releas e,12 hr 2023 025 [place] [id number], [address] [place], [address], 16:14:48 [place] Nasal 0.65 % spray aeroso l 2023 024 [facility], [address] [place], [address], 15:16:54 Patient TargetsNo targets recorded. Patient Instructions Encounter Date Encounter Id Patient Instructions Last Modified By Organization Details Last Modified Time 11/27/2023 [id number] A healthy lifest yle: care instructions [email or web address] Not available 11/27/2023 15:16:41 Attending Physic delmer Addendum I did not personally see or examine the patient with the resident. I was physically present to provide indirect supervision through entire encounter. I have reviewed the documentation and agree with the history, physical findings, work-up, and medical decision making as recorded. Jacqui Lowe MD [email or web address] Not available 11/27/2023 15:29:58 01/29/2024 [id number] Quitting Tobacco : Care Instructions [email or web address] Not available 01/29/2024 09:48:23 smoking cessatio n counseling, greater than 3 minutes up to 10 minutes [email or web address] Not available 01/29/2024 09:48:23 Attending Physic delmer Attestation I did not personally see or examine the patient with the resident. I was physically present to provide indirect supervision through entire encounter. I have reviewed the documentation and agree with the history, physical findings, work-up, and medical decision making as recorded. Pati Taylor MD [email or web address] Not available 01/29/2024 10:19:05 04/26/2024 [id number] Attending Physic delmer Attestation I did not personally see or examine the patient with the resident. I was physically present to provide indirect supervision through entire encounter. I have reviewed the documentation and agree with the history, physical findings, work-up, and medical decision making as recorded. Pati Taylor MD [email or web address] Not available 04/26/2024 12:59:46 12/30/2024 [id number] gastroesophageal reflux disease (GERD): care instructions [email or web address] Not available 12/30/2024 17:34:07 body mass index: care instructions Not available 12/30/2024 17:34:07 learning about healthy weight Not available 12/30/2024 17:34:07 I saw the patien t with the resident. I agree with the resident's assessment and plan as documented Ruddy Titus MD [email or web address] Not available 01/16/2025 22:25:48 Reason for Referral Mother Tester Referral for Screening for malignant neoplasm of colon Referring Physician: Dominique Bernstein, Seed Packer, Encounter Date: 01/29/2024 Behavioral Health Referral f or Mixed anxiety and depressive disorder Referring Physician: Dominique Bernstein Seed Packer, Encounter Date: 01/29/2024 Results Created Date Observation Date Name Description Value Unit Range Abnormal Flag Note LastModifiedBy Organization Detail LastModifiedTime 01/29/20 24 01/29/2024 COMP. METAB OLIC PANEL (14) glucose 104 mg/dL 70-99 above high normal Not Available [facility] [address] [place], [address], 01/30/2024 06:19:30 01/29/20 24 01/29/2024 COMP. METAB OLIC PANEL (14) BUN 17 mg/dL 6-24 Not Available [facility] [address] [place], [address], 01/30/2024 06:19:30 01/29/20 24 01/29/2024 COMP. METAB OLIC PANEL (14) creatinine 0.81 mg/dL 0.76-1 .27 Not Available [facility] [address] [place], [address], 01/30/2024 06:19:30 01/29/20 24 01/29/2024 COMP. METAB OLIC PANEL (14) eGFR 85 >=60 Units for eGFR value s are mL/mi n/1.7 3 The eGFR Calcu latio n has not been valid ated for patie nts under the age of 18. If test resul ts are displ ayed for a patie nt under the age of 18, disre eliezer that value . Not Available [facility] [address] [place] [address], [address], 01/30/2024 06:19:30 01/29/20 24 01/29/2024 COMP. METAB OLIC PANEL (14) BUN/creatini ne ratio 21 9-23 Not Available [facility] [address] [place] [address], [address], 01/30/2024 06:19:30 01/29/20 24 01/29/2024 COMP. METAB OLIC PANEL (14) sodium 143 mmol/ L 134-14 4 Not Available [facility] [address] [place] [address], [address], 01/30/2024 06:19:30 01/29/20 24 01/29/2024 COMP. METAB OLIC PANEL (14) potassium 4.0 mmol/ L 3.5-5. 2 Not Available [facility] [address] [place] [address], [address], 01/30/2024 06:19:30 01/29/20 24 01/29/2024 COMP. METAB OLIC PANEL (14) chloride 102 mmol/ L 96-106 Not Available [facility] [address] [place] [address], [address], 01/30/2024 06:19:30 01/29/20 24 01/29/2024 COMP. METAB OLIC PANEL (14) carbon dioxide, total 25 mmol/ L 20-29 Not Available [facility] [address] [place] [address], [address], 01/30/2024 06:19:30 01/29/20 24 01/29/2024 COMP. METAB OLIC PANEL (14) calcium 10.1 mg/dL 8.7-10 .2 Not Available [facility] [address] [place] [address], [address], 01/30/2024 06:19:30 01/29/20 24 01/29/2024 COMP. METAB OLIC PANEL (14) protein, total 7.3 g/dL 6.0-8. 5 Not Available [facility] [address] [place], [address], 01/30/2024 06:19:30 01/29/20 24 01/29/2024 COMP. METAB OLIC PANEL (14) albumin 4.6 g/dL 3.8-4. 9 Not Available [facility] [address] [place], [address], 01/30/2024 06:19:30 01/29/20 24 01/29/2024 COMP. METAB OLIC PANEL (14) globulin, total 2.7 g/dL 1.5-4. 5 Not Available [facility] [address] [place], [address], 01/30/2024 06:19:30 01/29/20 24 01/29/2024 COMP. METAB OLIC PANEL (14) A/G ratio 2.0 1.2-2. 2 Not Available [facility] [address] [place], [address], 01/30/2024 06:19:30 01/29/20 24 01/29/2024 COMP. METAB OLIC PANEL (14) bilirubin, total 0.5 mg/dL 0.0-1. 2 Not Available [facility] [address] [place], [address], 01/30/2024 06:19:30 01/29/20 24 01/29/2024 COMP. METAB OLIC PANEL (14) alkaline phosphatase 75 IU/L 44-121 Not Available [facility] Department [address] [place], [address], 01/30/2024 06:19:30 01/29/20 24 01/29/2024 COMP. METAB OLIC PANEL (14) AST (SGOT) 14 IU/L 0-40 Not Available [facility] Department [address] [place], [address], 01/30/2024 06:19:30 01/29/2001/29/2024 COMP. METAB OLIC PANEL (14) ALT (SGPT) 13 IU/L 0-32 Not Available [facility] [address] [place], [address], 01/30/2024 06:19:30 01/29/20 24 01/29/2024 CBC WITH DIFFE RENTI AL/PL ATELE T WBC 6.4 x10e3 /uL 3.4-10 .8 Not Available [facility] [address] [place], [address], 01/30/2024 06:19:31 01/29/20 24 01/29/2024 CBC WITH DIFFE RENTI AL/PL ATELE T RBC 5.07 x10e6 /uL 3.77-5 .28 Not Available [facility] [address] [place], [address], 01/30/2024 06:19:31 01/29/2001/29/2024 CBC WITH DIFFE RENTI AL/PL ATELE T hemoglobin 16.0 g/dL 11.1-1 5.9 above high normal Not Available [facility] [address] [place], [address], 01/30/2024 06:19:31 01/29/2001/29/2024 CBC WITH DIFFE RENTI AL/PL ATELE T hematocrit 48.5 % 34.0-4 6.6 above high normal Not Available [facility] [address] [place], [address], 01/30/2024 06:19:31 01/29/2001/29/2024 CBC WITH DIFFE RENTI AL/PL ATELE T MCV 96 fL 79-97 Not Available [facility] [address] [place], [address], 01/30/2024 06:19:31 01/29/20 24 01/29/2024 CBC WITH DIFFE RENTI AL/PL ATELE T MCH 31.6 pg 26.6-3 3.0 Not Available [facility] [address] [place], [address], 01/30/2024 06:19:31 01/29/2001/29/2024 CBC WITH DIFFE RENTI AL/PL ATELE T MCHC 33.0 g/dL 31.5-3 5.7 Not Available [facility] [address] [place], [address], 01/30/2024 06:19:31 01/29/2001/29/2024 CBC WITH DIFFE RENTI AL/PL ATELE T RDW 12.4 % 11.5-1 4.5 Not Available [facility] [address] [place], [address], 01/30/2024 06:19:31 01/29/2001/29/2024 CBC WITH DIFFE RENTI AL/PL ATELE T platelets 238 x10e3 /uL 150-45 0 Not Available [facility] [address] [place], [address], 01/30/2024 06:19:31 01/29/2001/29/2024 CBC WITH DIFFE RENTI AL/PL ATELE T neutrophils 49 % notest b. Not Available [facility] [address] [place], [address], 01/30/2024 06:19:31 01/29/2001/29/2024 CBC WITH DIFFE RENTI AL/PL ATELE T lymphs 38 % notest b. Not Available [facility] [address] [place], [address], 01/30/2024 06:19:31 01/29/2001/29/2024 CBC WITH DIFFE RENTI AL/PL ATELE T monocytes 10 % notest b. Not Available [facility] [address] [place], [address], 01/30/2024 06:19:31 01/29/20 24 01/29/2024 CBC WITH DIFFE RENTI AL/PL ATELE T eos 2 % notest b. Not Available [facility] [address] [place] [address], [address], 01/30/2024 06:19:31 01/29/2001/29/2024 CBC WITH DIFFE RENTI AL/PL ATELE T basos 1 % notest b. Not Available [facility] [address] [place] [address], [address], 01/30/2024 06:19:31 01/29/2001/29/2024 CBC WITH DIFFE RENTI AL/PL ATELE T neutrophils (absolute) 3.1 x10e3 /uL 1.4-7. 0 Not Available [facility] [address] [place] [address], [address], 01/30/2024 06:19:31 01/29/2001/29/2024 CBC WITH DIFFE RENTI AL/PL ATELE T lymphs (absolute) 2.4 x10e3 /uL 0.7-3. 1 Not Available [facility] [address] [place] [address], [address], 01/30/2024 06:19:31 01/29/2001/29/2024 CBC WITH DIFFE RENTI AL/PL ATELE T monocytes(ab solute) 0.6 x10e3 /uL 0.1-0. 9 Not Available [facility] [address] [place], [address], 01/30/2024 06:19:31 01/29/20 24 01/29/2024 CBC WITH DIFFE RENTI AL/PL ATELE T eos (absolute) 0.1 x10e3 /uL 0.0-0. 4 Not Available [facility] [address] [place], [address], 01/30/2024 06:19:31 01/29/2001/29/2024 CBC WITH DIFFE RENTI AL/PL ATELE T baso (absolute) 0.1 x10e3 /uL 0.0-0. 2 Not Available [facility] [address] [place], [address], 01/30/2024 06:19:31 01/29/20 24 01/29/2024 CBC WITH DIFFE RENTI AL/PL ATELE T immature granulocytes 0.2 % notest b. Not Available [facility] [address] [place], [address], 01/30/2024 06:19:31 01/29/2001/29/2024 CBC WITH DIFFE RENTI AL/PL ATELE T immature grans (abs) 0.0 x10e3 /uL 0.0-0. 1 Not Available [facility] [address] [place] [address], [address], 01/30/2024 06:19:31 01/29/2001/29/2024 CBC WITH DIFFE RENTI AL/PL ATELE T NRBC 0 % 0-0 Not Available [facility] [address] [place], [address], 01/30/2024 06:19:31 01/29/2001/30/2024 INTER PRETA TION: interpretati on: Commen t Not infec rashid with HCV unles s early or acute infec tion is suspe cted (whic h may be delay ed in an immun ocomp romis ed indiv idual ), or other evide nce exist s to indic ate HCV infec tion. Not Available [facility] ([facility]) [address] [place] [address], [place], [address], 01/30/2024 11:14:35 01/29/20 24 01/30/2024 HCV ANTIB ALFREDITO RFX TO QUANT PCR HCV Ab NON REACTI VE nonrea ctive Not Available [facility] ([facility]) [address] [facility], [place], [address], 01/30/2024 11:14:36 01/29/20 24 01/30/2024 TSH RFX ON ABNOR MAL TO FREE T4 TSH 3.210 uIU/m L 0.450- 4.500 Not Available [facility] ([facility]) [address] [facility], [place], [address], 01/30/2024 11:14:37 01/29/20 24 01/30/2024 HEMOG LOBIN A1C hemoglobin A1C 5.9 % 4.8-5. 6 above high normal Predi abete s: 5.7 - 6.4 Diabe gabriele: >6.4 Glyce jane contr ol for adult s with diabe gabriele: <7.0 Not Available [facility] ([facility]) [address] [facility], [place], [address], 01/30/2024 11:14:38 01/29/20 24 01/30/2024 HIV AB/P2 4 AG WITH REFLE X HIV Ab/P24 Ag screen NON REACTI VE nonrea ctive HIV Negat chrissy HIV-1 /HIV- 2 antib odies and HIV-1 p24 antig en were NOT detec rashid. There is no labor atory evide nce of HIV infec tion. Not Available [facility] ([facility]) [address] [facility], [place], [address], 01/30/2024 11:14:39 04/26/20 24 04/26/2024 gluco se, finge rstic k, blood Blood Glucose: mg/dl 121 Not Available In-Off ice Order Internal Use Only DO Not Attach Compendium DO Not Attach Compendium, Do Not Delete/merge, [id number] 04/26/2024 13:02:07 01/29/20 25 01/26/2025 MAMMO , scree junior, digit al, bilat eral No observ ation record ed. [address] [place], [address], 01/31/2025 10:50:30 Result Notes None recorded. Problems Name Problem SNOMED Code Status Onset Date Resolution Date Notes Provider Name and Address Organization Details Recorded Time Hospital inpatient stay within past 30 days 68903108013 06 Completed 202312/30/2024 Richard Sheehan MD Attn: Accounting ,[address] [facility], [place], [address] , [place] [facility] 18:51:17 Obesity 578814106 Completed 202312/30/2024 Richard Sheehan MD Attn: Accounting ,[address] [facility], [place], [address] , [place] [facility] 19:07:02 Hyperlipi demia 11322029 Active 2023 Ruddy Titus MD Attn: Accounting ,[address] [facility], [place], [address] , [place] [facility] 16:48:44 Chronic obstructi ve pulmonary disease 73006180 Active 2023 Ruddy Titus MD Attn: Accounting ,[address] [place], [address] , [place] [facility] 16:48:42 Postviral cough 706109669 Completed 202312/30/2024 Richard Sheehan MD Attn: Accounting ,[address] [facility], [place], [address] , [place] [facility] 18:51:30 Pain of ear 206156848 Completed 202312/30/2024 Richard Sheehan MD Attn: Accounting ,[address] [place], [address] , [place] [facility] 18:51:28 Abdominal discomfor t 68367030 Active 2024 Richard Sheehan MD Attn: Accounting ,[address] [facility], [place], [address] , [facility] 19:06:37 Gastroeso phageal reflux disease 512747276 Active 2024 Richard Sheehan MD Attn: Accounting ,[address] [facility], [place], [address] , [facility] 19:06:38 Ex-cigare tte smoker 765225945 Active 2024 Richard Sheehan MD Attn: Accounting ,[address] [facility], [place], [address] , [facility] 19:06:40 Marijuana user 711298719 Active 2024 Richard Sheehan MD Attn: Accounting ,[address] [facility], [place], [address] , [facility] 19:06:44 Full blood count outside reference range 483640974 Active 2024 Richard Sheehan MD Attn: Accounting ,[address] [facility], [place], [address] , [facility] 19:06:45 Body mass index 30+ - obesity 118716008 Active 2024 Richard Sheehan MD Attn: Accounting ,[address] [place], [address] , [facility] 19:07:23 Increased blood pressure 22556234 Active 2024 Richard Sheehan MD Attn: Accounting ,[address] [place], [address] , [facility] 19:07:27 Problem Notes None recorded. Procedures Surgical History Date Name Laterality Status Provider Name and Address Organization Details Recorded Time thyroidectomy completed AD Clement [facility] 11/27/2023 14:19:51 Hysterectomy/fatoumata e vagina completed AD Clement [facility] 11/27/2023 14:19:58 repair of shoulder completed Rafa CatAD rasmussen [facility] 11/27/2023 14:20:32 Appendectomy completed Sparkle CatAD rasmussen [facility] 11/27/2023 14:20:38 Hernia Repair completed Sparkle CaAD [facility] 11/27/2023 14:20:53 Imaging Results None recorded. Procedure Notes None recorded. Medical Equipment None Reported. Allergies Allergen ID Allergen Name Allergen Category Reaction Reaction Severity Criticality Documentation Date Start Date Code Code System Note Provider Name and Address Organization Details Recorded Time 744050 acetamino phen / oxycodone medicatio n Not available Not available Not available 11/27/2023 20321 3 RxNorm Patie nt repor ts it makes it diffi cult for her to sleep Richard Sheehan MD Attn: Accountin g,[address] [place], [address], [facility] 5 16:19:33 551944 aspirin medicatio n Not available Not available Not available 11/27/2023 1191 RxNorm Patie nt repor ts it makes her have palpi tatio ns Richard Sheehan MD Attn: Accountin g,[address] [facility], [place], [address], [facility] 5 16:19:39 852399 Product containin g 3-hydroxy -3-methyl glutaryl- coenzyme A reductase inhibitor (product) medicatio n myalgias (muscle pain) moderate Not available 12/30/2024 07703 009 SNOMED Richard Sheehan MD Attn: Sky g,[address] [facility], [place], [address], [facility] 5 18:50:55 Medications Name Sig Start Date Stop Date Status Note LastModified by Organization Details LastModified Time atorvasta tin 40 mg tablet TAKE 1 TABLET BY MOUTH ONCE DAILY 01/28 completed Not Available Not Available Not Available prednison e 10 mg tablet 12/30 completed Not Available Not Available Not Available ipratropi um 0.5 mg-albute rol 3 mg (2.5 mg base)/3 mL nebulizat ion soln USE 1 AMPULE IN NEBULIZE R 4 TIMES DAILY active Not Available Not Available No t Available azithromy danette 250 mg tablet TAKE 2 TABLETS BY MOUTH ON DAY 1, AND THEN TAKE 1 TABLET BY MOUTH ONCE A DAY ON DAY 2 THROUGH DAY 5 12/30 completed Not Available Not Available Not Available carbamaze pine ER 100 mg tablet,ex tended release,1 2 hr Take 1 tablet every 12 hours by oral route for 30 days. 12/30 completed Not Available Not Available Not Available prednison e 20 mg tablet TAKE 3 TABLETS BY MOUTH ONCE DAILY FOR 5 DAYS 12/30 completed Not Available Not Available Not Available sulfameth oxazole 800 mg-trimet hoprim 160 mg tablet TAKE 1 TABLET BY MOUTH TWICE DAILY FOR 7 DAYS 04/26 completed Not Available Not Available Not Available omeprazol e 40 mg capsule,d elayed release TAKE 1 CAPSULE BY MOUTH ONCE DAILY 11/26 completed Not Available Not Available Not Available lorazepam 0.5 mg tablet 11/26 completed Not Available Not Available Not Available dicyclomi ne 20 mg tablet Take 1 tablet 4 times a day by oral route for 14 days. 2024 active Not Available Not Available Not Avai lable lidocaine 5 % topical patch APPLY 1 PATCH TOPICALL Y ONCE DAILY (MAY WEAR UP TO 12 HOURS) active Patient report she is using this for Sciatica Not Available Not Available Not Available omeprazol e 20 mg capsule,d elayed release TAKE ONE (1) TABLET BY MOUTH EVERY DAY active Not Available Not Available No t Available methylpre dnisolone 4 mg tablets in a dose pack take 6 tabs orally on day 1, than take 5 tabs orally on day 2, then take 4 tabs orally on day 3, then take 3 tabs orally on day 4, then take 2 tabs orally on day 5, then take 1 tab orally on day 6 12/30 completed Not Available Not Available Not Available albuterol sulfate HFA 90 mcg/actua tion aerosol inhaler INHALE TWO (2) PUFF(S) BY INHALATI ON ROUTE EVERY FOUR (4) HOURS NEEDED WHEEZING active Not Available Not Available No t Available colchicin e 0.6 mg tablet Take 2 tablets on day 1 then 1 hour later take 1 tablet, then take 1 tablet daily for 6 addition al day 12/30 completed Not Available Not Available Not Available ondansetr on 4 mg disintegr ating tablet DISSOLVE 1 TABLET IN MOUTH FOR MODERATE NAUSEA OR VOMITING OR 2 TABLETS FOR SEVERE NAUSEA OR VOMITING TWICE DAILY NEEDED 11/26 completed Not Available Not Available Not Available cefdinir 300 mg capsule 11/26 completed Not Available Not Available Not Available metformin ER 500 mg tablet,ex tended release 24 hr TAKE 1 TABLET BY MOUTH ONCE DAILY 04/26 completed Not Available Not Available Not Available nicotine 7 mg/24 hr daily transderm al patch Apply 1 patch(es ) every day by transder mal route for 14 days. 12/30 completed Not Available Not Available Not Available [place] Nasal 0.65 % spray aerosol Take 2 sprays as needed by nasal route as needed for 30 days. 2023 active Not Available Not Available Not Avai lable nitrofura ntoin monohydra te/macroc rystals 100 mg capsule TAKE 1 CAPSULE BY MOUTH TWICE DAILY 04/26 completed Not Available Not Available Not Available omeprazol e 20 mg tablet,de layed release take one capsule by mouth once daily 2024 active Not Available Not Available Not Avai lable Wixela Inhub 250 mcg-50 mcg/dose powder for inhalatio n INHALE 1 PUFF IN THE MORNING AND [...] Updated DateTime 4 157.48 cm 30 kg/m2 67468.8 5 g 98 [degF] 17 /min 98 % 98 % 67 /min 123 mm[Hg] 74 mm[Hg] Sparkle Ca [place] [facility] 4 14:07:44 Date Recorded Body height Body mass index (BMI) Body weight Body temperature Respiratory rate Heart rate Oxygen saturation Oxygen saturation in Arterial blood by Pulse oximetry Systolic blood pressure Diastolic blood pressure Provider Name and Address Organization Details Last Updated DateTime 5 157.48 cm 33 kg/m2 51063.0 6 g 98.8 [degF] 16 /min 84 /min 96 % 96 % 149 mm[Hg] 95 mm[Hg] Pam Acuna MA [facility] 5 15:11:44 Date Recorded Body height Body mass index (BMI) Body weight Body temperature Respiratory rate Oxygen saturation Oxygen saturation in Arterial blood by Pulse oximetry Heart rate Systolic blood pressure Diastolic blood pressure Provider Name and Address Organization Details Last Updated DateTime 4 157.48 cm 30.6 kg/m2 45836.2 8 g 97.6 [degF] 18 /min 98 % 98 % 68 /min 127 mm[Hg] 90 mm[Hg] Sparkle Ca MA [facility] 4 09:06:50 Date Recorded Body height Body mass index (BMI) Body weight Respiratory rate Body temperature Heart rate Oxygen saturation Oxygen saturation in Arterial blood by Pulse oximetry Systolic blood pressure Diastolic blood pressure Provider Name and Address Organization Details Last Updated DateTime 4 157.48 cm 30.7 kg/m2 49381.5 2 g 16 /min 97.5 [degF] 94 /min 98 % 98 % 132 mm[Hg] 85 mm[Hg] Lauren Mcgraw MA [facility] 4 11:55:37 Social History Question Answer Notes LastModified by Organizat ion Details LastModified Time Tobacco Smoking Status Former Smoker Sparkle Ca MA null, [facility] 11/27/2023 14:19:34 In The 14 Days Before Symptom Onset, Have You Had Close Contact With A Laboratory-confirm ed COVID-19 While That Case Was Ill? No Information n ot available 12/30/2024 In The 14 Days Before Symptom Onset, Have You Had Close Contact With A Person Who Is Under Investigation For COVID-19 While That Person Was Ill? No Information not available 12/30/2024 Have You Been To An Area Known To Be High Risk For COVID-19? No Information not available 12/30/2024 What Was The Date Of Your Most Recent Tobacco Screening? 12/30/2024 Information not available 12/30/2024 What Is Your Relationship Status? Information not available 12/30/2024 Do You Have Smoke And Carbon Monoxide Detectors In Your Home? Yes Information not available 12/30/2024 Are You Passively Exposed To Smoke? Yes Information no t available 12/30/2024 Sex: Female Functional Status Question Answer Note LastModified by Organizat ion Details LastModified Time Do you use any illicit or recreational drugs? No Information not available 11/27/2023 Do you or have you ever used any other forms of tobacco or nicotine? No Information not available 11/27/2023 What is your level of alcohol consumption? None Information not available 11/27/2023 Are you currently employed? Yes Information not available 12/30/2024 What is your occupation? [employer] Information not available 12/30/2024 Mental Status None recorded. Family History Relationship Description Onset Age of this Age Resolved Age Notes LastModified by Organization Details LastModified Time Father Diabetes mellitus [email or web address] Not available 11/26 14:12:40 Father Heart disease [email or web address] Not available 11/26 14:12:47 Paternal Grandmother Aneurysm [email or web address] Not available 14:15:57 Mother Hyperlipidem ia [email or web address] Not available 2024 18:56:13 Notes:01/29/24 Medical History Condition Response Other Y Thyroid Problems Y Gynecological History Statement/Question Response If Post Menopausal, Age at Menopause 36 Current Control Method Hysterectom y Obstetrics History GPAL:G 2 P 0 0 0 0 Immunizations Vaccine Type Date Status Note Provider Nam e and Address Organization Details Recorded Time Tdap 11/27/2023 completed Jacqui Lowe MD Attn: [address] [place], [address], [facility] 11/27/2023 15:29:36 Past Encounters Encounter ID Performer Location Encounter Start Date Encounter Closed Date Diagnosis/Indication Diagnosis SNOMED-CT Code Diagnosis ICD10 Code Diagnosis Note [id number] Jacqui Lowe MD [place] [address] [facility] [address] 11/27/2023 13:49:22 12/01/2023 09:10:22 Obesity 155593136 E66.9 bmi 30Discusse d diet at length including healthier food options, increase vegetable and fiber intake, reduce salt intake, incorporat e yoga/stret mark practices and exercise 30 min 5 x per week to improve cardiovasc ular health. goal 15 lb weight loss Hyperlipidemia 94237208 E78.5 total cholestero l 227, LDL 150, non HDL 175, TG 126, HDL 52 (done @ [facility] 11/2023) recently failed atorvastat in due to muscle aches - failed multiple statinscar diology is working on trying to get the PCKs9 inhibitor Chronic ob structive pulmonary disease 08313539 J44.9 wixela in AM and PM + albuterol sees pulmonolog ist Dr Luz medellin with patient to add tiotropium for long acting effect - pt expressed understand ing and will discuss with pulmonolog ist to change medication Prediabetes 950497982 R7 3.03 a1c 5.9 with metformin 500 mg po QD once dailyintol erant of metformin (gi s/e) will try weight loss and lifestyle mods Postviral cough 59334519 4 R05.3 post viral URI - recently had flu virus last week and continued cough with associated reminent of congestion likely back pressure to earnormal saline Pain of ear 883625271 H9 2.09 post viral URI - recently had flu virus last week and continued cough with associated reminent of congestion likely back pressure to earnormal saline Hospital i npatient stay within past 30 days 9121149455 106 Z76.89 Was in hospital forsepsis + copd exacerbati on + PNA + SIRS criteriamu ltiple hospitaliz ations for COPD exacerbati onPatient has stopped smoking since the hospital CP + HLDseveral days of coughtotal cholestero l 227, LDL 150, non HDL 175, TG 126, HDL 52. 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 [employer] cardio f/u November 27 2023 <-- will work on getting PCKS9 inhibitor since pt is statin intolerant Ex-smoker 2348266 Z87.89 1 Recently quit smoking - 44 days without a cigarette per patientcon tinue on encourage Administra tion of diphtheria, pertussis, and tetanus vaccine 361294629 Z23 tdap [id number] MD Dante JANSEN 14 [place] [address] [facility] [place] [address] 01/29/2024 08:57:55 01/30/2024 11:37:22 Screening mammography 76448385 Z12.31 HIV screening 251775790 Z11.4 Hepatitis C screening 41 0030282 Z11.59 Screening for malignant neoplasm of colon 747169062 Z12.11 Obese 927324776 E66.9 bmi 30.6Discus sed diet at length including healthier food options, increase vegetable and fiber intake, reduce salt intake, incorporat e yoga/stret mark practices and exercise 30 min 5 x per week to improve cardiovasc ular health.cur rently in midst of quitting smoking and making adjustment s to regular plan - a1c- cmp- TSH w reflex Smoker 14378096 F17.200 previous 44 yr smokertrie d wellbutrin [...] stop cigarette use at tx onset Fatigue 60530312 R53.83 recently quit smokingtro uble sleeping cbc Mixed anxi ety and depressive disorder 306397763 F41.8 phq9 - 5 , gad7 - 4currently going through significan t life changes and recently quit smoking and feels irritable, angry, mood dis regulated, feels ready to talk to someone due to stress - [facility] Left trige viviana neuralgia 6921293517 0930313 G50.0 likely dx with sharp stabbing intermitte nt pain in left jaw carbamazap ine Er 100 mg po bidfollow up in 4 weeks [id number] MD Dante JANSEN 14 IM [address] [facility] [place] [address] 04/26/2024 11:46:24 05/12/2024 08:51:18 Gout 77707364 M10.9 Likely gout with swelling of 1st [...] and prevention given to patient in office. [id number] MD Dante Lee 14 IM [address] [facility] [address] [place] [address] 12/30/2024 14:54:38 01/16/2025 22:25:59 Increased blood pressure 05795328 R03.0 - BP today elevated, however patient reports this is due to white coat syndrome. She usually gets nervous at doctor's visits and her BP at home is usually in 110's/ 70's mmHg.- Advised patient to take her BP at home BID for 2 weeks and bring BP log to next visit- At today's visit, patient stated that even if her BP is high at home, she does not plan on taking any medication - f/u in 2 weeks Marijuana user 980650525 F12.90 - Patient uses Mj gummies- Counselled on MJ cessation Full blood count outside reference range 265835968 R79.89 - On 01/29/2024 patient's Hb was elevated at 16, will order repeat CBC to monitor Hb- Will inform patient of the results once they are received Body mass index 30+ - obesity 911581704 E66.9 - BMI 33- Discussed about diet and weight loss- Labs ordered- Will inform patient of the results once they are received Gastroesop hageal reflux disease 926059091 K21.9 - Patient reports she is using Omeprazole at home for acid reflux and wants it refilled- Omeprazole refilled Abdominal discomfort 433 48478 R10.9 - Dicyclomin e refilled Ex-cigarette smoker 2810 69790 Z87.891 - Reports she quit smoking about 1 year ago General ex amination of patient 090414429 Z00.01 - 59 y/o F here to establish care- BP elevated today (149/95 mmHg)- Wants Omeprazole and Bentyl refilled today, will refill these meds- f/u in 2 weeks to discuss routine screening Health Concerns Section Related Observation LastModified by Organization Detai ls LastModified Time None Recorded Concern Status LastModified by Organization Details LastModified Time None Recorded Advance Directives Directive None Recorded Payers Insurance Date Sequence Insurance Name Policy Number Policy Grant Covered Member ID Grant Member ID Guarantor Name 02/05/2025 1 [employer] [place] DOS ON OR AFTER 2020 (MEDICAID REPLACEMENT - HMO) Terri Stewart Tana [id number] Terri Fajardo Notes Date Note Type Note [...] test 10/22 - no ischemia noted, 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 PATI TAYLOR MD Attn: [address] [facility], [place], [address], [facility] 05/11/2024 17:11:25 5 text/html 59 y/o F presents to the clinic to establish care.Doing well except for mild abdominal discomfort which she states usually resolves with Bentyl; and mild acid reflux which resolves with Omeprazole.Patient is requesting for the medications listed above to be refilled.Previous family medicine provider: Dr. Jackson other concerns. PMH: COPD (reports she is on O2 at night), HLD (however patient reports she cannot take a statin)Patient reported PMH: Gastroparesis, Gastritis, Fatty Liver, Thyroid nodules, Lung nodules, h/o Goiter s/p thyroidectomy 1996, HLD, Diverticulitis, [id number]: see medication listAllergies: see allergy listSurgical Hx: Cholecystectomy, B/l Rotator cuff repairs, Abdominal wall hernia repair, Partial Hysterectomy at age 36 (ovaries remaining), thyroidectomy 1996, Appendectomy, Tonsillectomy during childhoodFH:- Father: DM2, [place]- Mother: HLD OB:- [id number]- Deliveries: both vaginalGYN:- LMP: Postmenopausal since age 36Sexual Hx:- Sexually active: not currently, last sexual activity 8 years agoSocial Hx:- 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- Relationship status: Single- Smoking Status: Quit smoking about 1 year ago- Alcohol Use: was a social drinker in the past, currently drinks no alcohol- Illicit Drug Use: uses JARED Titus MD Attn: [address] [place], [address], [facility] 01/16/2025 22:25:57 OBGyn Episode Ob Episode Information Episode Created Date Number of Fetuses Patient Bloodtype Patient rh Status Prepregnancy Weight lbs Domestic Partner Domestic Partner Phone Father Name Vegetable Trimmer Status 11/27/19 24 1 CLOSED Fetus Data First Name Last Name Admitted to NICU Weight (g) Sex Living Outcome Pediatric Complications Fetus ID Race Codes Race Delivery Type [id number] Nick Calculation Initial Nick Date Initial Exam [...] Domestic Partner Domestic Partner Phone Father Name Vegetable Trimmer Status 11/27/19 24 1 CLOSED Fetus Data First Name Last Name Admitted to NICU Weight (g) Sex Living Outcome Pediatric Complications Fetus ID Race Codes Race Delivery Type [id number] Nick Calculation Initial Nick Date Initial Exam [...]
--- OUTSIDE RECORDS SUMMARY | 2025-03-14 12:12 | XMS_ITS | Data Portability ---
Author Organization [facility] [employer], Main Office Address [address] [place] [address] Assessment Encounter Date Assessment Date Assessment LastModified [...] schedule. F/u with PCP in 3-4 weeks. [email or web address] Not available 06/30/2023 11:25:24 Plan of Treatment Reminders Order Date Submit Date Provider Last Modified By Organization Details Last Modified Time Details Appointments None recorded. Lab ESR (erythrocyt e sedimentati on rate), [facility] [address] [place], [address], 3 14:33:13 C-reactive protein, quantitativ e, serum or plasma 2022 023 [facility] (Lab), [address] [place], [address], 3 08:19:37 DUTCH (antinuclea r antibodies) screen, ifa, serum 2022 023 [facility] (Lab), [address] [place], [address], 3 10:46:26 uric acid, serum or plasma 2022 023 [facility] (Lab), [address] [place], [address], 3 13:47:08 glycohemogl obin, total, blood [address] (Lab), [address] [place], [address], 3 07:59:58 BMP, serum or plasma [address] (Lab), [address] [place], [address], 3 07:59:58 lipid panel, serum [address] (Lab), [address] [place], [address], 3 07:59:58 vitamin B12 + folate, serum or blood [address] (Lab), [address] [place], [address], 3 09:55:57 amylase + lipase, serum [address] (Lab), [address] [place], [address], 3 15:18:58 magnesium, serum or plasma 2022 023 [facility] (Lab), [address] [place], [address], 3 16:02:14 CMP, serum or plasma 2022 023 [facility] (Lab), [address] [place], [address], 3 14:57:18 glycohemogl obin, total, blood 2022 023 [facility] (Lab), [address] [place], [address], 3 19:56:15 lipid panel, serum 2022 023 [facility] (Lab), [address] [place], [address], 3 15:22:07 Referral pain management referral 2022 023 [email or web address] Magalis Cueto, [address] [place], [address], 3 12:07:40 physical therapist referral - *Please call pt to schedule* 2022 023 [facility], [address] [place], [address], 3 17:47:[address] referral 2022 023 [email or web address] Dionicio Purcell MD, [facility] [address], [address], 3 16:22:59 Procedures None recorded. Surgeries None recorded. Imaging US, thyroid - *Please call pt to schedule* 2022 023 [email or web address] Not available 4 09:17:14 US, thyroid - specialist said to have scanned in 3 mo, and if grown from 08/2022, surgical removal necessary. 2022 023 [facility] ([facility]), [address] [place], [address], 4 07:53:24 MAMMO, screening, bilateral - *Please call patient to schedule* 2022 [email or web address] Not available 08:43:38 Medication Orders cyclobenzap rine 10 mg tablet 2022 023 [facility] [place], [address], 11:16:13 diclofenac sodium 75 mg tablet,mauricio yed release 2022 023 [email or web address] [facility], [address] [place], [address], 11:21:38 lidocaine 5 % topical patch 2022 023 [facility], [address] [place], [address], 11:18:08 Patient TargetsNo targets recorded. Patient Instructions Encounter Date Encounter Id Patient Instructions Last Modified By Organization Details Last Modified Time 01/06/2023 [id number] FU in in 3 mo, sooner as needed. Not available 01/09/2023 08:04:50 04/02/2023 [id number] 3 mo for thyroid nodule, copd, dm, gerd, b12 def, anxiety, nausea, uti. Not available 04/02/2023 12:38:07 07/22/2023 [id number] 6 mo for thyroid nodule, copd, dm, gerd, b12 def, anxiety, nausea, uti. Right hand numbness Not available 07/22/2023 11:24:57 Reason for Referral Physical Therapist Referral for Backache *Please call pt to schedule* Referring Physician: [facility], Encounter Date: 04/02/2023 Tobacco Sampler Referral for S kin lesion Referring Physician: [facility], Encounter Date: 04/02/2023 Pain Management Referral for Chronic neck pain Chronic neck and middle back pain Referring Physician: [facility], Encounter Date: 06/30/2023 Results Created Date Observation Date Name Description Value Unit Range Abnormal Flag Note LastModifiedBy Organization Detail LastModifiedTime 09/03/20 22 09/03/2022 URINA LYSIS COMPL ETE, IRIS pH 5.5 pH_un its 5.0-9. 0 Not Available [facility] (Lab) [address] [place], [address], 09/03/2022 20:50:39 09/03/20 22 09/03/2022 URINA LYSIS COMPL ETE, IRIS color dark-o range abnormal Not Available [facility] (Lab) [address] [place], [address], 09/03/2022 20:50:39 09/03/20 22 09/03/2022 URINA LYSIS COMPL ETE, IRIS appear clear Not Available [facility] (Lab) [address] [place], [address], 09/03/2022 20:50:39 09/03/20 22 09/03/2022 URINA LYSIS COMPL ETE, IRIS specific gravity 1.011 1.001- 1.030 Not Available [facility] (Lab) [address] [place], [address], 09/03/2022 20:50:39 09/03/20 22 09/03/2022 URINA LYSIS COMPL ETE, IRIS leukocytes negati ve ronald/u L negati ve- Not Available [facility] (Lab) [address] [place], [address], 09/03/2022 20:50:39 09/03/20 22 09/03/2022 URINA LYSIS COMPL ETE, IRIS nitrite 1+ negati ve- abnormal Not Available [facility] (Lab) [address] [place], [address], 09/03/2022 20:50:39 09/03/20 22 09/03/2022 URINA LYSIS COMPL ETE, IRIS protein negati ve mg/dL negati ve- Not Available [facility] (Lab) [address] [place], [address], 09/03/2022 20:50:39 09/03/20 22 09/03/2022 URINA LYSIS COMPL ETE, IRIS glucose normal mg/dL normal - Not Available [facility] (Lab) [address] [place], [address], 09/03/2022 20:50:39 09/03/20 22 09/03/2022 URINA LYSIS COMPL ETE, IRIS ketones negati ve mg/dL negati ve- Not Available [facility] (Lab) [address] [place], [address], 09/03/2022 20:50:39 09/03/20 22 09/03/2022 URINA LYSIS COMPL ETE, IRIS urobilinogen 3 mg/dL normal - abnormal Not Available [facility] (Lab) [address] [place], [address], 09/03/2022 20:50:39 09/03/20 22 09/03/2022 URINA LYSIS COMPL ETE, IRIS bilirubin 1 mg/dL negati ve- abnormal Not Available [facility] (Lab) [address] [place], [address], 09/03/2022 20:50:39 09/03/20 22 09/03/2022 URINA LYSIS COMPL ETE, IRIS blood negati ve mg/dL negati ve- Not Available [facility] (Lab) [address] [place], [address], 09/03/2022 20:50:39 09/03/20 22 09/03/2022 URINA LYSIS COMPL ETE, IRIS white blood cells 0-8 /i??h pfi?? 0-8 Not Available [facility] (Lab) [address] [place], [address], 09/03/2022 20:50:39 09/03/20 22 09/03/2022 URINA LYSIS COMPL ETE, IRIS red blood cells 0-4 /i??h pfi?? 0-4 Not Available [facility] (Lab) [address] [facility] [place], [address], 09/03/2022 20:50:39 09/03/20 22 09/03/2022 URINA LYSIS COMPL ETE, IRIS bacteria none Not Available [facility] (Lab) [address] [place], [address], 09/03/2022 20:50:39 09/03/20 22 09/03/2022 URINA LYSIS COMPL ETE, IRIS mucous occasi onal /i??l pfi?? abnormal Not Available [facility] (Lab) [address] [place], [address], 09/03/2022 20:50:39 09/03/20 22 09/03/2022 URINA LYSIS COMPL ETE, IRIS squamous epithelial occasi onal /i??l pfi?? abnormal Not Available [facility] (Lab) [address] [place], [address], 09/03/2022 20:50:39 09/12/20 22 09/12/2022 PROTI ME W/INR protime 9.1 secon ds 9.5-11 .5 low Not Available [facility] (Lab) [address] [place], [address], 09/12/2022 13:18:34 09/12/20 22 09/12/2022 PROTI ME [...] HOSPH OLIPI D SYNDR OME. Not Available [facility] (Lab) [address] [place], [address], 09/12/2022 13:18:34 09/12/20 22 09/12/2022 PLATE LET COUNT platelets 227 x10'3 /uL 150-40 0 Not Available [facility] (Lab) [address] [place], [address], 09/12/2022 13:14:41 09/26/19 23 09/26/2022 TSH thyroid-stim ulating hormone 2.110 uIU/m L 0.465- 4.680 Not Available [facility] (Lab) [address] [place], [address], 09/26/2022 20:51:26 09/26/19 23 09/26/2022 T4 FREE free T4 0.86 NG/dL 0.78-2 .19 Not Available [facility] (Lab) [address] [place], [address], 09/26/2022 20:51:07 09/26/19 23 09/26/2022 LIPID PANEL cholesterol 242 mg/dL 140-19 9 high NIH NEIL NSUS RECOM MENDA TION FOR KIRAN STERO L: ADULT CHILD LOW RISK: <200 <170 BORDE RLINE : <200- 239 ----- HIGH RISK: >240 >200 Not Available [facility] (Lab) [address] [place], [address], 09/26/2022 19:48:08 09/26/19 23 09/26/2022 LIPID PANEL triglyceride s 147 mg/dL 0-150 NIH NEIL NSUS REPOR T RECOM MENDA TION FOR TRIGL YCERI JOY: ADULT CHILD LOW RISK: <150 ----- BODER LINE: 150-1 99 ----- HIGH RISK: >200 ----- Not Available [facility] (Lab) [address] [place], [address], 09/26/2022 19:48:08 09/26/19 23 09/26/2022 LIPID PANEL HDL cholesterol 62 mg/dL 40- Not Available [facility] (Lab) [address] [place], [address], 09/26/2022 19:48:08 09/26/19 23 09/26/2022 LIPID PANEL LDL cholesterol, calculated 151 mg/dL 0-130 high NIH NEIL NSUS REPOR T RECOM MENDA TIONS FOR LDL: ADULT CHILD LOW RISK <130 <110 (OPTI MAL LDL) <100 ----- ASHLIE RLINE : 130-1 59 ----- HIGH RISK: >160 >130 A TRIGL YCERI DE RESUL T >400 INVAL IDATE S THE CALCU LATIO N FOR LDL FRACT IONAT ION - THE LDL RESUL T WILL NOT BE REPOR RASHID. Not Available [facility] (Lab) [address] [place], [address], 09/26/2022 19:48:08 01/11/20 23 01/10/2023 COMPR EHENS JACOB METAB OLIC PANEL sodium 141 mmol/ L 137-14 5 Not Available [facility] (Lab) [address] [place], [address], 01/10/2023 14:57:18 01/11/20 23 01/10/2023 COMPR EHENS JACOB METAB OLIC PANEL potassium 4.6 mmol/ L 3.5-5. 1 Not Available [facility] (Lab) [address] [place], [address], 01/10/2023 14:57:18 01/11/20 23 01/10/2023 COMPR EHENS JACOB METAB OLIC PANEL chloride 103 mmol/ L 98-107 Not Available [facility] (Lab) [address] [place], [address], 01/10/2023 14:57:18 01/11/20 23 01/10/2023 COMPR EHENS JACOB METAB OLIC PANEL carbon dioxide 30 mmol/ L 22-30 Not Available [facility] (Lab) [address] [place], [address], 01/10/2023 14:57:18 01/11/20 23 01/10/2023 COMPR EHENS JACOB METAB OLIC PANEL anion gap 12.6 mmol/ L 14-22 low Not Available [facility] (Lab) [address] [place], [address], 01/10/2023 14:57:18 01/11/20 23 01/10/2023 COMPR EHENS JACOB METAB OLIC PANEL glucose 92 mg/dL 70-99 Not Available [facility] (Lab) [address] [place], [address], 01/10/2023 14:57:18 01/11/20 23 01/10/2023 COMPR EHENS JACOB METAB OLIC PANEL BUN 14 mg/dL 8-19 Not Available [facility] (Lab) [address] [place], [address], 01/10/2023 14:57:18 01/11/20 23 01/10/2023 COMPR EHENS JACOB METAB OLIC PANEL creatinine 0.95 mg/dL 0.66-1 .25 Not Available [facility] (Lab) [address] [place], [address], 01/10/2023 14:57:18 01/11/20 23 01/10/2023 COMPR EHENS JACOB METAB OLIC PANEL GFR >60 Refer ence Range : [place] ge GFR Healt hy Adult : >60 [...] calcu lator is avail able on the [facility] websi te: [email or web address] :[email or web address] rg/pr ofess ional s/kdo qi/gf r_cal culat or Not Available [facility] (Lab) [address] [place], [address], 01/10/2023 14:57:18 01/11/20 23 01/10/2023 COMPR EHENS JACOB METAB OLIC PANEL alkaline phosphatase 61 U/L 38-126 Not Available [facility] (Lab) [address] [place], [address], 01/10/2023 14:57:18 01/11/20 23 01/10/2023 COMPR EHENS JACOB METAB OLIC PANEL alanine aminotransfe rase 22 U/L 0-35 Not Available [facility] (Lab) [address] [place], [address], 01/10/2023 14:57:18 01/11/20 23 01/10/2023 COMPR EHENS JACOB METAB OLIC PANEL aspartate aminotransfe rase 24 U/L 15-37 Not Available [facility] (Lab) [address] [place], [address], 01/10/2023 14:57:18 01/11/20 23 01/10/2023 COMPR EHENS JACOB METAB OLIC PANEL bilirubin, total 0.60 mg/dL 0.20-1 .30 Not Available [facility] (Lab) [address] [place], [address], 01/10/2023 14:57:18 01/11/20 23 01/10/2023 COMPR EHENS JACOB METAB OLIC PANEL calcium 9.8 mg/dL 8.4-10 .2 Not Available [facility] (Lab) [address] [facility] [place], [address], 01/10/2023 14:57:18 01/11/20 23 01/10/2023 COMPR EHENS JACOB METAB OLIC PANEL total protein 7.9 g/dL 6.3-8. 2 Not Available [facility] (Lab) [address] [place], [address], 01/10/2023 14:57:18 01/11/20 23 01/10/2023 COMPR EHENS JACOB METAB OLIC PANEL albumin 4.7 g/dL 3.4-5. 0 Not Available [facility] (Lab) [address] [place], [address], 01/10/2023 14:57:18 01/11/20 23 01/10/2023 COMPR EHENS JACOB METAB OLIC PANEL globulin 3.2 g/dL 2.6-4. 2 Not Available [facility] (Lab) [address] [place], [address], 01/10/2023 14:57:18 01/11/20 23 01/10/2023 COMPR EHENS JACOB METAB OLIC PANEL A/G ratio 1.5 ratio 1.0-2. 0 Not Available [facility] (Lab) [address] [place], [address], 01/10/2023 14:57:18 01/11/20 23 01/10/2023 LIPID PANEL cholesterol 235 mg/dL 140-19 9 high NIH NEIL NSUS RECOM MENDA TION FOR KIRAN STERO L: ADULT CHILD LOW RISK: <200 <170 BORDE RLINE : <200- 239 ----- HIGH RISK: >240 >200 Not Available [facility] (Lab) [address] [place], [address], 01/10/2023 15:22:07 01/11/20 23 01/10/2023 LIPID PANEL triglyceride s 136 mg/dL 0-150 NIH NEIL NSUS REPOR T RECOM MENDA TION FOR TRIGL YCERI JOY: ADULT CHILD LOW RISK: <150 ----- BODER LINE: 150-1 99 ----- HIGH RISK: >200 ----- Not Available [facility] (Lab) [address] [place], [address], 01/10/2023 15:22:07 01/11/20 23 01/10/2023 LIPID PANEL HDL cholesterol 55 mg/dL 40- Not Available [facility] (Lab) [address] [place], [address], 01/10/2023 15:22:07 01/11/20 23 01/10/2023 LIPID PANEL [...] WILL NOT BE REPOR RASHID. Not Available [facility] (Lab) [address] [place], [address], 01/10/2023 15:22:07 01/11/20 23 01/10/2023 VITAM IN B12 (ANGELICA GAETANO ) vb12 440 pg/mL 239-93 1 Not Available [facility] (Lab) [address] [place], [address], 01/10/2023 16:01:54 01/11/20 23 01/10/2023 FOLAT E, SERUM /PLAS MA folate 9.05 NG/mL 2.76-2 0.0 Not Available [facility] (Lab) [address] [place], [address], 01/10/2023 16:01:56 01/11/20 23 01/10/2023 AMYLA SE SERUM amylase 57 U/L 30-110 Not Available [facility] (Lab) [address] [place], [address], 01/10/2023 16:02:06 01/11/20 23 01/10/2023 LIPAS E SERUM lipase 103 U/L 23-300 Not Available [facility] (Lab) [address] [place], [address], 01/10/2023 16:02:10 01/11/20 23 01/10/2023 MAGNE SIUM magnesium 1.7 mg/dL 1.6-2. 3 Not Available [facility] (Lab) [address] [place], [address], 01/10/2023 16:02:14 01/11/20 23 01/10/2023 HEMOG LOBIN A1C HA1C 6.0 % 4.0-6. 0 Diabe gabriele Scree junior Crite jacobo: <5.7% Consi stent with absen ce of diabe gabriele 5.7-6 .4% Consi stent with incre ased risk for diabe gabriele (pred iabet es) >OR=6 .5% Consi stent with diabe gabriele REFER ENCE: Diabe gabriele Care 2016, 39(Martin ppl.1 ):s13 -s22 Not Available [facility] (Lab) [address] [place], [address], 01/10/2023 19:56:15 07/23/2007/23/2023 C REACT JACOB PROTE IN,UL TRA SENS C-reactive protein 0.13 mg/dL 0.0-0. 5 Not Available [facility] (Lab) [address] [place], [address], 07/23/2023 13:46:49 07/23/2007/23/2023 BASIC METAB OLIC PANEL sodium 139 mmol/ L 137-14 5 Not Available [facility] (Lab) [address] [place], [address], 07/23/2023 13:47:04 07/23/2007/23/2023 BASIC METAB OLIC PANEL potassium 4.7 mmol/ L 3.5-5. 1 Not Available [facility] (Lab) [address] [place], [address], 07/23/2023 13:47:04 07/23/2007/23/2023 BASIC METAB OLIC PANEL chloride 103 mmol/ L 98-107 Not Available [facility] (Lab) [address] [place], [address], 07/23/2023 13:47:04 07/23/2007/23/2023 BASIC METAB OLIC PANEL carbon dioxide 31 mmol/ L 22-30 high Not Available [facility] (Lab) [address] [place], [address], 07/23/2023 13:47:04 07/23/2007/23/2023 BASIC METAB OLIC PANEL anion gap 9.7 mmol/ L 14-22 low Not Available [facility] (Lab) [address] [place], [address], 07/23/2023 13:47:04 07/23/20 23 07/23/2023 BASIC METAB OLIC PANEL glucose 86 mg/dL 70-99 Not Available [facility] (Lab) [address] [place], [address], 07/23/2023 13:47:04 07/23/20 23 07/23/2023 BASIC METAB OLIC PANEL BUN 14 mg/dL 8-19 Not Available [facility] (Lab) [address] [place], [address], 07/23/2023 13:47:04 07/23/20 23 07/23/2023 BASIC METAB OLIC PANEL creatinine 0.71 mg/dL 0.66-1 .25 Not Available [facility] (Lab) [address] [place], [address], 07/23/2023 13:47:04 07/23/20 23 07/23/2023 BASIC METAB OLIC PANEL GFR >60 Refer ence Range : [place] ge GFR Healt hy Adult : >60 [...] or ethni c subgr oups, such as [facility] nics. Outsi de the valid ated mian [...] calcu lator is avail able on the [facility] websi te: [email or web address] :[email or web address] rg/pr ofess ional s/kdo qi/gf r_cal culat or Not Available [facility] (Lab) [address] [place] [address], [address], 07/23/2023 13:47:04 07/23/2007/23/2023 BASIC METAB OLIC PANEL calcium 9.7 mg/dL 8.4-10 .2 Not Available [facility] (Lab) [address] [place] [address], [address], 07/23/2023 13:47:04 07/23/2007/23/2023 LIPID PANEL cholesterol 246 mg/dL 140-19 9 high NIH NEIL NSUS RECOM MENDA TION FOR KIRAN STERO L: ADULT CHILD LOW RISK: <200 <170 BORDE RLINE : <200- 239 ----- HIGH RISK: >240 >200 Not Available [facility] (Lab) [address] [place] [address], [address], 07/23/2023 13:47:06 07/23/2007/23/2023 LIPID PANEL triglyceride s 122 mg/dL 0-150 NIH NEIL NSUS REPOR T RECOM MENDA TION FOR TRIGL YCERI JOY: ADULT CHILD LOW RISK: <150 ----- BODER LINE: 150-1 99 ----- HIGH RISK: >200 ----- Not Available [facility] (Lab) [address] [place] [address], [address], 07/23/2023 13:47:06 07/23/20 23 07/23/2023 LIPID PANEL HDL cholesterol 53 mg/dL 40- Not Available [facility] (Lab) [address] [place] [address], [address], 07/23/2023 13:47:06 07/23/20 23 07/23/2023 LIPID PANEL [...] WILL NOT BE REPOR RASHID. Not Available [facility] (Lab) [address] [place], [address], 07/23/2023 13:47:06 07/23/20 23 07/23/2023 URIC ACID SERUM uric acid 4.9 mg/dL 2.5-6. 2 Not Available [facility] (Lab) [address] [place], [address], 07/23/2023 13:47:08 07/23/20 23 07/23/2023 SEDIM ENTAT ION RATE erythrocyte sedimentatio n rate 15 mm/HR 0-20 Not Available [facility] (Lab) [address] [place], [address], 07/23/2023 14:33:13 07/23/20 23 07/23/2023 HEMOG LOBIN A1C HA1C 5.9 % 4.0-6. 0 Diabe gabriele Scree junior Crite jacobo: <5.7% Consi stent with absen ce of diabe gabriele 5.7-6 .4% Consi stent with incre ased risk for diabe gabriele (pred iabet es) >OR=6 .5% Consi stent with diabe gabriele REFER ENCE: Diabe gabriele Care 2016, 39(Martin ppl.1 ):s13 -s22 Not Available [facility] (Lab) [address] [place], [address], 07/23/2023 18:00:27 07/23/20 23 07/25/2023 DUTCH BY IFA RFX TITER /ОЛЬГА DANIE antinuclear antibodies, ifa Negati ve Negat [...] ). Perfo rmed at: [facility] [address] [facility], [place] [id number] Lab Direc tor: Madi moeller PhD, Phone : [phone] Not Available [facility] (Lab) [address] [facility], [place], [address], 07/25/2023 09:14:10 09/02/20 22 08/30/2022 US, thyro id No observ ation record ed. [id number] Not Available 11/14/2022 00:42:47 09/17/19 23 09/17/2022 US-fn a W img 1st les [facility] [address] [place] [address] [phone] Patiiliana t Name: KANDIS ARREOLA Access ion #: [id number] Sex: F : 1965 0 Locati [...] was perfor med. Page 1 of 2 [facility] Joe forman Name: KANDIS ARREOLA Access ion #: [id number] Sex: F : 1965 0 Exam [...] Histop atholo gical analys is is yuly frederick Create d and electr onical ly signed by: Miguelito mcallister MD Signed Date: 09/17/19 9:50 AM (CT) Dictat ed by: Miguelito mcallister MD (CT) (CT) Page 2 of 2 [id number] [facility] (Imaging) [address] [place], [address], 11/14/2022 00:42:47 01/17/2009/17/2022 US-fn a W img 1st les [facility] [address] [facility] [place] [address] [phone] Joe forman Name: KANDIS ARREOLA Access ion #: [id number] Sex: F : 1965 0 Locati [...] (CT) (CT) Page 1 of 3 [facility] Joe t Name: MAXWELLKANDIS NICHOLS Access ion #: [id number] Sex: F : 1965 0 Exam Date: 09/17/19 8:28 AM Exam Name: US FNA W IMG 1ST LES Admitt ing Diagno sis(es ): Report _ID: [id number] EXAM: US FNA W IMG 1ST LES [...] ing comple tion of the FNA, fly re was held Page 2 of 3 [facility] Joe forman Name: KANDIS ARREOLA Access ion #: [id number] Sex: F : 1965 0 Exam [...] 2. Histop atholo gical analys is is pendin g. Create d and electr onical ly signed by: Miguelito mcallister MD Signed Date: 09/17/19 9:50 AM (CT) Dictat ed by: Miguelito mcallister MD (CT) (CT) Page 3 of 3 [email or web address] [facility] (Imaging) [address] [facility] [place], [address], 01/21/2023 16:47:39 02/04/2002/03/2023 MAMMO , scree junior, bilat eral [facility] [address] [facility] [place] [address] [phone] Joe forman Name: KANDIS ARREOLA Access ion #: [id number] Sex: F : 1965 4 Locati [...] entire ly fatty. Page 1 of 2 [facility] Joe forman Name: KANDIS ARREOLA L Access ion #: [id number] Sex: F : 1965 4 Exam Date: 12:34 PM Exam Name: SCRN BREAST ALIYA BILAT Admitt ing Diagno sis(es ): No masses , asymme tries, suspic ious calcif icatio ns, or reina ectura l distor tion are seen. IMPRES LULI: BIRADS 1: Assess ment comple te. Negati ve. Recomm end annual screen ing mammog illia. Accord ing to the [employer], yearly mammog eleanor are recomm ended starti ng at age 40 and contin uing as long as the woman is in good health . Clinic al Breast Exam should be part of the period health exam-a bout every 3 years for women in their 20s and 30s and every year for women 40 and over. Breast self-e xam is an option for women in their 20s. Any breast change noted on the breast self-e xam she would be report ed prompt ly to the joe forman[facility] er. A negati ve mammog lilia [...] Dictat ed by: Miguelito mcallister MD DD: 2:13 PM (CT) DT: 2:13 PM (CT) Page 2 of 2 [id number] [facility] (Imaging) [address], [place], [address], 02/05/2023 08:43:38 04/02/20 23 02/12/2023 XR, thora cic spine , 3 view No observ ation record ed. Not Available 2022 11:07:35 09/18/19 24 US, head + neck, soft tissu e [facility] [address] [facility] [place] [address] Patien t Name: KANDIS ARREOLA Access ion #: [id number] Sex: F : 1965 0 Dictat ed By: Scotty Rodrigues Attend ing Physic delmer: VERO MOHAN Orderi ng Physic delmer: VERO MOHAN Exam Date: 2023 12:50 PM Exam Name: [...] at 2023 16:44: 22 PM Page 1 [email or web address] [facility] (Imaging) [address] [place], [address], 09/23/2023 11:45:05 Result Notes Documentation Provider Name and Address Organization Details Recorded Time Mammo, Screening, Bilateral : [facility] [address] [place] [address] Patient Name: TERRI ARREOLA Sex: F : 1965 Location: RAD Attending Physician: Ordering Physician: LAURA MOHAN Exam Date: 02/03/2023 12:34 PM Exam Name: MG REGINALD ROACH ALIYARadames WALSH Admitting Diagnosis(es): MAMMOGRAPHY REPORT - FINAL EXAM: MG MONTELONGO BREAST ALIYA JILLIAN HISTORY: routine mammogram 57-year-old female with no current breast complaints. The patient has a history of bilateral breast reduction surgery in 2009. COMPARISON: None available. TECHNIQUE: Bilateral CC and MLO views of the breasts were performed. Digital Mammography images were obtained. CAD (computer assisted detection) was utilized. 3D Digital breast tomosynthesis was performed and used in the interpretation of images. FINDINGS: The breasts are almost entirely fatty. Page 1 of 2 [facility] Patient Name: TERRI ARRELOA Sex: F : 1965 Exam Date: 02/03/2023 12:34 PM Exam Name: MG REGINALD ROACH ALIYARadames WALSH Admitting Diagnosis(es): No masses, asymmetries, suspicious calcifications, or architectural distortion are seen. IMPRESSION: BIRADS 1: Assessment complete. Negative. Recommend annual screening mammography. According to the [employer], yearly mammograms are recommended starting at age 40 and continuing as long as the woman is in good health. Clinical Breast Exam should be part of the periodic health exam-about every 3 years for women in their 20s and 30s and every year for women 40 and over. Breast self-exam is an option for women in their 20s. Any breast change noted on the breast self-exam she would be reported promptly to the patient's health care provider. A negative mammography report should not discourage follow-up or biopsy of a clinically significant finding and/or abnormality. Dense breast tissue may obscure small neoplasms. This patient has been entered into a mammography reminder system with a target date for her next mammogram. Created and electronically signed by: Miguelito Holloway MD Signed Date: 02/03/2023 2:13 PM (CT) Dictated by: Miguelito Holloway MD (CT) (CT) Page 2 of 2 STACY Magaña Sh[place] [facility] 02/05/2023 08:43:38 Problems Name Problem SNOMED Code Status Onset Date Resolution Date Notes Provider Name and Address Organization Details Recorded Time Chronic obstructiv e pulmonary disease 33078291 Active 2021 Not Available [facility] 3 00:38:35 Nausea and vomiting 44326796 Active 2021 Not Available [facility] 3 00:38:35 Hypomagnes emia 354414238 Active 2021 Not Available [facility] 3 00:38:35 Steatotic liver disease 954686892 Active 2021 Not Available [facility] 3 00:38:36 Gastroesop hageal reflux disease 371220684 Active 2021 Not Available [facility] 3 00:38:36 Gastropare sis syndrome 040319623 Active 2021 Not Available [facility] 3 00:38:36 Thyroid nodule 640553319 Active 2021 Not Available [facility] 3 00:38:36 Mass of thyroid gland 650484312 Active 2022 Not Available [facility] 3 00:38:36 Gastroesop hageal reflux disease without esophagiti s 712895200 Active 2021 Not Available [facility] 3 00:38:36 Hypertrigl yceridemia 354931499 Active 2021 Not Available [facility] 3 00:38:36 Diverticul itis 515491284 Active 2021 Not Available [facility] 3 00:38:36 Type 2 diabetes mellitus without complicati on 759550406 Active 2021 Not Available [facility] 3 00:38:37 Diverticul ar disease of colon 599628345 Active 2021 Not Available [facility] 3 00:38:37 Radiologic increased density of lung 196222603 Active 2021 Not Available [facility] 3 00:38:37 Nausea 294967376 Active 2021 Not Available [facility] 3 00:38:37 Acute urinary tract infection 554659909 Active 2021 Not Available [facility] 3 00:38:37 Gastritis 7855495 Active 2021 Not Available [facility] 3 00:38:37 Anxiety 84451977 Active 2021 Not Available [facility] 3 00:38:37 Hyperlipid emia 10736771 Active 2021 Not Available [facility] 3 00:38:38 Vitamin B12 deficiency (non anemic) 00791101 Active 2021 Not Available [facility] 3 00:38:38 Diabetes mellitus 89810080 Active 2021 Not Available [facility] 3 00:38:38 Smoker 71445655 Active 2021 Not Available [facility] 3 00:38:38 Hyperglyce jenna 22296658 Active 2021 Not Available [facility] 3 00:38:38 Hepatomega ly 16066912 Active 2021 Not Available [facility] 3 00:38:38 Cramp in lower limb 503643140 Active 2022 Laura Mohan NP [address], [place], [address] , [facility] 3 12:34:26 Abdominal pain 46597030 Active 2022 Laura Mohan NP [address], [place], [address] , [facility] 3 12:35:27 Skin lesion 30878549 Active 2022 Laura Mohan NP [address], [place], [address] , [facility] [place] [facility] 3 13:13:07 Backache 576257300 Active 2022 Laura Mohan NP [address], [place], [address] , [facility] 3 12:23:54 Degenerati on of thoracic interverte bral disc 89202750 Active 2022 Laura Mohan NP [address], [place], [address] , [employer] [facility] [place] [employer] [facility] 3 12:36:27 Degenerati on of cervical interverte bral disc 62702197 Active 2022 Laura Mohan NP [address], [place], [address] , [employer] [facility] [employer] [facility] 3 12:36:34 Chronic thoracic back pain 8020492895527 03 Active 2022 Sancho Poole MD [address], [place], [address] , [employer] [facility] [employer] [facility] 3 11:09:03 Chronic neck pain 8829718334887 Active 2022 Sancho Poole MD [address], [place], [address] , [employer] [facility] [employer] [facility] 3 11:09:13 Cervical radiculopa thy 72221426 Active 2022 Sancho Poole MD [address], [place], [address] , [employer] [facility] [employer] [facility] 3 11:09:26 Overweight 268267223 Active 2022 Sancho Poole MD [address], [place], [address] , [employer] [facility] [employer] [facility] 3 11:10:12 Ex-smoker 3508473 Active 2022 Sancho Poole MD [address], [place], [address] , [employer] [place] [employer] [facility] 3 11:10:20 Neuropathy 607237861 Active 2022 Sancho Poole MD [address], [place], [address] , [employer] [facility] [employer] [facility] 3 11:25:02 Pain of multiple joints 50018941 Active 2022 Laura Mohan NP [address] [facility] [facility] [address], [place], [address] , [facility] [employer] 3 11:14:48 Problem Notes None recorded. Procedures Surgical History Date Name Laterality Status Provider Name and Address Organization Details Recorded Time 09/15/19 19 Hernia Repair completed Not Available [facility] 11/14/2022 00:35:37 09/15/19 13 Cholecystectomy completed Not Available [facility] 11/14/2022 00:35:37 09/15/18 98 tonsilectomy/adeno ids completed Not Available [facility] 11/14/2022 00:35:37 09/15/18 81 Appendectomy completed Not Available [facility] 11/14/2022 00:35:37 Hysterectomy completed Not Available [facility] 11/14/2022 00:35:37 Imaging Results None recorded. Procedure Notes None recorded. Medical Equipment None Reported. Allergies Allergen ID Allergen Name Allergen Category Reaction Reaction Severity Criticality Documentation Date Start Date Code Code System Note Provider Name and Address Organization Details Recorded Time 75416 acetamino phen / hydrocodo ne medicatio n Not available Not available Not available 11/14/2022 38282 2 RxNorm Not Available [facility] 3 00:42:20 49742 Sudafed medicatio n Not available Not available Not available 11/14/202262521 2 RxNorm Not Available [facility] 3 00:42:20 22201 acetamino phen / oxycodone medicatio n Not available Not available Not available 11/14/2022 35907 3 RxNorm Not Available [facility] 3 00:42:20 Medications Name Sig Start Date [...] % 88 /min 16 /min 98.2 [degF] 54514.8 2 g 114 mm[Hg] 78 mm[Hg] Not Available [facility] 3 00:37:01 Date Recorded Body height Body mass index (BMI) Body weight Body temperature Heart rate Respiratory rate Oxygen saturation Oxygen saturation in Arterial blood by Pulse oximetry Systolic blood pressure Diastolic blood pressure Provider Name and Address Organization Details Last Updated DateTime 3 157.48 cm 30.1 kg/m2 04938.9 g 98 [degF] 75 /min 16 /min 98 % 98 % 130 mm[Hg] 84 mm[Hg] Laura De Souza RN [facility] [employer] 3 12:07:09 Date Recorded Body height Body mass index (BMI) Body weight Body temperature Heart rate Oxygen saturation Oxygen saturation in Arterial blood by Pulse oximetry Systolic blood pressure Diastolic blood pressure Provider Name and Address Organization Details Last Updated DateTime 3 157.48 cm 27.4 kg/m2 58440.4 1 g 98.7 [degF] 80 /min 97 % 97 % 109 mm[Hg] 83 mm[Hg] Rita Merrill MA [facility] [employer] 3 12:10:39 Date Recorded Body height Body mass index (BMI) Body weight Body temperature Heart rate Respiratory rate Oxygen saturation Oxygen saturation in Arterial blood by Pulse oximetry Systolic blood pressure Diastolic blood pressure Provider Name and Address Organization Details Last Updated DateTime 3 157.48 cm 26.9 kg/m2 51737.4 3 g 97.1 [degF] 82 /min 16 /min 98 % 98 % 110 mm[Hg] 78 mm[Hg] Antonio Sherwood [place] - [facility] [employer] 3 10:52:07 Date Recorded Body height Body mass index (BMI) Body weight Body temperature Heart rate Respiratory rate Oxygen saturation Oxygen saturation in Arterial blood by Pulse oximetry Systolic blood pressure Diastolic blood pressure Provider Name and Address Organization Details Last Updated DateTime 3 157.48 cm 27.1 kg/m2 31419.4 2 g 96.6 [degF] 58 /min 16 /min 98 % 98 % 122 mm[Hg] 80 mm[Hg] Laura De Souza RN [place] [facility] [employer] 3 10:55:36 Social History Question Answer Notes LastModified by Organization Details LastModified Time Tobacco Smoking Status Former Smoker using patches instead Not Available [facility] 11/14/2022 00:35:01 Do You Have An Advance Directive? No Information not available 01/06/2023 What Is Your Level Of Caffeine Consumption? Moderate MIGRATION.0301 [id number] Information not available 11/14/2022 What Is Your [...] Was Ill? No Information not available 01/06/2023 What Type Of Diet Are You Following? REGULAR MIGRATION.0301 119596 Information not available 11/14/2022 Which Illicit Or Recreational Drugs Have You Used? Gummies MIGRATION.0301 632102 Information not available 11/14/2022 How Many Days [...] Your Family Or Social Situation? No MIGRATION.0301 420840 Information not available 11/14/2022 Do You Use Insect Repellent Routinely? No MIGRATION.0301 295049 Information not available 11/14/2022 Where Do You Live? [place] MIGRATION.0301 079313 Information not available 11/14/2022 Do You Have A Medical Power Of Mobile Engineer? No Information not available 01/06/2023 What Was The Date Of Your Most Recent Tobacco Screening? 01/02/2022 MIGRATION.0301 383967 Information not available 11/14/2022 Do You Have Any Pets? Yes Dog-- Yorkie MIGRATION.0301 021987 Information not available 11/14/2022 What Is Your Relationship Status? MIGRATION.0301 108877 Information not available 11/14/2022 Do You Use Your Seat Belt Or Car Seat Routinely? Yes Information not available 01/06/2023 Do You Have Smoke And Carbon Monoxide Detectors In Your Home? Yes MIGRATION.0301 312120 Information not available 11/14/2022 Are You Passively Exposed To Smoke? No MIGRATION.0301 193360 Information not available 11/14/2022 Are There Any Smokers In Your House? No MIGRATION.0301 388851 Information not available 11/14/2022 How Much Tobacco Do You Smoke? 1 PPW MIGRATION.0301 689056 Information not available 11/14/2022 What Types Of Sporting Activities Do You Participate In? Walk Information not available 07/22/2023 Do You Use Sunscreen Routinely? Yes MIGRATION.0301 238506 Information not available 11/14/2022 Have You Recently Traveled Abroad? No MIGRATION.0301 111220 Information not available 11/14/2022 Have You Used IV Drugs? No MIGRATION.0301 015980 Information not available 11/14/2022 Sex: Female Functional Status Question Answer Note LastModified by Organizat ion Details LastModified Time Do you use any illicit or recreational drugs? Yes MIGRATION.[id number] 026 Information not available 11/14/2022 Do you or have you ever used any other forms of tobacco or nicotine? No MIGRATION.4491249 026 Information not available 11/14/2022 What is your level of alcohol consumption? None MIGRATION.0971280 026 Information not available 11/14/2022 Are you currently employed? No Information not available 01/06/2023 What is your exercise level? Occasional Information not available 07/22/2023 Mental Status Question Answer Note LastModified by Organization D etails LastModified Time Do you feel stressed (tense, restless, nervous, or anxious, or unable to sleep at night)? [id number] Information not available 01/06/2023 Family History Relationship Description Onset Age of this Age Resolved Age Notes LastModified by Organization Details LastModified Time Father Diabetes mellitus MIGRATION.490 [id number] Not available 11/14/2022 00:35:41 Mother Aortic aneurysm MIGRATION.371 [id number] Not available 11/14/2022 00:35:41 Mother Osteoporosis MIGRATION.0 30 [id number] Not available 11/14/2022 00:35:41 Medical History Condition Response Abdominal Pain Y ANXIETY DISORDER Y DIABETES, TYPE Y Gynecological History Statement/Question Response If Post Menopausal, Age at Menopause 51 Date of Last Mammogram 02/03/2023 Date of Last Colonoscopy Most Recent Mammogram Most Recent Bone Density Obstetrics History GPAL:G 0 P 0 0 0 0 Past Encounters Encounter ID Performer Location Encounter Start Date Encounter Closed Date Diagnosis/Indication Diagnosis SNOMED-CT Code Diagnosis ICD10 Code Diagnosis Note [id number] [facility] Prem hussein [facility] [place] [address] 11/27/2021 00:00:00 11/27/2021 13:41:25 [id number] Clifton Martell MD [facility] Prem hussein [facility] [place] [address] 12/04/2021 00:00:00 12/04/2021 10:39:53 [id number] _ATHN_MIGR ATION_1 _ATHENA_M IGRATION_ DEFAULT_1 _1 , 01/02/2022 00:00:00 01/02/2022 11:37:06 [id number] Clifton Martell MD [facility] Prem hussein [facility] [place] [address] 01/21/2022 00:00:00 01/21/2022 09:12:49 [id number] Clifton Martell MD [facility] [place] [address] , [place] [address] 02/05/2022 00:00:00 02/05/2022 10:16:20 [id number] Clifton Martell MD [facility] [place] [address] , [place] [address] 02/12/2022 00:00:00 02/12/2022 20:43:52 [id number] Clifton Martell MD [facility] [place] [address] , [place] [address] 02/19/2022 00:00:00 02/19/2022 10:31:07 [id number] Clifton Martell MD [facility] [place] [address] , [place] [address] 02/26/2022 00:00:00 02/26/2022 10:44:12 [id number] Clifton Mratell MD [facility] [place] [facility] [address] , [place] [address] 03/19/2022 00:00:00 03/19/2022 11:07:18 [id number] [facility] [place] [address] , [place] [address] 04/23/2022 00:00:00 04/23/2022 13:30:02 [id number] Clifton Martell MD [facility] [place] [address] , [place] [address] 05/23/2022 00:00:00 05/23/2022 11:12:58 [id number] Clifton Martell MD [facility] [place] [address] , [place] [address] 05/31/2022 00:00:00 05/31/2022 18:13:31 [id number] Clifton Martell MD [address] [place] [address] 07/04/2022 00:00:00 07/04/2022 10:45:36 [id number] Clifton Martell MD [address] , [place] [address] 08/05/2022 00:00:00 08/05/2022 13:28:02 [id number] Sancho Poole MD [address] [address] 09/03/2022 00:00:00 09/03/2022 17:02:03 [id number] Sancho Poole MD [address] [address] 09/17/2022 00:00:00 09/17/2022 15:54:37 [id number] Laura Mohan NP [address] [address] 01/06/2023 11:47:34 01/06/2023 13:02:01 Chronic obstructive pulmonary disease 13302164 J44.9 Albuterol Neb, albuterol inhaler.Wi xelaSmomaren daily cessation. Gastroesop hageal reflux disease 881056991 K21.[address] Marah Stokes. Mass of thyroid gland 23 9334919 E04.9 US, thyroid needed. If enlarged will need to get surgical removal of lesions. Pt will need new referral to new surgeon if removal of anything needed. Type 2 jan betes mellitus without complication 522667005 E11.9 metformin ER 500 mg po daily. Hyperlipidemia 39080700 E78.5 low fat diet. Anxiety 63815542 F41.9 Hydroxyzin e HCL 25 mg po tid prn. Still anxious and tearful regarding health. Vitamin B1 2 deficiency (non anemic) 94538294 E53.8 B12 supplement Nausea and vomiting 1692 1999 R11.2 ondansetro n 4 mg.Omepraz ole 40 mg Cramp in lower limb 4499 88868 R25.2 Magnesium level. Abdominal pain 83587921 R10.9 Always- Back on dicyclomin e 20 mg po q 6 hours Screening for malignant neoplasm of breast 663253242 Z12.39 Mammogram ordered. [id number] Laura Mohan NP [address] [address] 04/02/2023 11:53:50 04/02/2023 12:42:25 Chronic obstructive pulmonary disease 33383484 J44.9 Albuterol Neb, albuterol inhaler.Wi xelaSmokin g cessation. Type 2 jan betes mellitus without complication 280611236 E11.9 metformin ER 500 mg po daily. Gastroesop hageal reflux disease 000146626 K21.[address] Marah Stokes.Om eprazole 20 mg from 40 mg on 01/22/23 Vitamin B1 2 deficiency (non anemic) 53627838 E53.8 B12 supplement Smoker 58294801 F17.200 Anxiety 93827772 F41.9 Hydroxyzin e HCL 25 mg po tid prn. Still anxious and tearful regarding health. Nausea 456913830 R11.0 Off the zofran. treating with peppermint . Backache 744828710 M54.9 Referring to PT.Pt states she has been to chiro before.Sci atica bilateral at times. Skin lesion 24432008 L98 .9 Derm referral requested per pt case to get few lesions looked at. Hyperlipidemia 00640207 E78.5 low fat diet. Degenerati on of thoracic intervertebral disc 22734970 M51.34 not interested in surgery. Has specialist appt 09/2023 Degenerati on of cervical intervertebral disc 26057409 M50.30 not interested in surgery. Has specialist appt 09/2023 [id number] Sancho Poole MD [address] [address] 06/30/2023 10:46:06 06/30/2023 11:34:49 Chronic thoracic back pain 7665386459 73786 M54.6 Chronic neck pain 761542 0801 107 M54.2 Cervical radiculopathy 88421920 M54.12 Degenerati on of thoracic intervertebral disc 23308978 M51.34 Ex-smoker 5015698 Z87.89 1 Overweight 689864006 E66 .3 Type 2 jan betes mellitus without complication 539936624 E11.9 Neuropathy 890812116 G62 .9 [id number] Laura Mohan NP [facility] [address] [address] 07/22/2023 10:45:08 07/22/2023 11:25:41 Chronic obstructive pulmonary disease 09212317 J44.9 Albuterol Neb, albuterol inhaler.Wi xelaSmokin g cessation. Type 2 jan betes mellitus without complication 988530015 E11.9 metformin ER 500 mg po daily. Gastroesop hageal reflux disease 199966352 K21.[address] Marah Stokes.Om eprazole 20 mg from 40 mg on 01/22/23 Vitamin B1 2 deficiency (non anemic) 16001515 E53.8 B12 supplement Smoker 17443809 F17.200 cessation encouraged . 1 ppd Anxiety 40245394 F41.9 Hydroxyzin e HCL 25 mg po tid prn. Nausea 684248084 R11.0 Off the zofran. treating with peppermint . Backache 886134553 M54.9 Referring to PT.Pt states she has been to chiro before.Sci atica bilateral at times. Hyperlipidemia 06014256 E78.5 low fat diet. Degenerati on of thoracic intervertebral disc 16035790 M51.34 not interested in surgery. Has specialist appt 09/2023 Degenerati on of cervical intervertebral disc 70411766 M50.30 not interested in surgery. Has specialist appt 09/2023 Pain of mu ltiple joints 40252248 M25.50 seeing pain management .Will get arthritis panel. Thyroid nodule 203297671 E04.1 Health Concerns Section Related Observation LastModified by Organization Detai ls LastModified Time None Recorded Concern Status LastModified by Organization Details LastModified Time None Recorded Advance Directives Directive N: Payers Insurance Date Sequence Insurance Name Policy Number Policy Grant Covered Member ID Grant Member ID Guarantor Name 07/19/2023 1 [employer] BET[employer] [place] - DOS ON OR AFTER 2020 (MEDICAID REPLACEMENT - HMO) Terri Arreola [id number] Terri Arreola Notes Date Note Type Note Provider Name and Address Organization Details Recorded Time 01/06/2023 text/html Here for 3 mo ch nelson up. Recently filed for disability. States [...] mo, but last imaging done August 2022. Katja- lung doctor for physical formDoesn't have psych- has a disability form for mental health. Laura Mohan NP [address], [place], [address], [place] [facility] 01/09/2023 08:06:03 04/02/2023 text/html Here for follow up. Still having shoulder, neck and back pain.Having trouble walking at times. Has been from lower back pain.Down on weight 15 lbs. Changed diet. Drinking only water.Still forgetful and wheezing at times. TUna, cheese, milk., iced coffee. Tried protein shake- hurts stomach.Using natural supplements. Laura Mohan NP [address], [place], [address], [employer] 04/02/2023 12:40:36 06/30/2023 text/html ACV: C/o chronic [...] in the past. Sancho Poole MD [address] [facility] [address], [place], [address], [employer] 06/30/2023 11:27:15 07/22/2023 text/html Here for follow [...] eat right. Loves broccoli, but very gassy. Laura Mohan NP [address], [facility] [address], [place], [address], [employer] [facility] [employer] 07/22/2023 11:25:31 OBGyn Episode No OBEpisode recorded.
--- OUTSIDE RECORDS SUMMARY | 2025-03-14 12:12 | XMS_ITS | Encounter Summary ---
Author Organization [facility] Address [address] [place] [address] Phone Care Team Providers Care Grain Cleaner And Transfer Operator Name Role Phone Venkat Carrion MD Primary Care Provider [phone] Soni Dougherty APRN Primary Care Provider [phone] Diamond Coffman APRN, HYDROPONICS GROWER Primary Care Pro vider Jagdish Hightower MD Unavailable Dominique Bernstein MD Primary Care Provider [phone] Reason for Visit * Reason Comments Medication Refill Encounter Details Date Type Department Care Team (Late st Contact Info) Description 04/09/2021 Refill [facility] - Pulmonology & Sleep Medicine [facility] [address] [place] [address] Jagdish Hightower MD [address] [place] [address] Medication Refill Social History Tobacco [...] Medical Group - Pulmonology & Sleep Medicine [facility] [address] [place] [address] Jagdish Hightower MD [address] [place] [address] documented as of this encounter Visit Diagnoses Not on filedocumented in this encounter Additional Health Concerns Infection Onset Date Last Indicated Resolved Time COVID - 19 05/25/2021 05/25/2021 06/14/2021 12:1 6 AM CDT Assessment Noted Time PHQ-9 Depression Total Score: 0 01/31/20 21 2:42 PM CDT documented as of this encounter Care Teams Grain Cleaner And Transfer Operator Relationship Specialty Start Date End Date Venkat Carrion MD [address] [address] PCP - General Family Medicine 07/27/15 02/20/22 Soni Dougherty APRN #[address] [address] PCP - General Advanced Practice Nurse 02/21/22 09/18/22 Diamond Coffman APRN, HYDROPONICS GROWER [address] [place] [address] PCP - General Certified Nurse Practitioner 09/19/22 01/21/24 Dominique Bernstein MD [address] [facility] [address] [place] [address] [place] [address] PCP - General Family Medicine 01/22/24 Jagdish Hightower MD [address] [place] [address] Consulting Physician Pulmonary Disease 07/25/22 documented as of this encounter
--- OUTSIDE RECORDS SUMMARY | 2025-03-14 12:12 | XMS_ITS | Encounter Summary ---
Author Organization [facility] Address [address] [place] [address] Phone Care Team Providers Care Bicycle Courier Name Role Phone Venkat Carrion MD Primary Care Provider [phone] Soni Dougherty APRN Primary Care Provider [phone] Diamond Coffman APRN, BUSINESS PROCESS ASSOCIATE Primary Care Pro vider Jagdish Hightower MD Unavailable Dominique Bernstein MD Primary Care Provider [phone] Reason for Visit * Reason Comments Medication Refill Encounter Details Date Type Department Care Team (Late st Contact Info) Description 01/20/2021 Refill [facility] - Pulmonology & Sleep Medicine [facility] [address] [place] [address] Jagdish Hightower MD [address] [place] [address] Medication Refill Social History Tobacco [...] Sleep Medicine [facility] [address] [place] [address] Jagdish Hightower MD [address] [place] [address] documented as of this encounter Visit Diagnoses Not on filedocumented in this encounter Additional Health Concerns Infection Onset Date Last Indicated Resolved Time COVID - 19 05/25/2021 05/25/2021 06/14/2021 12:1 6 AM CDT Assessment Noted Time PHQ-9 Depression Total Score: 0 09/29/19 20 1:04 PM PHOTO FINISH PHOTOGRAPHER documented as of this encounter Care Teams Bicycle Courier Relationship Specialty Start Date End Date Venkat Carrion MD [address] [facility] [address] PCP - General Family Medicine 07/27/15 02/20/22 Soni Dougherty APRN [address] [facility] [address] PCP - General Advanced Practice Nurse 02/21/22 09/18/22 Diamond Coffman APRN, BUSINESS PROCESS ASSOCIATE [address] [place] [address] PCP - General Certified Nurse Practitioner 09/19/22 01/21/24 Dominique Bernstein MD [address] [address] PCP - General Family Medicine 01/22/24 Jagdish Hightower MD [address] [place] [address] Consulting Physician Pulmonary Disease 07/25/22 documented as of this encounter
--- OUTSIDE RECORDS SUMMARY | 2025-03-14 12:12 | XMS_ITS | Clinical Summary ---
Author Organization [facility] Address [address] [place] [address] Care Team Providers Care Chicken Hanger Name Role Phone Augustus Diamond Hull LOOM DOFFER Primary Care Provider + Dominique Bernstein MD Unavailable [phone] Carlo[address] Padilla NP Unavailable [phone] Allergies Active Allergy Reactions Criticality Noted Date Comments Aspirin Palpitations Low 02/21/2022 Patient states she is now taking aspirin every for COVID Hydrocodone-Acetaminophe n Other (See comments) Low 02/21/2022 Oxycodone Oxycodone-Acetaminophen Hallucinations Medium 07/01/20 16 Pseudoephedrine Unknown Pvbmfve-Pvc-Bqv Reductase Inhibitors Muscle pain High 10/22/2023 Could [...] History Date Comments Arthritis Arthritis; Comme nts: [facility] 04/10/2016 - Hx Other Medical Hysterectomy pl anned; Comments: [facility] 04/10/2016 - Anxiety Diverticulitis Hypercholesteremia Gastric reflux [...] drink = 0.6 oz pur e alcohol) [facility] Utilities Answer Date Recorded In the past 12 months [facility] gas, oil, or water [employer] threatened to shut off services in your [...] often do you attend chur ch or scientologist services? Never 10/21/2023 Do you belong to any clubs o r organizations such as religious groups, unions, fraternal or athletic groups, or [...] place to sleep or slept in a senior care (including now)? 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 UP MECHANIC Gender Identity Not on file Sexual Orientation Not on file Obstetrics History Last Filed Vital Signs Vital Sign Reading Time Taken Comments Blood Pressure 101/70 11/27/2023 9:48 AM CDT Pulse 70 11/27/2023 9:48 AM CDT Temperature 36.1 C (96.9 F) 10/23/2023 7:35 AM TUNE UP MECHANIC Respiratory Rate 18 11/27/2023 9:48 AM CDT Oxygen Saturation 94% 10/23/2023 8:34 AM TUNE UP MECHANIC Inhaled Oxygen Concentration - - Weight 74.4 [...] 02/04/2024 02/03/2023, 02/17/2021, 02/17/2021, Additional history exists Lipid Panel 10/21/2024 10/21/2023, 06/20/2022 eGFR 10/23/2024 10/23/2023, 0203/2024, 10/21/2023, Additional history exists Influenza Vaccine (Season Ended) 2025 08/20/2017, 05/23/2016, 05/22/2012, Additional history exists DTaP/Tdap/Td Vaccine (3 - Td or Tdap) 07/15/2029 07/15/2019, 09/15/2008 Procedures Procedure Name Priority Date/Time Associated Diagnosis Comments EGFR Routine 10/23/2023 3:15 AM TUNE UP MECHANIC LIPID PANEL Routine 10/21/2023 3:19 AM TUNE UP MECHANIC from Last 3 Months or Most Recently Relevant to Health Maintenance Results * eGFR (10/23/2023 3:15 AM TUNE UP MECHANIC) eGFR 87 mL/min/1. 73 m2 PAIGE PEREYRA [...] last reviewed 2021. Blood 10/23/2023 3:15 AM TUNE UP MECHANIC 10/23/2023 4:54 AM TUNE UP MECHANIC us Ashia Balderas MD LAB BLOOD ORDERABLES Fi nal Result PAIGE PEREYRA (ANNE) [facility] Department [place] [address] * (ABNORMAL) Lipid panel (10/21/2023 3:19 AM TUNE UP MECHANIC) Cholesterol 227(H) 30 - 199 mg/dL PAIGE [...] 2018. Non-HDL Cholesterol 175 mg/dL PAIGE PEREYRA ([place]) Comment: Interpretive Data Ages < or = [...] on 2018. Chol/HDL ratio 4 PRISCILA PEREYRA ([place]) Blood 10/21/2023 3:19 AM TUNE UP MECHANIC 10/21/2023 7:55 AM TUNE UP MECHANIC Baldemar Smith MD LAB BLOOD ORDERABLES Final Re sult PAIGE RODDY ([place]) [address] [facility] Department [place] [address] from Last 3 Months or Most Recently Relevant to Health Maintenance Insurance [facility] [employer] [facility] [employer] [facility] Advance Directives For more information, please contact: [phone] * Full Code (Latest Code Status on File) Date Activated Date Inactivated Comments 10/20/2023 7:39 PM 10/23/2023 3:17 PM Care Teams Chicken Hanger Relationship Specialty Start Date End Date Diamond Coffman NP PCP - General Nurse Practitioner 01/28/23 Dominique Bernstein MD [address] [place] [address] [place] [address] Resident Family Medicine 10/23/23 Carloz Padilla NP [address] [place] [address] [place] [address] Nurse Practitioner Cardiovascular Disease 10/23/23
[2025-03-14 12:13] VITALS: BP 148/92; PULSE 79; RESP 20; TEMP 36.7; O2SAT 98
--- NOTE | 2025-03-14 12:28 | ED.URI ---
HPI - URI/Sore Throat General Chief Complaint: Upper Respiratory Infection Stated Complaint: Sore Throat Time Seen by Provider: 03/14/25 12:30 Source: patient and RN notes reviewed Mode of arrival: ambulatory Limitations: no limitations History of Present Illness HPI Narrative: 59-year-old female with history of COPD presents with concern for cough and sore throat for 4-5 days. Reports she has progressively felt worse every day since the symptoms started. Reports she has been using her inhaler and nebulizer at home without much relief. She tender to flu and COVID test at home that were negative MD elicited complaint: cough and sore throat Related Data Home Medications ?Medication ?Instructions ?Recorded ?Confirmed ?Last Taken ?Type albuterol sulfate 90 mcg/actuation 2 inh inhalation DIRECTED 02/10/20 05/07/24 Unknown History aerosol inhaler omeprazole 20 mg capsule,delayed 20 mg PO DAILY 05/07/24 05/07/24 Unknown History release albuterol sulfate 2.5 mg/3 mL mg 03/14/25 Unknown History (0.083 %) solution for nebulization dicyclomine 20 mg tablet mg 03/14/25 Unknown History fluticasone propion-salmeterol inhalation 03/14/25 03/14/25 History Allergies Allergy/AdvReac Type Severity Reaction Status Date / Time NSAIDS (Non-Steroidal Allergy Unknown Unknown Verified 03/14/25 12:22 Anti-Inflamma pseudoephedrine (From AdvReac Palpitation Verified 03/14/25 12:22 Sudafed) s Review of Systems Review of Systems: CONSTITUTIONAL: Reports malaise. Denies chills, sweats, or fever. EYES: Denies visual changes, redness, or discharge. ENT: Reports rhinorrhea, congestion, and sore throat. CARDIOVASCULAR: Denies chest pain, palpitations, or edema. RESPIRATORY: Reports cough. Denies dyspnea. GASTROINTESTINAL: Denies abdominal pain, nausea, vomiting, diarrhea SKIN: Denies rash or itching. MUSCULOSKELETAL: Reports myalgia. NEUROLOGIC: Denies headache. All systems reviewed & are unremarkable except as noted in HPI and below PMFSH Past Medical History Medical History Colon abnormality History of colon infection 44 years ago Nicotine abuse Quite 5 years ago Umbilical hernia X2 Pneumonia frequent Acute infection of sinus COPD (chronic obstructive pulmonary disease) Surgical History Surgical History History of hernia surgery X2 umbilical last repaired 08/2019 or 10/04 per Terri History of colonoscopy History of tonsillectomy History of hysterectomy History of shoulder surgery bilateral History of cholecystectomy Hx of appendectomy Family History Family History Father Hypertension ETOH abuse Diabetes mellitus Mother AAA (abdominal aortic aneurysm) Social History Social History (Updated 11/26/24 @ 16:25 by Park Hunter NP) Smoking status: Former smoker Tobacco type: cigarettes Second hand tobacco smoke exposure: No Additional smoking assessment comments: Reports that she quit 1 year ago Alcohol intake: current Alcohol use details: Socially Substance use: never Living arrangements: with family Occupation/Education: occupation Gender identity (if verbalized by the patient): Female Comments At time of signature, agree with nursing past medical, surgical, social and family history. There is no relevant family history pertinent to the presenting complaint Exam Narrative: GENERAL: Well-appearing, well-nourished, and in no acute distress. HEAD: Normocephalic EYES: PERRLA, conjunctivae clear ENT: Nares clear. Mucous membranes moist. TM pearly stout with discharge light reflex bilaterally; no tragal tenderness. Oropharynx not erythematous without lesions. Tonsils not enlarged and without exudate, no drooling, no hoarseness, no trismus, uvula midline. NECK: Supple. No lymphadenopathy CHEST: Scattered rhonchi, breath sounds equal. No wheezing, rhonchi, rales, or stridor. No respiratory distress, speaks in full sentences. HEART: Regular rate and rhythm. No murmur heard. SKIN: Warm, dry, no rash. NEURO: Alert and oriented x3. PSYCH: Normal mood and affect Course Course Emergency Course: Patient is aware of diagnosis, understands and agrees to treatment plan. Anticipatory guidance given. Patient agrees to follow-up as directed and is aware of reasons to seek care at the emergency department. Portions of this record may have been created with voice recognition software Level of Care: Express Care Visit Vital Signs Vital signs: Vital Signs Temperature 98.1 F 03/14/25 12:13 Pulse Rate 79 03/14/25 12:13 Respiratory Rate 20 03/14/25 12:13 Blood Pressure 148/92 H 03/14/25 12:13 Pulse Oximetry 98 03/14/25 12:13 Oxygen Delivery Room Air 03/14/25 12:13 Temperature 98.1 F 03/14/25 12:13 Pulse Rate 79 03/14/25 12:13 Respiratory Rate 20 03/14/25 12:13 Blood Pressure 148/92 H 03/14/25 12:13 Pulse Oximetry 98 03/14/25 12:13 Oxygen Delivery Room Air 03/14/25 12:13 Reviewed. MDM - URI/Sore Throat MDM Narrative Medical decision making narrative: Differential diagnosis considered: Roy virus, strep pharyngitis, allergic rhinitis, upper respiratory tract infection, sinusitis, rhinosinusitis, nasopharyngitis. viral pharyngitis, otitis media, otitis externa, pneumonia, bronchitis, viral cough syndrome, viral syndrome, and influenza. Exam findings show no acute concerns or changes; patient is non-toxic appearing and is in no distress. Patient is appropriate for outpatient treatment and follow-up. Lab Data Attestation: I reviewed the patient's lab results. Critical Care Time Critical Care Time Critical Care Time: No Discharge Plan Discharge Clinical Impression: COPD with acute exacerbation Patient Disposition: Home Condition: Stable Instructions: Antibiotic Form, Chronic Lung Disease and Infection Prevention (ED) Additional Instructions: 1) Please follow-up with your primary care doctor in the next 1-2 days. 2) If you have any worsening of symptoms or any other urgent concerns please go to the ER. 3) Please take medications as prescribed and continue taking your home medications as usual. 4) Please read and follow information included in discharge instructions. Patient Language: Dominican Prescriptions: New azithromycin [Zithromax Z-Schuyler] 250 mg tablet See Rx Instructions .ROUTE .COMPLEX Qty: 6 0RF Rx Instructions: take 500 mg today (day 1), then 250 mg for 4 days (days 2-5) methylprednisolone [Medrol (Schuyler)] 4 mg tablets,dose pack See Rx Instructions .ROUTE .COMPLEX Qty: 21 0RF Rx Instructions: orally per package directions No Action albuterol sulfate 2.5 mg /3 mL (0.083 %) solution for nebulization dicyclomine 20 mg tablet fluticasone propion-salmeterol [Wixela Inhub] inhalation albuterol sulfate 90 mcg/actuation HFA aerosol inhaler 2 inh INHALATION DIRECTED omeprazole 20 mg capsule,delayed release(DR/EC) 20 mg PO DAILY prednisone 20 mg tablet 40 mg PO DAILY 5 Days Qty: 10 0RF Follow-up/Referrals: UNKNOWN,DOCTOR [Primary Care Provider] - Stand Alone Forms: Work/School Release IP Time of Disposition: 12:36
[2025-03-14 12:34] LABS: EDSTREPNEGPOS1 Negative (Negative)
== END 2025-03-14 12:40 | disposition home or self-care (01) ==
PROVIDERS: Emergency Provider Nurse Practitioner
DX: J44.1 Chronic obstructive pulmonary disease with (acute) exacerbation (principal); Z87.891 Personal history of nicotine dependence
CPT/HCPCS: 87081; 87880; 99213; G0463